=== PATIENT | male | born 1980 | race Caucasian/White ===

== ENCOUNTER 2018-05-19 19:47 | Emergency (ER) | payer OTHER, SELFPAY ==
[2018-05-19 19:50] VITALS: BP 134/93; PULSE 94; RESP 16; O2SAT 97
--- NOTE | 2018-05-19 20:09 | W.ED.GENAD ---
Discharge Plan Disposition Patient Disposition: HOME Condition: Good Discharge Details Chief Complaint: Headache Clinical Impression: HTN (hypertension), Acute tension headache Primary Care Provider: Roxann Mosher ED Provider: Quoc Ventura Home Meds and New Rx's Prescriptions: No Action cetirizine [Zyrtec] 10 MG capsule 10 mg PO DAILY RF: 0 Discharge Instructions Instructions: DASH Eating Plan (ED), Hypertension (ED) Additional Instructions: Please avoid salt in your diet. Please try to exercise regularly every day for at least one hour. Please try to lose 10-20 pounds over the next few months to improve your blood pressure. If you notice any worsening of your symptoms, or any new symptoms such as vomiting, diarrhea, fever, chills, shortness of breath, chest pain, numbness, weakness, or fainting , please return immediately to the emergency department for reevaluation. Please follow up with your primary care provider as soon as possible for reassessment and reevaluation. As always, it was a pleasure participating in your medical care today. Referrals: Roxann Mosher [Primary Care Provider] - Medical Decision Making This is a very pleasant 37-year-old male who presents for evaluation of hypertension. At home his systolic was in the 140s and diastolic in the 90s. He had a mildly associated headache, which she took Tylenol and is aspirin and had complete eventual resolution of the headache immediately prior to arrival. On arrival with repeat blood pressure assessment his blood pressure was in the 120s over the 80s. He demonstrates no focal neurologic deficits. His headache is resolved. He demonstrates no red flags for potential concerning headache. The headache was mainly in the posterior aspect of the neck. It was improved with massage. No evidence of meningitis. No systemic symptoms of fever numbness tingling or neurologic deficit. 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 He states that things have been extremely crazy over the last 1-2 weeks. He feels that this is part of his symptoms which I do agree with. He has been monitoring his salt intake, but admits that he has not been doing as well as he should. He denies any family history of myocardial infarction, intracranial aneurysm or stroke. He demonstrates no neurologic deficits at this time. I feel that his symptoms are most likely secondary to mild obesity, stress, salt intake, which inadvertently lead to a headache with his stress and worsening of his blood pressure. With normal blood pressure here, I feel that he can be safely discharged home with close follow-up with his primary care provider. I recommended follow-up for potential antihypertensive medication, as well as diet change recommendations, lifestyle changes, weight loss and exercise. I have extensively reviewed the treatment plan and discharge instructions with the patient and their family. I have addressed all patient concerns at this time. The patient and family was made aware of what symptoms to monitor for that would warrant a return to the emergency department. Discussed the plan with the patient and family, they demonstrate verbal understanding and agreement with our assessment and plan at this time. HPI General Date/Time Provider Initiated Documentation: 05/19/18 20:08. HPI Narrative: This is a 37-year-old male with no significant past medical history except for a Pj fundoplication secondary to GERD. He presents todayOut of concern for elevated blood pressure. 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 He states that he developed a mild headache earlier this morning. It was gradual in onset, not the worst headache of his life. He had no other associated symptoms of visual changes, fever, chills, thunderclap component, numbness, tingling, or weakness. The patient did take his blood pressure at home and noticed his systolic to be in the 130s and 140s, and his diastolic to be in the 90s. He came in for evaluation. He did take 2 Tylenol and 2 aspirin prior to arrival. Since then his headache has completely resolved, and he has no other complaints of pain or headache. When the patient did arrive he did check on his home blood pressure cuff and his blood pressure had returned to normal, this correlated with our machine with a systolic in the 120s and a diastolic in the 80s. Patient denies any previous cardiac history. He denies any family history of stroke, myocardial infarction, intracranial aneurysm, intracranial bleed, aortic aneurysm, aortic dissection. Patient denies any tobacco use. He states that he has been monitoring his regular salt intake as of late. Patient denies any cocaine, IV, or illicit drug use. Related Data Home Medications Medication Instructions Recorded Confirmed cetirizine [Zyrtec] 10 mg PO DAILY 12/14/15 02/05/17 Allergies Allergy/AdvReac Type Severity Reaction Status Date / Time apples Allergy Intermediate throat Uncoded 02/05/17 00:19 itching white birch pollen Allergy Intermediate Uncoded 02/05/17 00:19 General Stated Complaint: Headache RONDA: 3 Review of Systems Review of Systems All systems reviewed & are unremarkable except as noted in HPI and below PFSH Social History Smoking/Tobacco Use Status: Never Exam Narrative Exam Narrative: 1.Const: Well-nourished, Well-developed, appearing stated age 2.Eyes: PERRL, no conjunctival injection, and symmetrical lids. 3.ENT: Atraumatic external nose and ears. Moist MM. Neck: Symmetric, trachea midline, No thyromegaly. Patient demonstrates good movement of cervical neck. There is no nuchal rigidity, no nuchal tenderness. Patient is able to flex the neck without any difficulty or significant pain. Negative Kernig's and Brudzinski sign. 4.CVS: +S1/S2, No murmurs or gallops. Peripheral pulses 2+ and equal in all extremities. Brisk capillary refill in all extremities.Radial pulses +2 bilaterally specifically. 5.RESP: Unlabored respiratory effort. Clear to auscultation bilaterally. No wheezes rales or rhonchi 6.GI: Soft, Nontender/Nondistended, No hepatosplenomegaly. No guarding or rebound. 7.MSK: Normocephalic/Atraumatic, Extremities w/o deformity or ttp No cyanosis or clubbing, Normal movement of all extremities 8.Skin: Warm, Dry. No rashes or lesions. 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 Sensation grossly intact, no focal neurologic deficits. All 6 cardinal planes of vision or fully intact. No evidence of horizontal or vertical nystagmus. The patient demonstrated a normal [id number], good dexterity. There was no evidence of dysdiadochokinesia. Patient was able to ambulate without difficulty. There was no wide-based gait. Romberg, and [id number] are both normal on testing. Sensation was intact bilaterally as well as muscle strength bilaterally for all extremities. Patient was able to verbalize butter cup with no slurring, or miss pronunciation. 10.Psych: (AAO) x3. Appropriate mood and affect Course Vital Signs Pulse 94 H 05/19/18 19:50 Respiratory Rate 16 05/19/18 19:50 Blood Pressure 134/93 H 05/19/18 19:50 Pulse Oximetry 97 05/19/18 19:50 Pulse 94 H 05/19/18 19:50 Respiratory Rate 16 05/19/18 19:50 Respiratory Effort 05/19/18 19:55 Blood Pressure 134/93 H 05/19/18 19:50 Blood Pressure Position Sitting 05/19/18 19:50 Pulse Oximetry 97 05/19/18 19:50 Oxygen Delivery Method Room Air 05/19/18 19:50 Oxygen Flow Rate 0 05/19/18 19:50 Pain Level 4 05/19/18 19:57
--- NOTE | 2018-05-19 20:19 | ED.GENADUL_ITS ---
Discharge Plan Disposition Patient Disposition: HOME Condition: Good Discharge Details Chief Complaint: Headache Clinical Impression: HTN (hypertension), Acute tension headache Primary Care Provider: Roxann Mosher ED Provider: Quoc Ventura Home Meds and New Rx's Prescriptions: No Action cetirizine [Zyrtec] 10 MG capsule 10 mg PO DAILY RF: 0 Discharge Instructions Instructions: DASH Eating Plan (ED), Hypertension (ED) Additional Instructions: Please avoid salt in your diet. Please try to exercise regularly every day for at least one hour. Please try to lose 10-20 pounds over the next few months to improve your blood pressure. If you notice any worsening of your symptoms, or any new symptoms such as vomiting, diarrhea, fever, chills, shortness of breath , chest pain, numbness, weakness, or fainting , please return immediately to the emergency department for reevaluation. Please follow up with your primary care provider as soon as possible for reassessment and reevaluation. As always, it was a pleasure participating in your medical care today. Referrals: Roxann Mosher [Primary Care Provider] - Medical Decision Making This is a very pleasant 37-year-old male who presents for evaluation of hypertension. At home his systolic was in the 140s and diastolic in the 90s. He had a mildly associated headache, which she took Tylenol and is aspirin and had complete eventual resolution of the headache immediately prior to arrival. On arrival with repeat blood pressure assessment his blood pressure was in the 120s over the 80s. He demonstrates no focal neurologic deficits. His headache is resolved. He demonstrates no red flags for potential concerning headache. The headache was mainly in the posterior aspect of the neck. It was improved with massage. No evidence of meningitis. No systemic symptoms of fever numbness tingling or neurologic deficit. 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 He states that things have been extremely crazy over the last 1-2 weeks. He feels that this is part of his symptoms which I do agree with. He has been monitoring his salt intake, but admits that he has not been doing as well as he should. He denies any family history of myocardial infarction, intracranial aneurysm or stroke. He demonstrates no neurologic deficits at this time. I feel that his symptoms are most likely secondary to mild obesity, stress, salt intake, which inadvertently lead to a headache with his stress and worsening of his blood pressure. With normal blood pressure here, I feel that he can be safely discharged home with close follow-up with his primary care provider. I recommended follow-up for potential antihypertensive medication, as well as diet change recommendations, lifestyle changes, weight loss and exercise. I have extensively reviewed the treatment plan and discharge instructions with the patient and their family. I have addressed all patient concerns at this time. The patient and family was made aware of what symptoms to monitor for that would warrant a return to the emergency department. Discussed the plan with the patient and family, they demonstrate verbal understanding and agreement with our assessment and plan at this time. HPI General Date/Time Provider Initiated Documentation: 05/19/18 20:08 . HPI Narrative: This is a 37-year-old male with no significant past medical history except for a Pj fundoplication secondary to GERD. He presents todayOut of concern for elevated blood pressure. 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 He states that he developed a mild headache earlier this morning. It was gradual in onset, not the worst headache of his life. He had no other associated symptoms of visual changes, fever, chills, thunderclap component, numbness, tingling, or weakness. The patient did take his blood pressure at home and noticed his systolic to be in the 130s and 140s, and his diastolic to be in the 90s. He came in for evaluation. He did take 2 Tylenol and 2 aspirin prior to arrival. Since then his headache has completely resolved, and he has no other complaints of pain or headache. When the patient did arrive he did check on his home blood pressure cuff and his blood pressure had returned to normal, this correlated with our machine with a systolic in the 120s and a diastolic in the 80s. Patient denies any previous cardiac history. He denies any family history of stroke, myocardial infarction, intracranial aneurysm, intracranial bleed, aortic aneurysm, aortic dissection. Patient denies any tobacco use. He states that he has been monitoring his regular salt intake as of late. Patient denies any cocaine, IV, or illicit drug use. Related Data Home Medications Medication Instructions Recorded Confirmed cetirizine [Zyrtec] 10 mg PO DAILY 12/14/15 02/05/17 Allergies Allergy/AdvReac Type Severity Reaction Status Date / Time apples Allergy Intermediate throat Uncoded 02/05/17 00:19 itching white birch pollen Allergy Intermediate Uncoded 02/05/17 00:19 General Stated Complaint: Headache RONDA: 3 Review of Systems Review of Systems All systems reviewed & are unremarkable except as noted in HPI and below PFSH Social History Smoking/Tobacco Use Status: Never Exam Narrative Exam Narrative: 1.Const: Well-nourished, Well-developed, appearing stated age 2.Eyes: PERRL, no conjunctival injection, and symmetrical lids. 3.ENT: Atraumatic external nose and ears. Moist MM. Neck: Symmetric, trachea midline, No thyromegaly. Patient demonstrates good movement of cervical neck. There is no nuchal rigidity, no nuchal tenderness. Patient is able to flex the neck without any difficulty or significant pain. Negative Kernig's and Brudzinski sign. 4.CVS: +S1/S2, No murmurs or gallops. Peripheral pulses 2+ and equal in all extremities. Brisk capillary refill in all extremities.Radial pulses +2 bilaterally specifically. 5.RESP: Unlabored respiratory effort. Clear to auscultation bilaterally. No wheezes rales or rhonchi 6.GI: Soft, Nontender/Nondistended, No hepatosplenomegaly. No guarding or rebound. 7.MSK: Normocephalic/Atraumatic, Extremities w/o deformity or ttp No cyanosis or clubbing, Normal movement of all extremities 8.Skin: Warm, Dry. No rashes or lesions. 9.Neuro: vocational rehabilitation supervisor II-XII grossly intact. Sensation grossly intact, no focal neurologic deficits. All 6 cardinal planes of vision or fully intact. No evidence of horizontal or vertical nystagmus. The patient demonstrated a normal cnabrq-ejok-sshyvr, good dexterity. There was no evidence of dysdiadochokinesia. Patient was able to ambulate without difficulty. There was no wide-based gait. Romberg, and jqee-yp-vopl are both normal on testing. Sensation was intact bilaterally as well as muscle strength bilaterally for all extremities. Patient was able to verbalize butter cup with no slurring, or miss pronunciation. 10.Psych: (AAO) x3. Appropriate mood and affect Course Vital Signs Pulse 94 H 05/19/18 19:50 Respiratory Rate 16 05/19/18 19:50 Blood Pressure 134/93 H 05/19/18 19:50 Pulse Oximetry 97 05/19/18 19:50 Pulse 94 H 05/19/18 19:50 Respiratory Rate 16 05/19/18 19:50 Respiratory Effort 05/19/18 19:55 Blood Pressure 134/93 H 05/19/18 19:50 Blood Pressure Position Sitting 05/19/18 19:50 Pulse Oximetry 97 05/19/18 19:50 Oxygen Delivery Method Room Air 05/19/18 19:50 Oxygen Flow Rate 0 05/19/18 19:50 Pain Level 4 05/19/18 19:57
[2018-05-19 20:20] VITALS: BP 122/80
== END 2018-05-19 20:28 | disposition home or self-care (01) ==
LOC: ER 20:27
PROVIDERS: Emergency Provider Student in an Organized Health Care Education/Training Program; PCP Family Medicine
DX: G44.209 Tension-type headache, unspecified, not intractable (principal); I10 Essential (primary) hypertension
CPT/HCPCS: 99282

== ENCOUNTER 2021-05-05 06:20 | Emergency (ER) | payer OTHER, SELFPAY ==
[2021-05-05] VITALS (16 sets, daily range): BP systolic 106–127; BP diastolic 76–89; PULSE 74–96; RESP 9–25; TEMP 36.1–36.4; O2SAT 95–98
--- NOTE | 2021-05-05 06:30 | RT.EKG_ITS ---
APPROVED REPORT Exam: Resting ECG Reason for Exam: chest pain Patient Location: E HR:86 bpm ECG Measurements Heart Rate 86 AXIS LA 181 P 45 QRSd 95 QRS 24 QT 351 T 17 QTc 420 Conclusion Sinus rhythm...normal P axis, V-rate 60- 99 ST elev, probable normal early repol pattern...ST elevation, age<55 Physician: Rate 86, sinus rhythm, intervals stable, no significant ST elevation or depression, or the patient does have a Q wave and inverted T wave in lead III. Review of EKG from 2016 demonstrate sim mal findings
--- NOTE | 2021-05-05 06:37 | ED.GENADUL_ITS ---
Discharge Plan Disposition Patient Disposition: HOME Condition: Stable Discharge Details Clinical Impression: Abdominal pain, Back pain Primary Care Provider: Roxann Mosher ED Provider: Lashell Rahman Home Meds and New Rx's Prescriptions: New lidocaine [Lidoderm] 5 % adhesive patch,medicated 1 patch topical DAILY Qty: 15 RF: 0 No Action Zyrtec 10 MG capsule 10 mg PO DAILY RF: 0 atomoxetine [Strattera] 80 mg Capsule 80 mg PO DAILY RF: 0 Discharge Instructions Instructions: Biliary Colic (ED), Abdominal Pain (ED), Back Pain (ED) Additional Instructions: Please return immediately to the emergency department if you develop any new or worsening symptoms, if your condition does not improve as expected, or if you become otherwise concerned. It is extremely important that you call soon as possible to make an appointment to be seen in follow-up for this visit by your primary care doctor. Referrals: Roxann Mosher [Primary Care Provider] - Medical Decision Making <Quoc Ventura DO - Last Filed: 05/05/21 06:51> 40-year-old male with past medical history of ADHD presents today for evaluation of chest pain. Patient states that for the last 24 hours he developed a bandlike sensation around his chest, primarily on the right-hand side but some also on the left-hand side. It occurred at rest, and has continued on and off since then. He woke up this morning out of sleep with a notable worsening of the pain. Pain is also present with deep breathing and she feels like there is enhanced pain in his deepest breath. He denies history of cardiac disease, tobacco abuse. Denies PE risk factors such as recent long car rides, immobilization, recent surgery, prior history of DVT or PE, family history of PE or DVT, morbid obesity, exogenous estrogen and smoking, hem optysis, history of cancer. Patient did not take any medications for the pain today, and this pain is otherwise not changed. He denies any greasy food as the cause of her pain. Past surgical history is positive for Pj fundoplication 2016. Exam is relatively unremarkable, no rash or shingles, negative Humphries sign but he does have slight tenderness on deep inspiration in the right upper quadrant. Bedside ultrasound demonstrates the gallbladder wall which appears to be less than 3 mm. Questionable single large gallstone. Differential includes biliary colic, cardiac etiology, less likely PE. Will get D-dimer, give aspirin Toradol, monitor closely and reassess. Patient will be signed out to my colleague Dr. Adalgisa Rahman for final reassessment after labs and imaging return. EKG 6: 43 Rate 86, sinus rhythm, intervals stable, no significant ST elevation or depression, or the patient does have a Q wave and inverted T wave in lead III. Review of EKG from 2016 demonstrate similar findings. <Lashell Rahman MD - Last Filed: 05/05/21 12:15> Patient signed out to me at time of shift change by Dr. Ventura with chest x-ray, CT abdomen/pelvis pending. CT and CXR resulted as negative. On my assessment patient reports pain is mild. He reports pain just below/medial to his right shoulder blade, wrapping around into his right upper quadrant, significantly improved from his initial presentation. He denies any other pain or any other symptoms to me. There is a positive Humphries sign with mild right upper quadrant tenderness to palpation. No tenderness of the right thoracic or lumbar paraspinals, no tenderness of the right scapula. Concern for muscular skeletal pain versus biliary colic. Exam/hx at this time not c/w acute cholecystitis or other acute emergent biliary process. Patient is low risk for pulmonary embolism, I discussed discussed risks and benefits of CT chest with patient, with joint decision-making for plan for discharge to home at this point with return to emergency department for any worsening symptoms. Patient had not been taking any pain medication at home, plan for 400 mg ibuprofen 3 times daily as n eeded, will also prescribe Lidoderm patch. I had a lengthy discussion with Patient regarding return to emergency department precautions, home care, and importance of outpatient follow-up. Pt verbalizes understanding of the plan and is amenable. Patient discharged to home with clear plan for outpatient follow- up. All questions were answered. Disposition decision was made weighing the risks and benefits of hospitalization versus outpatient treatment, the risk for further decompensation, and the patient's wishes. Medical Records Medical records reviewed: Yes I reviewed the patient's medical records. Imaging Data Radiologic Study: Attestation: I personally reviewed and interpreted this imaging study as follows: Radiologist's impression: EXAM: XR CHEST 2V PA LATERAL CLINICAL HISTORY: chest pain TECHNIQUE: 2D digital imaging was performed. COMPARISON: CT RENAL COLIC WO CONTRAST from 04/25/[address] ABDOMEN PELVIS W from 05/05/2021 FINDINGS: MEDIASTINUM: Normal. HEART: Normal. PULMONARY VASCULATURE: Normal. LUNGS: Clear. PLEURAL SPACE: No pleural effusion or pneumothorax. BONE:Unremarkable for age. IMPRESSION: No acute abnormality. EXAM: CT ABDOMEN PELVIS W CLINICAL HISTORY: ruq pain, eval GB. TECHNIQUE: Imaging Protocol: Axial computed tomography images with coronal and sagittal reformatted images were created and reviewed CONTRAST MATERIAL: Intravenous: Omnipaque 350 Contrast volume:100 ml Oral: / no COMPARISON: CT RENAL COLIC WO CONTRAST from 04/25/2014 FINDINGS: ABDOMEN: Lung Bases: Normal where visualized. Liver: Normal density. No measurable mass. Gallbladder and biliary tract: No radiodense calculus or dilation. Pancreas: Normal density, no abnormal calcifications or inflammatory process. Spleen: Normal. Kidneys: Normal size, contour and axis. Two small nonobstructing stones right kidney. No obstructive uropathy. No masses seen. Adrenal glands: No masses seen. Abdominal Aorta: Abdominal portion non-dilated. Stomach: Hiatal hernia and fundoplication. PELVIS: Bladder: No gross wall thickening. No calculi.No focal mass. Bowel: No obstruction or bowel wall thickening. Appendix normal. Peritoneal cavity: No ascites, collection or mesenteric inflammatory response. Bones: Within normal limits for age. Reproductive organs: Within normal limits. Lymph nodes: Unremarkable. Impression: No acute abnormality. Gallbladder unremarkable by CT. Lab Data Lab results reviewed: Yes I reviewed the patient's lab results. ECG Data Attestation: I personally reviewed and interpreted this ECG (s) as follows: Interpretation: EKG shows sinus rhythm at 73, normal axis, no major change from prior 06:43 05/05/2021, no STEMI, nondiagnostic EKG HPI <Quoc Ventura DO - Last Filed: 05/05/21 06:51> General Date/Time Provider Initiated Documentation: 05/05/21 06:22 . HPI Narrative: 40-year-old male with past medical history of ADHD presents today for evaluation of chest pain. Patient states that for the last 24 hours he developed a bandlike sensation around his chest, primarily on the right-hand si de but some also on the left-hand side. It occurred at rest, and has continued on and off since then. He woke up this morning out of sleep with a notable worsening of the pain. Pain is also present with deep breathing and she feels like there is enhanced pain in his deepest breath. He denies history of cardiac disease, tobacco abuse. Denies PE risk factors such as recent long car rides, immobilization, recent surgery, prior history of DVT or PE, family history of PE or DVT, morbid obesity, exogenous estrogen and smoking, hemoptysis, history of cancer. Patient did not take any medications for the pain today, and this pain is otherwise not changed. He denies any greasy food as the cause of her pain. Past surgical history is positive for Pj fundoplication 2016. Related Data Home Medications Medication Instructions Recorded Confirmed Zyrtec 10 mg PO DAILY 12/14/15 05/05/21 atomoxetine [Strattera] 80 mg PO DAILY 05/05/21 05/05/21 lidocaine [Lidoderm] 1 patch TOPICAL DAILY #15 ea 05/05/21 Previous Rx's Medication Instructions Recorded lidocaine [Lidoderm] 1 patch TOPICAL DAILY #15 ea 05/05/21 Allergies Allergy/AdvReac Type Severity Reaction Status Date / Time apples Allergy Intermediate throat Uncoded 05/05/21 06:33 itching white birch pollen Allergy Intermediate Uncoded 05/05/21 06:33 General Stated Complaint: Nk/Back Pain RONDA: 2 Review of Systems <Quoc Ventura DO - Last Filed: 05/05/21 06:51> All systems reviewed & are unremarkable except as noted in HPI and below PFSH <Quoc Ventura DO - Last Filed: 05/05/21 06:51> Social History Smoking/Tobacco Use Status: Never Smoking risk assessment performed?: Yes Alcohol Intake: current Alcohol Intake frequency: holidays/special occasions only Drug use: Never Substance use type: does not use Do you feel safe at home: Yes Do you feel safe in your relationship?: Yes Exam <Quoc Ventura DO - Last Filed: 05/05/21 06:51> Narrative Exam Narrative: 1.Const: Well-nourished, Well-developed, appearing stated age 2.Eyes: PERRL, no conjunctival injection, and symmetrical lids. 3.ENT: Atraumatic external nose and ears. Moist MM. Neck: Symmetric, trachea midline, No thyromegaly. 4.CVS: +S1/S2, No murmurs or gallops. Peripheral pulses 2+ and equal in all extremities. Brisk capillary refill in all extremities. 5.RESP: Unlabored respiratory effort. Clear to auscultation bilaterally. No wheezes rales or rhonchi 6.GI: Soft, Nontender/Nondistended, No hepatosplenomegaly. No guarding or rebound. On deepest inspiration the patient has mild tenderness in the right upper quadrant, but otherwise negative Humphries sign. 7.MSK: Normocephalic/Atraumatic, Extremities w/o deformity or ttp No cyanosis or clubbing, Normal movement of all extremities 8.Skin: Warm, Dry. No rashes or lesions. 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 Sensation grossly intact, no focal neurologic deficits. 10.Psych: (AAO) x3. Appropriate mood and affect Course <Quoc Ventura DO - Last Filed: 05/05/21 06:51> Vital Signs Vital signs: Vital Signs Temperature 36.1 C L 05/05/21 06:25 Pulse 87 05/05/21 06:25 Respiratory Rate 14 05/05/21 06:25 Blood Pressure 122/85 05/05/21 06:25 Pulse Oximetry 98 05/05/21 06:25 Temperature 36.1 C L 05/05/21 06:25 Temperature Source Skin 05/05/21 06:25 Pulse 87 05/05/21 06:25 Respiratory Rate 14 05/05/21 06:25 Blood Pressure 122/85 05/05/21 06:25 Blood Pressure Position Sitting 05/05/21 06:25 Pulse Oximetry 98 05/05/21 06:25 Oxygen Delivery Method Room Air 05/05/21 06:25 Oxygen Flow Rate 0 05/05/21 06:25 Sign Out <Quoc Ventura DO - Last Filed: 05/05/21 06:51> Sign Out Data: Sign Out Comment: Bandlike chest pain, mild, pending labs, D-dimer imaging Last updated by Quoc Ventura DO at 05/05/21 07:07
[2021-05-05] MEDS: Aspirin 81 MG CHEW 324 MG CH (06:45)
[2021-05-05] MEDS: Ketorolac 15 MG/ML VIAL IVP (06:57)
[2021-05-05 07:03] LABS: Abs Immature Grans 0.01 10^3/uL (0.0-0.06); Absolute Basophil Count 0.03 10^3/uL (0.0-0.2); Absolute Eosinophil Count 0.17 10^3/uL (0.0-0.7); Absolute Lymphocyte Count 1.89 10^3/uL (1.2-3.4); Absolute Neutrophil Count 3.05 10^3/uL (1.2-6.7); Basophils % 0.5; HCT 50.8 % (40.0-50.0); HGB 17.4 g/dL (13.5-17.5); Immature Grans % 0.2; Lymphocytes % 32.9; MCH 30.7 pg (27.0-33.0); MCHC 34.3 % (32.0-36.0); MCV 89.8 fL (80-95); MPV 9.6 fL (8.0-11.0); Monocytes % 10.4; Nucleated RBC 0 %; Platelet Count 172 10^3/uL (130-400); RBC 5.66 10^6/uL (4.36-5.78); RDW-SD 39.2 fL; WBC 5.75 10^3/uL (4.4-10.8)
[2021-05-05 07:24] LABS: ALT 48 U/L (16-63); AST 21 U/L (15-37); Albumin 4.2 g/dL (3.4-5.0); Alkaline Phosphatase 67 U/L (46-116); Anion Gap 5.9 mmol/L (3-11); BUN 23 mg/dL (7-18); Bilirubin, Direct 0.2 mg/dL (0.0-0.2); Bilirubin, Total 0.9 mg/dL (0.2-1.0); CO2 31.1 mmol/L (21.0-32.0); CREATININE 1.3 mg/dL (0.70-1.30); Calcium 9.5 mg/dL (8.5-10.1); Chloride 103 mmol/L (98-107); Glucose 103 mg/dL (74-106); Lipase 169 U/L (73-393); Potassium 4.1 mmol/L (3.5-5.1); Sodium 140 mmol/L (136-145); Total Protein 7.7 g/dL (6.4-8.2)
[2021-05-05 07:26] LABS: Troponin I < 0.05 ng/mL (<0.06)
--- NOTE | 2021-05-05 07:30 | DI.CT_ITS ---
Exam(s) CT ABDOMEN PELVIS W EXAM: CT ABDOMEN PELVIS W CLINICAL HISTORY: ruq pain, eval GB. TECHNIQUE: Imaging Protocol: Axial computed tomography images with coronal and sagittal reformatted images were created and reviewed CONTRAST MATERIAL: Intravenous: Omnipaque 350 Contrast volume:100 ml Oral: / no COMPARISON: CT RENAL COLIC WO CONTRAST from 04/25/2014 FINDINGS: ABDOMEN: Lung Bases: Normal where visualized. Liver: Normal density. No measurable mass. Gallbladder and biliary tract: No radiodense calculus or dilation. Pancreas: Normal density, no abnormal calcifications or inflammatory process. Spleen: Normal. Kidneys: Normal size, contour and axis. Two small nonobstructing stones right kidney. No obstructiv e uropathy. No masses seen. Adrenal glands: No masses seen. Abdominal Aorta: Abdominal portion non-dilated. Stomach: Hiatal hernia and fundoplication. PELVIS: Bladder: No gross wall thickening. No calculi.No focal mass. Bowel: No obstruction or bowel wall thickening. Appendix normal. Peritoneal cavity: No ascites, collection or mesenteric inflammatory response. Bones: Within normal limits for age. Reproductive organs: Within normal limits. Lymph nodes: Unremarkable. Impression: No acute abnormality. Gallbladder unremarkable by CT.. RADIATION DOSE DELIVERED: 782.78mGy.cm Total DLP DATA REPOSITORY: All CT scans at this facility are submitted to the National Radiology Data Registry (NRDR) Dose Index Registry (DIR) with the [employer] (ACR). RADIATION OPTIMIZATION: All CT scans at this facility use at least one of these dose optimization te chniques: automated exposure control; mA and/or kV adjustment per patient size (includes targeted exa ms where dose is matched to clinical indication); or iterative reconstruction.
--- NOTE | 2021-05-05 07:30 | DI.RAD_ITS ---
Exam(s) XR CHEST 2V PA LATERAL EXAM: XR CHEST 2V PA LATERAL CLINICAL HISTORY: chest pain TECHNIQUE: 2D digital imaging was performed. COMPARISON: CT RENAL COLIC WO CONTRAST from 04/25/[address] ABDOMEN PELVIS W from 05/05/2021 FINDINGS: MEDIASTINUM: Normal. HEART: Normal. PULMONARY VASCULATURE: Normal. LUNGS: Clear. PLEURAL SPACE: No pleural effusion or pneumothorax. BONE:Unremarkable for age. IMPRESSION: No acute abnormality. DATA REPOSITORY: RADIATION DOSE DELIVERED:
[2021-05-05 07:38] LABS: D-Dimer 131 ng/mlFEU (<500)
[2021-05-05] MEDS: Omnipaque 350 MG/ML 100 ML BTL IJ (08:04)
[2021-05-05] MEDS: Normal Saline Flush 10 ML SYR IVP (08:05)
--- NOTE | 2021-05-05 09:15 | RT.EKG_ITS ---
APPROVED REPORT Exam: Resting ECG Reason for Exam: chest pain Patient Location: E HR:73 bpm ECG Measurements Heart Rate 73 AXIS NH 204 P 59 QRSd 80 QRS 30 QT 353 T 29 QTc 388 Conclusion Sinus rhythm...normal P axis, V-rate 60- 99 Borderline prolonged NH interval...NH >202, V-rate 50- 90 ST elev, probable normal early repol pattern...ST elevation, age<55 sinus rhythm at 73, normal axis, no major change from prior 06:43 05/05/2021, no STEMI, nondiagnostic EKG
[2021-05-05 09:55] LABS: Troponin I < 0.05 ng/mL (<0.06)
== END 2021-05-05 11:56 | disposition home or self-care (01) ==
PROVIDERS: Student in an Organized Health Care Education/Training Program; Emergency Provider Student in an Organized Health Care Education/Training Program; PCP Family Medicine
DX: R10.11 Right upper quadrant pain (principal); M54.9 Dorsalgia, unspecified; R07.9 Chest pain, unspecified
CPT/HCPCS: 36415; 80053; 83690; 93005; 96374; 99285; 71046; 74177; 82248; 84484; 85025; 85379; 93010; 99284; J1885; J3490

== ENCOUNTER 2022-06-14 21:52 | Emergency (ER) | payer OTHER, SELFPAY ==
[2022-06-14 21:57] VITALS: BP 132/91; PULSE 92; RESP 16; TEMP 36.8; O2SAT 100
--- NOTE | 2022-06-14 22:00 | DI.CT_ITS ---
Exam(s) CT RENAL COLIC WO EXAM: CT RENAL COLIC WO CLINICAL HISTORY: left flank pain. TECHNIQUE: Imaging Protocol: Axial computed tomography images with coronal and sagittal reformatted images were created and reviewed. CONTRAST MATERIAL: Noncontrast COMPARISON: CT CT ABDOMEN PELVIS W from 05/05/2021 FINDINGS: ABDOMEN: Lung Bases: Normal where visualized. Prior fundoplication with herniation of the Pj wrap through the hiatus. Liver: Normal attenuation. No measurable mass. Gallbladder and biliary tract: No radiodense calculus or dilation. Pancreas: Normal density, no calcifications or inflammatory process. Spleen: Normal. Kidneys: Normal size, contour and axis. 2 millimeter stone in distal left ureter causing mild hydrone phrosis. Additional tiny nonobstructing stone lower pole left kidney. 4 millimeter stone upper pole right kidney no masses seen. Adrenal glands: No masses seen. Abdominal Aorta: Abdominal portion non-dilated. PELVIS: Bladder: Symmetric distention, no gross wall thickening. No evidence of stones.No visible mass. Bowel: No obstruction or bowel wall thickening. Reproductive: Unremarkable. Peritoneal cavity: No ascites, collection or mesenteric inflammatory response. Bones: Unremarkable for age.. IMPRESSION: Mild left hydronephrosis secondary to 2 millimeter stone in the distal ureter. Additional bilateral nonobstructing stones. Hiatal hernia and prior fundoplication. RADIATION DOSE DELIVERED: 849.16mGy.cm Total DLP DATA REPOSITORY: All CT scans at this facility are submitted to the National Radiology Data Registry (NRDR) Dose Index Registry (DIR) with the [employer] (ACR). RADIATION OPTIMIZATION: All CT scans at this facility use at least one of these dose optimization te chniques: automated exposure control; mA and/or kV adjustment per patient size (includes targeted exa ms where dose is matched to clinical indication); or iterative reconstruction.
[2022-06-14 22:09] LABS: Bilirubin Negative (Negative); Blood Trace-intact (Negative); Clarity Clear (Clear); Glucose Negative (Negative); Ketones Negative (Negative); Leukocyte Esterase Negative (Negative); Nitrite Negative (Negative); Specific Gravity <= 1.005 (1.005-1.025); Urobilinogen 0.2 EU/dL (Up TO 0.2)
[2022-06-14 22:18] LABS: RBC 0-2 HPF (0-2); WBC 0-2 HPF (0-5)
--- NOTE | 2022-06-14 22:18 | ED.GENADUL_ITS ---
Discharge Plan Disposition Patient Disposition: HOME Condition: Stable Discharge Details Clinical Impression: Abdominal pain, Kidney stone Primary Care Provider: Roxann Mosher ED Provider: Jagjit Valdivia Home Meds and New Rx's Prescriptions: Continued Zyrtec 10 MG capsule 10 mg PO DAILY atomoxetine [Strattera] 80 mg Capsule 80 mg PO DAILY lidocaine [Lidoderm] 5 % adhesive patch,medicated 1 patch topical DAILY Qty: 15 0RF Rx Instructions: leave on most painful area for up to 12 hrs, use no more than one patch per 24 hour period Discharge Instructions Instructions: Kidney Stones (ED) Additional Instructions: you should be contacted with an appointment for urology if you develop severe uncontrolled pain, persistent vomiting or fevers return to the emergency department Medical Decision Making 41 yo male who states he has a history of kidney stones comes in with cc of left lower abdomen and back pain and states it feels like prior kidney stones that he has had. He states it started today, no vomiting or fever and no painful urination and hasn't noticed hematuria. HE localizes the pain to the left lower back and lower abdomen. He arrives stable and appears well speaking in full sentences. He has no abdominal tenderness, no testicle swelling or pain. No cva tenderness. Given his history and location of pain will obtain cbc, cmp, lipase and ct renal colic to further evaluate. labs unremarkable, ua shows no sign of infection, has a distal left 2mm ureter stone, prior pj fundolipication and hiatal hernia which patient states he has had chronically, no upper abdomen pain or other symptoms to suggest obstruction or mesenteric ischemia, no upper abdominal tenderness or distention. He feels significantly better and feels well enough for d/c. He declines prescriptions for opiates. He will be placed on urology follow up list to be seen as soon as possible, return precautions given Differential Diagnosis Differential Diagnosis: kidney stone, diverticulitis Imaging Data Radiologic Study: Attestation: I personally reviewed and interpreted this imaging study as follows: Imaging: CT Scan Radiologist's impression: IMPRESSION: 1. 2 mm obstructing stone in the distal left ureter 2. 3 mm x 4 mm nonobstructing right renal calculus. 3. Apparent prior Pj fundoplication. Correlation with surgical history recommended. 3.1 cm x 4.0 cm hiatal hernia with apparent herniation of the Pj wrap through the diaphragmatic hiatus. Lab Data Lab results reviewed: Yes I reviewed the patient's lab results. HPI General Mode of arrival: ambulatory . Date/Time Provider Initiated Documentation: 06/14/22 21:53 . Limitations to Documentation: no limitations . Information obtained by: patient . History of Present Illness 41 year old M presents to the emergency department with the chief complaint of left flank pain, described as moderate, with intensity rated at 4. Quality is described as stabbing and aching, and is localized to the abdomen. Patient reports radiation to back. Patient started experiencing this day(s) (1) and it has been intermittent. No relieving factors improve symptom(s), No exacerbating factors reported . Patient notes no other symptoms.; denies fever/chills. Patient did receive the following treatments prior to arrival, none Related Data Home Medications Medication Instructions Recorded Confirmed cetirizine 10 mg capsule (Zyrtec) 10 mg PO DAILY 12/14/15 06/14/22 atomoxetine 80 mg capsule 80 mg PO DAILY 05/05/21 06/14/22 (Strattera) lidocaine 5 % topical patch 1 patch topical DAILY #15 ea 05/05/21 06/14/22 (Lidoderm) Previous Rx's Medication Instructions Recorded lidocaine 5 % topical patch 1 patch topical DAILY #15 ea 05/05/21 (Lidoderm) Allergies Allergy/AdvReac Type Severity Reaction Status Date / Time apples Allergy Intermediate throat Uncoded 06/14/22 22:03 itching white birch pollen Allergy Intermediate Uncoded 06/14/22 22:03 General Stated Complaint: FlankPain RONDA: 3 Review of Systems All systems reviewed & are unremarkable except as noted in HPI and below Constitutional Constitutional: Denies chills, Denies fever(s) and Denies weakness Cardiovascular Cardiovascular: Denies chest pain and Denies dyspnea Respiratory Respiratory: Denies cough and Denies dyspnea Gastrointestinal Gastrointestinal: Denies vomiting Genitourinary Genitourinary: Denies dysuria Neurologic Neurologic: Denies weakness PFSH All Active Problems (Updated 06/14/22 @ 23:34 by Jagjit Valdivia MD) Abdominal pain (Acute) Back pain (Acute) Kidney stone (Chronic) Social History Smoking/Tobacco Use Status: Never Smoking risk assessment performed?: Yes Alcohol Intake: current Alcohol Intake frequency: holidays/special occasions only Drug use: Never Substance use type: does not use Do you feel safe at home: Yes Do you feel safe in your relationship?: Yes Exam Const General: no acute distress Orientation: alert HENMT Head: normal to inspection Ears: external ears normal General nose exam: external nose normal Mouth: moist mucous membranes Eyes General: appearance normal, both eyes and all related structures Neck Neck: normal visual inspection Resp Effort & Inspection: normal respiratory effort and able to speak in complete sentences Cardio Rate: regular rate GI Palpation: soft and nontender Skin General skin exam: no rashes or lesions noted Neuro General: patient alert and patient oriented x3 Extrem General: normal to inspection Psych Mental Status: mental status grossly normal Course Vital Signs Vital signs: Vital Signs Temperature 36.8 C 06/14/22 21:57 Pulse 92 H 06/14/22 21:57 Respiratory Rate 16 06/14/22 21:57 Blood Pressure 132/91 H 06/14/22 21:57 Pulse Oximetry 100 06/14/22 21:57 Temperature 36.8 C 06/14/22 21:57 Temperature Source Oral 06/14/22 21:57 Pulse 92 H 06/14/22 21:57 Respiratory Rate 16 06/14/22 21:57 Respiratory Effort 06/14/22 21:57 Blood Pressure 132/91 H 06/14/22 21:57 Blood Pressure Position Supine 06/14/22 21:57 Pulse Oximetry 100 06/14/22 21:57 Pain Level 4 06/14/22 22:07
[2022-06-14 22:19] LABS: Bacteria Rare HPF (Negative); C & S Indicated? No; Casts Negative LPF (Negative); Crystals Negative HPF (Negative); Epithelial Cells Negative HPF (Negative); Mucus Trace (Negative)
[2022-06-14] MEDS: Normal Saline 1,000 ML 1000 ML IV (22:25)
[2022-06-14] MEDS: Ketorolac 15 MG/ML VIAL IVP (22:31)
[2022-06-14 22:32] LABS: Abs Immature Grans 0.02 10^3/uL (0.0-0.06); Absolute Basophil Count 0.05 10^3/uL (0.0-0.2); Absolute Eosinophil Count 0.23 10^3/uL (0.0-0.7); Absolute Lymphocyte Count 2.03 10^3/uL (1.2-3.4); Absolute Monocyte Count 0.82 10^3/uL (0.1-0.8); Absolute Neutrophil Count 4.13 10^3/uL (1.2-6.7); Basophils % 0.7; Eosinophils % 3.2; HCT 46.2 % (40.0-50.0); HGB 16.3 g/dL (13.5-17.5); Immature Grans % 0.3; Lymphocytes % 27.9; MCH 31.2 pg (27.0-33.0); MCHC 35.3 % (32.0-36.0); MCV 89 fL (80-95); MPV 9.3 fL (8.0-11.0); Monocytes % 11.3; Neutrophils % 56.6; Platelet Count 192 10^3/uL (130-400); RBC 5.22 10^6/uL (4.36-5.78); RDW-SD 39.1 fL; WBC 7.28 10^3/uL (4.4-10.8)
[2022-06-14 22:48] LABS: ALT 47 U/L (16-63); AST 26 U/L (15-37); Albumin 4.1 g/dL (3.4-5.0); Alkaline Phosphatase 104 U/L (46-116); Anion Gap 6.1 mmol/L (3-11); BUN 15 mg/dL (7-18); Bilirubin, Total 0.4 mg/dL (0.2-1.0); CO2 29.9 mmol/L (21.0-32.0); Calcium 9.4 mg/dL (8.5-10.1); Chloride 105 mmol/L (98-107); Estimated GFR 96.37 (mL/min/1.73m2); Glucose 101 mg/dL (74-106); Lipase 127 U/L (73-393); Potassium 3.9 mmol/L (3.5-5.1); Sodium 141 mmol/L (136-145); Total Protein 7.5 g/dL (6.4-8.2)
--- NOTE | 2022-06-14 23:17 | DI.VRAD_ITS ---
PROCEDURE INFORMATION: Exam: CT Abdomen And Pelvis Without Contrast Exam date and time: 06/14/2022 10:49 PM Age: 41 years old Clinical indication: Abdominal pain; Flank; Lower; Additional info: Left flank pain TECHNIQUE: Imaging protocol: Computed tomography of the abdomen and pelvis without contrast. Radiation optimization: All CT scans at this facility use at least one of these dose optimization techniques: automated exposure control; mA and/or kV adjustment per patient size (includes targeted exams where dose is matched to clinical indication); or iterative reconstruction. COMPARISON: CT ABDOMEN PELVIS W 05/05/2021 8:07 AM FINDINGS: Lungs: Lung bases clear. Liver: Grossly unremarkable unenhanced liver. Gallbladder and bile ducts: Gallbladder partially collapsed. No calcified gallstones seen. No biliary dilatation. Pancreas: Grossly unremarkable unenhanced pancreas. Spleen: Grossly unremarkable unenhanced spleen. Adrenal glands: Normal appearing adrenal glands. Kidneys and ureters: 2 mm stone in the distal left ureter with upstream ureterectasis, periureteral edema, and mild hydronephrosis. 3 mm x 4 mm nonobstructing right renal calculus. No right-sided hydronephrosis or ureterectasis. Stomach and bowel: Suggestion of a prior Pj fundoplication. Correlation with surgical history recommended. 3.1 cm x 4.0 cm hiatal hernia with apparent herniation of the Pj wrap through the diaphragmatic hiatus. No oral contrast. Stomach partially distended with ingested material. No small bowel dilatation to suggest obstruction. Colon largely well evacuated of fecal material. No evidence of diverticulitis or colitis. Appendix: Normal appendix. Intraperitoneal space: No gross ascites or free air. Vasculature: Normal caliber abdominal aorta. Lymph nodes: No pathologically enlarged mesenteric, retroperitoneal, or pelvic sidewall lymph nodes. Urinary bladder: Normal appearing urinary bladder. Reproductive: Normal-appearing prostate gland and seminal vesicles. Bones/joints: No acute fracture seen among the bones of the abdomen or pelvis. Soft tissues: Small fat containing ventral hernia at the umbilicus. IMPRESSION: 1. 2 mm obstructing stone in the distal left ureter 2. 3 mm x 4 mm nonobstructing right renal calculus. 3. Apparent prior Pj fundoplication. Correlation with surgical history recommended. 3.1 cm x 4.0 cm hiatal hernia with apparent herniation of the Pj wrap through the diaphragmatic hiatus. Dictated and Authenticated by: Marv Garcia MD. Ordering:LYNN Danielson MD
[2022-06-14 23:39] VITALS: BP 118/76; PULSE 81; RESP 16; TEMP 36.8; O2SAT 98
--- NOTE | 2022-06-15 00:17 | NUR.NOTE ---
Referral faxed to [facility] Urology to f/u for kidney stone.Nursing Note:
== END 2022-06-14 23:40 | disposition home or self-care (01) ==
PROVIDERS: Emergency Provider Emergency Medicine; PCP Family Medicine
DX: N20.2 Calculus of kidney with calculus of ureter (principal)
CPT/HCPCS: 80053; 83690; 96361; 96374; 96375; 99284; 74176; 81003; 81015; 85025; J1885

== ENCOUNTER 2022-06-15 08:12 | Emergency (ER) | payer OTHER, SELFPAY ==
[2022-06-15 08:16] VITALS: BP 155/103; PULSE 77; RESP 18; TEMP 35.9; O2SAT 100
--- NOTE | 2022-06-15 08:53 | ED.GENADUL_ITS ---
Discharge Plan Disposition Patient Disposition: HOME Condition: Stable Discharge Details Clinical Impression: Kidney stone Primary Care Provider: Roxann Mosher ED Provider: Celi Morton Home Meds and New Rx's Prescriptions: New ketorolac 10 mg tablet 10 mg PO QID PRN (Reason: pain) 5 Days Qty: 14 0RF oxycodone 5 mg tablet 5 mg PO QID PRN (Reason: pain) Qty: 7 0RF tamsulosin [Flomax] 0.4 mg capsule 0.4 mg PO DAILY Qty: 7 0RF Rx Instructions: may stop after passage of ston Continued Zyrtec 10 MG capsule 10 mg PO DAILY atomoxetine [Strattera] 80 mg Capsule 80 mg PO DAILY lidocaine [Lidoderm] 5 % adhesive patch,medicated 1 patch topical DAILY Qty: 15 0RF Rx Instructions: leave on most painful area for up to 12 hrs, use no more than one patch per 24 hour period Discharge Instructions Instructions: Kidney Stones (ED) Additional Instructions: Concerned that your stone continues to cause you pain. Based on the migration of pain, does not like this is working its way down. To help with passage, you are given 1 dose of Flomax here today. Next dose will be due tomorrow. You may stop this medication after the passage of the stone. Please continue with Tylenol as needed for discomfort. You may also use ketorolac which an anti- inflammatory as prescribed for pain. Please do not take this more than 5 days. After that time, if pain persist you may switch to ibuprofen. Please do not use ibuprofen or other anti-inflammatory medications while taking the ketorolac. If this does not alleviate your discomfort to tolerable level, please use the oxycodone as prescribed. Do not drink alcohol or drive while taking this medication. Please encourage hydration. Urology will call you to schedule follow-up appointment. If you develop fever/chills, uncontrolled pain, inability stay hydrated or other new/worsening symptoms please seek care urgently once again. Referrals: Jignesh Montoya MD [ [facility] STAFF PHYSICIAN] - Discharge Data Discharge Date/Time-TO BE ENTERED AT DEPARTURE: 06/15/22 12:50 Medical Decision Making Patient is a pleasant 41-year-old male presenting today with severe pain to the left lower abdomen. He was seen here last night for the same. At that time, he was diagnosed with obstructing 2 mm stone. He states that he does have a history of kidney stones, last prior to this event, was about 10 years ago. He states that compared to last night, the pain significantly increased and is now rating it a 10 out of 10. He does have some nausea and vomiting through the night. Is also concerned that he has had decreased urinary output despite trying to increase his fluid intake. Denies any fevers or chills. Is not currently nauseated. Denies any change in bowel habits. On exam, patient appears uncomfortable. Lungs are clear, normal cardiac exam. He has no peritoneal findings on exam but he has pinpoint tenderness in the left lower quadrant as well as left CVA tenderness. We will give ketorolac to help with discomfort. Patient's been using acetaminophen at home. Will give fluids and recheck patient's kidney function. We will also begin the patient on Flomax. While the stone is quite small, there was obstructive features to this. Patient states that he has been on this in the past for similar stones. Patient states pain improved to some degree, still having more discomfort than if he can handle or would be able to sleep with. Will augment with dilaudid. Labs reviewed. Leukocytosis noted but no indication of infection on UA. This is likely associated with pain. Creatinine elevated at 1.4. Consulted with Cecelia Humphrey NP. We discussed workup and results. She advised that the size the flomax should allow this to pass. She advised that his last stone, that was about the same size, lasted about a month. She has asked her tea m to call with f/u appointment. She also advised to have him increase hydration, concerned this may be driving jennifer creatinine elevation. Discussed with patient. He is feeling signficantly better. He feels ready for d/c to home. Will have him continue with Ketoralac, advaised against other NSAIDS. Encouraged hydration. Gretchen navarroo send home with small prescription for opioids for breakthrough pain. Advised he not drive or drink ETOH while using this. Discussed safe usage. Return precautions discussed, all of his quesitons and concerns were addressed, he is in agreement with this plan. HPI General Date/Time Provider Initiated Documentation: 06/15/22 08:29 . Limitations to Documentation: no limitations . Information obtained by: patient, family, RN notes reviewed and old records reviewed . History of Present Illness 41 year old M presents to the emergency department with the chief complaint of LLQ pain, known kidney stone, described as severe, with intensity rated at 10. Quality is described as stabbing, and is localized to the abdomen. Patient reports no radiation. Patient started experiencing this day(s) and it has been constant. No relieving factors improve symptom(s), No exacerbating factors reported . Patient notes loss of appetite (nausea/vomiting); denies chest pain, cough, diaphoresis, fever/chills, nausea/vomiting, shortness of breath and weakness. Patient did receive the following treatments prior to arrival, none Related Data Home Medications Medication Instructions Recorded Confirmed cetirizine 10 mg capsule (Zyrtec) 10 mg PO DAILY 12/14/15 06/14/22 atomoxetine 80 mg capsule 80 mg PO DAILY 05/05/21 06/14/22 (Strattera) lidocaine 5 % topical patch 1 patch topical DAILY #15 ea 05/05/21 06/14/22 (Lidoderm) ketorolac 10 mg tablet 10 mg PO QID PRN pain 5 days #14 06/15/22 tabs oxycodone 5 mg tablet 5 mg PO QID PRN pain #7 tabs 06/15/22 tamsulosin 0.4 mg capsule (Flomax) 0.4 mg PO DAILY #7 caps 06/15/22 Previous Rx's Medication Instructions Recorded lidocaine 5 % topical patch 1 patch topical DAILY #15 ea 05/05/21 (Lidoderm) ketorolac 10 mg tablet 10 mg PO QID PRN pain 5 days #14 06/15/22 tabs oxycodone 5 mg tablet 5 mg PO QID PRN pain #7 tabs 06/15/22 tamsulosin 0.4 mg capsule (Flomax) 0.4 mg PO DAILY #7 caps 06/15/22 Allergies Allergy/AdvReac Type Severity Reaction Status Date / Time apples Allergy Intermediate throat Uncoded 06/15/22 08:18 itching white birch pollen Allergy Intermediate Uncoded 06/15/22 08:18 General Stated Complaint: Abd Prob RONDA: 3 Review of Systems Constitutional Constitutional: Reports as per HPI, Denies chills, Denies fever(s) and Denies headache(s) ENT Ears, Nose, Mouth, and Throat: Denies headache(s) Cardiovascular Cardiovascular: Reports as per HPI, Denies chest pain and Denies dyspnea Respiratory Respiratory: Reports as per HPI, Denies cough and Denies dyspnea Gastrointestinal Gastrointestinal: Reports as per HPI Genitourinary Genitourinary: Reports as per HPI Musculoskeletal Musculoskeletal: Reports as per HPI Neurologic Neurologic: Denies headache(s) PFSH All Active Problems (Updated 06/15/22 @ 12:40 by ADIN Tobias) Abdominal pain (Acute) Back pain (Acute) Kidney stone (Chronic) Social History Smoking/Tobacco Use Status: Never Smoking risk assessment performed?: Yes Alcohol Intake: current Alcohol Intake frequency: holidays/special occasions only Drug use: Never Substance use type: does not use Do you feel safe at home: Yes Do you feel safe in your relationship?: Yes Exam Const General: cooperative, healthy appearing, uncomfortable, no acute distress and well developed Nutritional Appearance: average body habitus and well nourished Orientation: alert and awake HENDE Mouth: moist mucous membranes Resp Effort & Inspection: normal respiratory effort and no respiratory distress Auscultation: clear to auscultation bilaterally, no rales, no rhonchi and no w heezes Cardio Rate: regular rate Rhythm: regular rhythm Heart Sounds: S1 normal and S2 normal GI Inspection: normal to inspection, no edema and non-distended Palpation: soft, no hepatosplenomegaly, no guarding, no hernias, no pulsatile masses and tender in the LLQ; obturator sign negative and psoas sign negative Percussion: normal to percussion Auscultation: normal bowel sounds Back/Spine/Pelvis Back: CVA tenderness (left) Skin General skin exam: no rashes or lesions noted Neuro General: patient alert and patient awake Cognition: normal cognition Speech: speech normal Gait: normal gait Psych Appearance: grossly normal and well kempt Mental Status: mental status grossly normal Speech and Movement: speech and movement normal Course Vital Signs Vital signs: Vital Signs Temperature 35.9 C L 06/15/22 08:16 Pulse 77 06/15/22 08:16 Respiratory Rate 18 06/15/22 08:16 Blood Pressure 155/103 H 06/15/22 08:16 Pulse Oximetry 100 06/15/22 08:16 Temperature 35.9 C L 06/15/22 08:16 Temperature Source Tympanic 06/15/22 08:16 Pulse 77 06/15/22 08:16 Respiratory Rate 18 06/15/22 08:16 Respiratory Effort Non-Labored 06/15/22 08:19 Blood Pressure 155/103 H 06/15/22 08:16 Blood Pressure Position Sitting 06/15/22 08:16 Pulse Oximetry 100 06/15/22 08:16 Oxygen Delivery Method Room Air 06/15/22 08:16 Oxygen Flow Rate 0 06/15/22 08:16 Pain Level 10 06/15/22 08:16
[2022-06-15 09:38] LABS: HCT 44.5 % (40.0-50.0); HGB 15.7 g/dL (13.5-17.5); MCH 31.3 pg (27.0-33.0); MCHC 35.3 % (32.0-36.0); MCV 89 fL (80-95); MPV 9.8 fL (8.0-11.0); Platelet Count 201 10^3/uL (130-400); RBC 5.02 10^6/uL (4.36-5.78); RDW 12.1 % (11.8-14.1); RDW-SD 39.3 fL; WBC 13.47 10^3/uL (4.4-10.8)
[2022-06-15] MEDS: Ketorolac 15 MG/ML VIAL IVP (09:43)
[2022-06-15] MEDS: Tamsulosin 0.4 MG CAPCR PO (09:43)
[2022-06-15] MEDS: Lactated Ringers 1,000 ML 1000 ML IV (09:44)
[2022-06-15 09:57] LABS: ALT 50 U/L (16-63); AST 21 U/L (15-37); Albumin 4.2 g/dL (3.4-5.0); Alkaline Phosphatase 82 U/L (46-116); Anion Gap 7.7 mmol/L (3-11); BUN 15 mg/dL (7-18); Bilirubin, Total 0.6 mg/dL (0.2-1.0); CO2 28.3 mmol/L (21.0-32.0); CREATININE 1.4 mg/dL (0.70-1.30); Calcium 9.1 mg/dL (8.5-10.1); Chloride 102 mmol/L (98-107); Estimated GFR 64.36 (mL/min/1.73m2); Glucose 134 mg/dL (74-106); Potassium 3.8 mmol/L (3.5-5.1); Sodium 138 mmol/L (136-145); Total Protein 7.5 g/dL (6.4-8.2)
[2022-06-15 10:35] LABS: Bilirubin Negative (Negative); Blood Trace-lysed (Negative); Clarity Clear (Clear); Glucose 250 mg/dL (Negative); Ketones 15 mg/dL (Negative); Leukocyte Esterase Negative (Negative); Nitrite Negative (Negative); Specific Gravity >= 1.030 (1.005-1.025); Urobilinogen 0.2 EU/dL (Up TO 0.2)
[2022-06-15 10:44] LABS: Bacteria Few HPF (Negative); C & S Indicated? Yes; Casts Negative LPF (Negative); Crystals Negative HPF (Negative); Epithelial Cells Rare HPF (Negative); Mucus Moderate (Negative); WBC 0-2 HPF (0-5)
[2022-06-15] MEDS: HYDROmorphone 2 MG/ML SYR 1 MG IVP (11:56)
[2022-06-15 12:43] VITALS: BP 140/79; PULSE 86; RESP 15; O2SAT 98
== END 2022-06-15 12:50 | disposition home or self-care (01) ==
PROVIDERS: Emergency Provider Physician Assistant; PCP Family Medicine
DX: N20.0 Calculus of kidney (principal); R39.12 Poor urinary stream
CPT/HCPCS: 36415; 80053; 85027; 96361; 96374; 96375; 99284; 81003; 81015; 87086; 99283; J1170; J1885

== ENCOUNTER 2022-07-17 18:23 | Emergency (ER) | payer OTHER, SELFPAY ==
[2022-07-17 18:28] VITALS: BP 145/87; PULSE 96; RESP 18; TEMP 37; O2SAT 100
--- NOTE | 2022-07-17 18:45 | DI.CT_ITS ---
Exam(s) CT RENAL COLIC WO EXAM: CT RENAL COLIC WO CLINICAL HISTORY: Hx of Right Kidney stone, RLQ pain, fever. TECHNIQUE: Imaging Protocol: Axial computed tomography images with coronal and sagittal reformatted images were created and reviewed. CONTRAST MATERIAL: Noncontrast COMPARISON: CT CT RENAL COLIC WO from 06/14/2022 FINDINGS: ABDOMEN: Lung Bases: Atelectasis. Small hiatal hernia. Apparent prior fundoplication. Liver: Fatty infiltration. No measurable mass. Gallbladder and biliary tract: No radiodense calculus or dilation. Pancreas: Normal density, no calcifications or inflammatory process. Spleen: Normal. Kidneys: Normal size, contour and axis. 7 millimeter stone in the distal right ureter causing modera te hydronephrosis. There is some perinephric stranding saw some stranding around the right ureter. No additional right sided calculi. Tiny nonobstructing left renal stone. No masses seen. Adrenal glands: No masses seen. Abdominal Aorta: Abdominal portion non-dilated. Soft tissues: Tiny fat containing umbilical hernia. PELVIS: Bladder: Symmetric distention, no gross wall thickening. No evidence of stones.No visible mass. Bowel: No obstruction or bowel wall thickening. Reproductive: Peritoneal cavity: Small amount of fluid low in the pelvis Bones: Unremarkable for age.. Soft tissues: Small fatty containing left inguinal hernia. IMPRESSION: 7 millimeter stone distal right ureter causing moderate right hydronephrosis. RADIATION DOSE DELIVERED: 789.15mGy.cm Total DLP DATA REPOSITORY: All CT scans at this facility are submitted to the National Radiology Data Registry (NRDR) Dose Index Registry (DIR) with the [employer] ([employer]). RADIATION OPTIMIZATION: All CT scans at this facility use at least one of these dose optimization te chniques: automated exposure control; mA and/or kV adjustment per patient size (includes targeted exa ms where dose is matched to clinical indication); or iterative reconstruction.
[2022-07-17 18:46] LABS: Bilirubin Negative (Negative); Blood Negative (Negative); Clarity Clear (Clear); Glucose 100 mg/dL (Negative); Ketones Negative (Negative); Leukocyte Esterase Negative (Negative); Nitrite Negative (Negative); Specific Gravity 1.015 (1.005-1.025); Urobilinogen 0.2 EU/dL (Up TO 0.2); pH 6.5 (5-8)
--- NOTE | 2022-07-17 18:50 | ED.GENADUL_ITS ---
Discharge Plan Disposition Patient Disposition: Home Condition: Stable Discharge Details Clinical Impression: Right ureteral stone Primary Care Provider: Roxann Mosher ED Provider: Lillian Mcqueen Home Meds and New Rx's Prescriptions: New ketorolac 10 mg tablet 10 mg PO TID PRN (Reason: pain) 5 Days Qty: 15 0RF ondansetron 4 mg tablet,disintegrating 4 mg PO Q8H PRN5 Days Qty: 15 0RF No Action tamsulosin [Flomax] 0.4 mg capsule 0.4 mg PO DAILY Qty: 14 0RF Rx Instructions: may stop after passage of ston Zyrtec 10 MG capsule 10 mg PO DAILY PRN oxycodone 5 mg tablet 5 mg PO QID PRN (Reason: pain) Qty: 7 0RF atomoxetine [Strattera] 80 mg Capsule 80 mg PO DAILY lidocaine [Lidoderm] 5 % adhesive patch,medicated 1 patch topical DAILY Qty: 15 0RF Rx Instructions: leave on most painful area for up to 12 hrs, use no more than one patch per 24 hour period ketorolac 10 mg tablet 10 mg PO QID PRN Label Comments: TAKE ONE TABLET BY MOUTH FOUR TIMES A DAY NEEDED FOR PAIN FOR FIVE DAYS ondansetron 4 mg Tablet,Disintegrating 4 mg PO TID PRN guanfacine 1 mg tablet 1 mg PO BID Label Comments: START WITH 1/2 TAB TWICE DAILY, THEN AFTER 1 WEEK INCREASE IF NO LOW BP Discharge Instructions Instructions: Kidney Stones (ED) Additional Instructions: CT is 7.5 mm stone in the distal ureter on the right. Please call the urology office Wednesday morning and let them of your visit in the ER. Follow up with Urology/ primary care provider in 3-5 days. Return to ED sooner if any worsening or concerns. Increase oral fluids. Please take Tylenol or Ibuprofen with food every 4-6 hours as needed for pain and swelling. Referrals: Jignesh Montoya MD [ [facility] STAFF PHYSICIAN] - 3 days Roxann Mosher [Primary Care Provider] - Medical Decision Making 47-year-old female presents to the ER with chief complaint of right flank pain. Patient has a known kidney stone which he is scheduled to have surgically removed on of next week. He reports that he began running fever of 101 today and had worsening pain over the last few days. He has been taking Flomax Toradol oxycodone Zofran with little to no relief. He reports that the pain has moved from his right flank to his right groin. Work-up ordered including CBC, CMP, urinalysis, lactate CT abdomen pelvis. CBC shows no leukocytosis, lactate 1.4, creatinine slightly elevated at 2.2 GFR 37.41 BUN is 16, glucose 122 urinalysis shows no leukocytes no nitrites. CT shows a 7.5 mm distal right ureteral stone. Discussed results with patient who verbalized understanding. I did instruct him to call urology Wednesday morning. Verbalized understanding. I did give him some additional Toradol, Zofran and was given 4 tablets of oxycodone to go. Patient appears much more comfortable and reports feeling much better after the medications administered here. This text was generated using [employer] system, please disregard any oddities of phrase or misspellings. Medical Records Medical records reviewed: Yes I reviewed the patient's medical records. Imaging Data Radiologic Study: Imaging: CT Scan Radiologist's impression: CT RENAL COLIC WO 06/14/2022 10:49 PM FINDINGS: Lungs: Mild atelectasis in the lung bases. Heart: Heart size normal. Mediastinal space: Prior fundoplication. Distal esophagus unremarkable. Stomach otherwise unremarkable. Liver: Normal contour. No mass lesions. No intrahepatic biliary ductal dilatation. Gallbladder and bile ducts: Normal. No calcified stones. No ductal dilation. Pancreas: Normal. No inflammatory changes or ductal dilation. Spleen: Normal. No splenomegaly. Adrenal glands: Normal. No adrenal mass. Kidneys and ureters: Moderate right hydronephrosis and hydroureter with a distal right ureteral stone measuring up to 7.5 mm in size, located about 6 cm proximal to the UVJ. Moderate right perinephric and periureteral stranding. Punctate 1.5 mm nonobstructive left renal stone. Stomach and bowel: The small bowel is nondilated with no gross abnormality. No acute colonic abnormalities. Appendix: The appendix is normal in caliber and demonstrates no evidence of appendicitis. Intraperitoneal space: Small volume intrapelvic free fluid measuring simple fluid density. No free air. Vasculature: No acute process. No abdominal aortic aneurysm. Lymph nodes: No adenopathy. Urinary bladder: Unremarkable as visualized. Reproductive: Unremarkable as visualized. Bones/joints: No acute osseous abnormalities. Mild- moderate disc degenerative changes L5-S1. Soft tissues: Small fatty umbilical hernia and small fatty left inguinal hernia. No evidence of associated bowel herniation or strangulation. IMPRESSION: 1. There is a 7.5 mm distal right ureteral stone with moderate right hydronephrosis and hydroureter. 2. There is a punctate 1.5 nonobstructive left renal stone. 3. There is small volume intrapelvic simple free fluid. Source uncertain. No free air. 4. Additional nonemergent findings detailed above. Lab Data Lab results reviewed: Yes I reviewed the patient's lab results. Labs: Laboratory Tests Range/Units 07/17/22 07/17/22 07/17/22 18:42 18:58 18:58 WBC (4.4-10.8) 10^3/uL RBC (4.36-5.78) 10^6/uL Hgb (13.5-17.5) g/dL Hct (40.0-50.0) % MCV (80-95) fL MCH (27.0-33.0) pg MCHC (32.0-36.0) % RDW (11.8-14.1) % Plt Count (130-400) 10^3/uL MPV (8.0-11.0) fL Immature Gran % Neutrophils % Lymphocytes % Monocytes % Eosinophils % Basophils % Nucleated RBC % (0.0-0.3) % Absolute Neutrophils (1.2-6.7) 10^3/uL Absolute Lymphocytes (1.2-3.4) 10^3/uL Absolute Monocytes (0.1-0.8) 10^3/uL Absolute Eosinophils (0.0-0.7) 10^3/uL Absolute Basophils (0.0-0.2) 10^3/uL VBG Lactate (0.6-1.4) mmol/L 1.4 Sodium (136-145) mmol/L 136 Potassium (3.5-5.1) mmol/L 3.6 Chloride (98-107) mmol/L 100 Carbon Dioxide (21.0-32.0) mmol/L 30.5 Anion Gap (3-11) mmol/L 5.5 BUN (7-18) mg/dL 16 Creatinine (0.70-1.30) mg/dL 2.2 H Est GFR (CKD-EPI 2020) (mL/min/1.73m2) 37.41 Glucose (74-106) mg/dL 122 H Calcium (8.5-10.1) mg/dL 9.1 Total Bilirubin (0.2-1.0) mg/dL 0.7 AST (15-37) U/L 15 ALT (16-63) U/L 30 Alkaline Phosphatase (46-116) U/L 77 Total Protein (6.4-8.2) g/dL 7.6 Albumin (3.4-5.0) g/dL 3.9 Urine Color (Yellow) Yellow Urine Clarity (Clear) Clear Urine pH (5-8) 6.5 Ur Specific [place] (1.005-1.025) 1.015 Urine Protein (Negative) mg/dL Negative Urine Ketones (Negative) mg/dL Negative Urine Blood (Negative) Negative Urine Nitrite (Negative) Negative Urine Bilirubin (Negative) Negative Urine Urobilinogen (Up TO 0.2) EU/dL 0.2 Ur Leukocyte Esterase (Negative) Negative Urine Glucose (Negative) mg/dL 100 Range/Units 07/17/22 18:58 WBC (4.4-10.8) 10^3/uL 8.93 RBC (4.36-5.78) 10^6/uL 4.92 Hgb (13.5-17.5) g/dL 15.3 Hct (40.0-50.0) % 44.1 MCV (80-95) fL 90 MCH (27.0-33.0) pg 31.1 MCHC (32.0-36.0) % 34.7 RDW (11.8-14.1) % 11.9 Plt Count (130-400) 10^3/uL 160 MPV (8.0-11.0) fL 8.9 Immature Gran % 0.2 Neutrophils % 76.6 Lymphocytes % 11.2 Monocytes % 10.2 Eosinophils % 1.6 Basophils % 0.2 Nucleated RBC % (0.0-0.3) % 0.0 Absolute Neutrophils (1.2-6.7) 10^3/uL 6.84 H Absolute Lymphocytes (1.2-3.4) 10^3/uL 1.00 L Absolute Monocytes (0.1-0.8) 10^3/uL 0.91 H Absolute Eosinophils (0.0-0.7) 10^3/uL 0.14 Absolute Basophils (0.0-0.2) 10^3/uL 0.02 VBG Lactate (0.6-1.4) mmol/L Sodium (136-145) mmol/L Potassium (3.5-5.1) mmol/L Chloride (98-107) mmol/L Carbon Dioxide (21.0-32.0) mmol/L Anion Gap (3-11) mmol/L BUN (7-18) mg/dL Creatinine (0.70-1.30) mg/dL Est GFR (CKD-EPI 2020) (mL/min/1.73m2) Glucose (74-106) mg/dL Calcium (8.5-10.1) mg/dL Total Bilirubin (0.2-1.0) mg/dL AST (15-37) U/L ALT (16-63) U/L Alkaline Phosphatase (46-116) U/L Total Protein (6.4-8.2) g/dL Albumin (3.4-5.0) g/dL Urine Color (Yellow) Urine Clarity (Clear) Urine pH (5-8) Ur Specific [place] (1.005-1.025) Urine Protein (Negative) mg/dL Urine Ketones (Negative) mg/dL Urine Blood (Negative) Urine Nitrite (Negative) Urine Bilirubin (Negative) Urine Urobilinogen (Up TO 0.2) EU/dL Ur Leukocyte Esterase (Negative) Urine Glucose (Negative) mg/dL Sign Out No HPI General Mode of arrival: ambulatory . Date/Time Provider Initiated Documentation: 07/17/22 18:36 . Limitations to Documentation: no limitations . Information obtained by: patient, RN notes reviewed and old records reviewed . HPI Narrative: 47-year-old female presents to the ER with chief complaint of right flank pain. Patient has a known kidney stone which he is scheduled to have surgically removed on of next week. He reports that he began running fever of 101 today and had worsening pain over the last few days. He has been taking Flomax Toradol oxycodone Zofran with little to no relief. He reports that the pain has moved from his right flank to his right groin. Related Data Home Medications Medication Instructions Recorded Confirmed cetirizine 10 mg capsule (Zyrtec) 10 mg PO DAILY PRN 12/14/15 07/17/22 atomoxetine 80 mg capsule 80 mg PO DAILY 05/05/21 07/17/22 (Strattera) lidocaine 5 % topical patch 1 patch topical DAILY #15 ea 05/05/21 07/17/22 (Lidoderm) oxycodone 5 mg tablet 5 mg PO QID PRN pain #7 tabs 06/15/22 07/17/22 tamsulosin 0.4 mg capsule (Flomax) 0.4 mg PO DAILY #14 caps 07/10/22 07/17/22 guanfacine 1 mg tablet 1 mg PO BID 07/17/22 07/17/22 ketorolac 10 mg tablet 10 mg PO QID PRN 07/17/22 07/17/22 ketorolac 10 mg tablet 10 mg PO TID PRN pain 5 days #15 07/17/22 tabs ondansetron 4 mg disintegrating 4 mg PO Q8H PRN 5 days #15 tabs 07/17/22 tablet ondansetron 4 mg disintegrating 4 mg PO TID PRN 07/17/22 07/17/22 tablet Previous Rx's Medication Instructions Recorded lidocaine 5 % topical patch 1 patch topical DAILY #15 ea 05/05/21 (Lidoderm) oxycodone 5 mg tablet 5 mg PO QID PRN pain #7 tabs 06/15/22 tamsulosin 0.4 mg capsule (Flomax) 0.4 mg PO DAILY #14 caps 07/10/22 ketorolac 10 mg tablet 10 mg PO TID PRN pain 5 days #15 07/17/22 tabs ondansetron 4 mg disintegrating 4 mg PO Q8H PRN 5 days #15 tabs 07/17/22 tablet Allergies Allergy/AdvReac Type Severity Reaction Status Date / Time apples Allergy Intermediate throat Uncoded 07/17/22 18:32 itching white birch pollen Allergy Intermediate Uncoded 07/17/22 18:32 General Stated Complaint: Urinary RONDA: 3 Review of Systems All systems reviewed & are unremarkable except as noted in HPI and below Constitutional Constitutional: Reports fever(s) Gastrointestinal Gastrointestinal: Denies diarrhea, Reports nausea and Denies vomiting Genitourinary Genitourinary: Reports as per HPI and Reports flank pain PFSH All Active Problems (Updated 07/17/22 @ 20:42 by Lillian Mcqueen NP) Right ureteral stone (Acute) Abdominal pain (Acute) Back pain (Acute) Medical History ADHD Surgical History History of Pj fundoplication Social History Smoking/Tobacco Use Status: Never Smoking risk assessment performed?: Yes Alcohol Intake: current Alcohol Intake frequency: holidays/special occasions only Drug use: Never Substance use type: does not use Do you feel safe at home: Yes Do you feel safe in your relationship?: Yes Exam Narrative Exam Narrative: Constitutional: Alert and oriented x3. Appears stated age. Normal body habitus. Head: Normocephalic, no trauma. Eyes: Pupils PERRL, Red reflex noted, EOM's intact. Eyelids symmetrical without lesions, discharge, or swelling. ENT: Bilateral TM's WNL, External ear normal to inspection, no mastoid TTP, swelling, or erythema, Nasal turbinates WNL, no nasal discharge. Normal dentition, Posterior pharynx WNL, no exudate. Chest: RRR, Normal S1, S2, distal pulses intact. Resp: Lungs clear to auscultation bilaterally, no wheezes, rales, or rhonchi. Abdomen: Soft, non-distended, Normoactive bowel sounds all 4 quads. Tender with palpation right lower quadrant. Musculoskeletal: Normal gait, 5/5 strength to all four extremities. Skin: No suspicious rashes or lesions. Capillary refill less than 2 sec. Neurologic: Cranial nerves II-XII intact. Alert and oriented x 3. Motor: No deficits noted. Sensory: Intact bilaterally all 4 extremities. Reflexes: DTR's intact bilaterally.. Hematologic/Lymphatic: No ecchymosis, no lymphadenopathy. Course Vital Signs Vital signs: Vital Signs Temperature 37 C 07/17/22 18:28 Pulse 96 H 07/17/22 18:28 Respiratory Rate 18 07/17/22 18:28 Blood Pressure 145/87 H 07/17/22 18:28 Pulse Oximetry 100 07/17/22 18:28 Temperature 37 C 07/17/22 18:28 Temperature Source Skin 07/17/22 18:28 Pulse 96 H 07/17/22 18:28 Respiratory Rate 18 07/17/22 18:28 Respiratory Effort 07/17/22 18:35 Blood Pressure 145/87 H 07/17/22 18:28 Pulse Oximetry 100 07/17/22 18:28 Oxygen Delivery Method Room Air 07/17/22 18:28 Oxygen Flow Rate 0 07/17/22 18:28 Pain Level 8 07/17/22 18:28 Lab/Test Results Lab/Test Results: Laboratory Tests Range/Units 07/17/22 18:42 Urine Color (Yellow) Yellow Urine Clarity (Clear) Clear Urine pH (5-8) 6.5 Ur Specific [place] (1.005-1.025) 1.015 Urine Protein (Negative) mg/dL Negative Urine Ketones (Negative) mg/dL Negative Urine Blood (Negative) Negative Urine Nitrite (Negative) Negative Urine Bilirubin (Negative) Negative Urine Urobilinogen (Up TO 0.2) EU/dL 0.2 Ur Leukocyte Esterase (Negative) Negative Urine Glucose (Negative) mg/dL 100
[2022-07-17 19:03] LABS: Lactate 1.4 mmol/L (0.6-1.4)
[2022-07-17 19:04] LABS: Abs Immature Grans 0.02 10^3/uL (0.0-0.06); Absolute Basophil Count 0.02 10^3/uL (0.0-0.2); Absolute Eosinophil Count 0.14 10^3/uL (0.0-0.7); Absolute Monocyte Count 0.91 10^3/uL (0.1-0.8); Absolute Neutrophil Count 6.84 10^3/uL (1.2-6.7); Basophils % 0.2; Eosinophils % 1.6; HCT 44.1 % (40.0-50.0); HGB 15.3 g/dL (13.5-17.5); Immature Grans % 0.2; Lymphocytes % 11.2; MCH 31.1 pg (27.0-33.0); MCHC 34.7 % (32.0-36.0); MCV 90 fL (80-95); MPV 8.9 fL (8.0-11.0); Monocytes % 10.2; Neutrophils % 76.6; Platelet Count 160 10^3/uL (130-400); RBC 4.92 10^6/uL (4.36-5.78); RDW 11.9 % (11.8-14.1); RDW-SD 38.6 fL; WBC 8.93 10^3/uL (4.4-10.8)
[2022-07-17] MEDS: HYDROmorphone 2 MG/ML SYR 0.5 MG IVP (19:05)
[2022-07-17] MEDS: Ondansetron 4 MG/2 ML VIAL IVP (19:06)
[2022-07-17 19:20] LABS: ALT 30 U/L (16-63); AST 15 U/L (15-37); Albumin 3.9 g/dL (3.4-5.0); Alkaline Phosphatase 77 U/L (46-116); Anion Gap 5.5 mmol/L (3-11); BUN 16 mg/dL (7-18); Bilirubin, Total 0.7 mg/dL (0.2-1.0); CO2 30.5 mmol/L (21.0-32.0); CREATININE 2.2 mg/dL (0.70-1.30); Calcium 9.1 mg/dL (8.5-10.1); Chloride 100 mmol/L (98-107); Estimated GFR 37.41 (mL/min/1.73m2); Glucose 122 mg/dL (74-106); Potassium 3.6 mmol/L (3.5-5.1); Sodium 136 mmol/L (136-145); Total Protein 7.6 g/dL (6.4-8.2)
--- NOTE | 2022-07-17 20:24 | DI.VRAD_ITS ---
PROCEDURE INFORMATION: Exam: CT Abdomen And Pelvis Without Contrast Exam date and time: 07/17/2022 7:47 PM Age: 41 years old Clinical indication: Other: HX of right kidney stone, rlq pain, fever TECHNIQUE: Imaging protocol: Computed tomography of the abdomen and pelvis without contrast. COMPARISON: CT RENAL COLIC WO 06/14/2022 10:49 PM FINDINGS: Lungs: Mild atelectasis in the lung bases. Heart: Heart size normal. Mediastinal space: Prior fundoplication. Distal esophagus unremarkable. Stomach otherwise unremarkable. Liver: Normal contour. No mass lesions. No intrahepatic biliary ductal dilatation. Gallbladder and bile ducts: Normal. No calcified stones. No ductal dilation. Pancreas: Normal. No inflammatory changes or ductal dilation. Spleen: Normal. No splenomegaly. Adrenal glands: Normal. No adrenal mass. Kidneys and ureters: Moderate right hydronephrosis and hydroureter with a distal right ureteral stone measuring up to 7.5 mm in size, located about 6 cm proximal to the UVJ. Moderate right perinephric and periureteral stranding. Punctate 1.5 mm nonobstructive left renal stone. Stomach and bowel: The small bowel is nondilated with no gross abnormality. No acute colonic abnormalities. Appendix: The appendix is normal in caliber and demonstrates no evidence of appendicitis. Intraperitoneal space: Small volume intrapelvic free fluid measuring simple fluid density. No free air. Vasculature: No acute process. No abdominal aortic aneurysm. Lymph nodes: No adenopathy. Urinary bladder: Unremarkable as visualized. Reproductive: Unremarkable as visualized. Bones/joints: No acute osseous abnormalities. Mild-moderate disc degenerative changes L5-S1. Soft tissues: Small fatty umbilical hernia and small fatty left inguinal hernia. No evidence of associated bowel herniation or strangulation. IMPRESSION: 1. There is a 7.5 mm distal right ureteral stone with moderate right hydronephrosis and hydroureter. 2. There is a punctate 1.5 nonobstructive left renal stone. 3. There is small volume intrapelvic simple free fluid. Source uncertain. No free air. 4. Additional nonemergent findings detailed above. Dictated and Authenticated by: Malik Bravo MD. Ordering:TORSTEN Snyder MD
[2022-07-17] MEDS: Ondansetron O.D.T. 4 MG TABEF, 3 TABS/BTL PO (20:48)
== END 2022-07-17 20:49 | disposition home or self-care (01) ==
PROVIDERS: Emergency Provider Registered Nurse Emergency; PCP Family Medicine
DX: N13.2 Hydronephrosis with renal and ureteral calculous obstruction (principal); R79.89 Other specified abnormal findings of blood chemistry
CPT/HCPCS: 80053; 96374; 96375; 99284; 74176; 81003; 83605; 85025; J1170; J2405; J3490

== ENCOUNTER 2022-07-21 07:03 | Day surgery (SDC) | payer OTHER, SELFPAY ==
--- NOTE | 2022-07-21 07:11 | W.PM.HP.N ---
Date of service: 07/21/22 Time of Service: 08:09 Assessment and Plan Assessment and plan (1) Right ureteral stone: Status: Acute Assessment and plan: Will plan for cystoscopy, right retrograde pyelogram, right semirigid ureteroscopy with holmium laser litotripsy and extraction of stone fragments. History of Present Illness History of Present Illness Chief Complaint: Right ureteral stone Narrative: This is a 41-year-old gentleman who was initially seen with right renal colic. At that time, he had a small right distal ureteral stone and a nonobstructing stone up in the kidney. He was able to pass the distal ureteral stone and we had made plans to electively treat the nonobstructing stone on the right. In the interim, he developed renal colic again and the previously nonobstructing stone was found to have migrated down to the right distal ureter. His symptoms have persisted in spite of conservative management. He has pain and a sensation of needing to void in spite of only small volumes being present. He presents for stone manipulation. Review of Systems Narrative: No fevers or chills Seasonal allergies. No vision change or dysphasia No diabetes or thyroid dysfunction No shortness of breath, cough or hemoptysis No chest pain or palpitations No hepatitis, ulcers, jaundice, diarrhea or constipation ADHD. No seizures or peripheral neuropathy No bleeding disorders or anemia No gout or arthralgia PFSH All Active Problems Abdominal pain (Acute) Back pain (Acute) Right ureteral stone (Acute) Medical History ADHD Back problem JEANNIE on CPAP Surgical History (Updated 07/21/22 @ 07:22 by Daphne Daily RN) History of colonoscopy History of esophagogastroduodenoscopy (EGD) History of Pj fundoplication Family History (Updated 07/20/22 @ 14:08 by Daphne Daily RN) Other Cancer Diabetes Social History Smoking/Tobacco Use Status: Never Smoking risk assessment performed?: Yes Alcohol Intake: current Alcohol Intake frequency: holidays/special occasions only Drug use: Never Substance use type: does not use Do you feel safe at home: Yes Do you feel safe in your relationship?: Yes Meds Allergies and Home Medications Allergies Allergy/AdvReac Type Severity Reaction Status Date / Time apples Allergy Intermediate throat Uncoded 07/21/22 07:17 itching white birch pollen Allergy Intermediate Uncoded 07/21/22 07:17 Home Medications Medication Instructions Recorded Confirmed Type cetirizine 10 mg capsule (Zyrtec) 10 mg PO DAILY PRN 12/14/15 07/21/22 History atomoxetine 80 mg capsule 80 mg PO DAILY 05/05/21 07/21/22 History (Strattera) lidocaine 5 % topical patch 1 patch topical DAILY #15 ea 05/05/21 07/17/22 Rx (Lidoderm) oxycodone 5 mg tablet 5 mg PO QID PRN pain #7 tabs 06/15/22 07/21/22 Rx tamsulosin 0.4 mg capsule (Flomax) 0.4 mg PO DAILY #14 caps 07/10/22 07/21/22 Rx guanfacine 1 mg tablet 1 mg PO BID 07/17/22 07/21/22 History ketorolac 10 mg tablet 10 mg PO QID PRN 07/17/22 07/21/22 History ketorolac 10 mg tablet 10 mg PO TID PRN pain 5 days #15 07/17/22 Rx tabs ondansetron 4 mg disintegrating 4 mg PO Q8H PRN 5 days #15 tabs 07/17/22 07/21/22 Rx tablet ondansetron 4 mg disintegrating 4 mg PO TID PRN 07/17/22 07/17/22 History tablet Exam Const General: cooperative Neck Neck: supple Resp Effort & Inspection: normal respiratory effort Auscultation: clear to auscultation bilaterally Cardio Rate: regular rate Rhythm: regular rhythm GI Palpation: soft Neuro General: patient alert, patient awake and patient oriented x3
[2022-07-21 07:22] VITALS: BP 135/95; PULSE 93; RESP 18; TEMP 36.2; O2SAT 97
[2022-07-21] MEDS: Lactated Ringers 1,000 ML 80 ML IV (07:48)
--- NOTE | 2022-07-21 08:27 | ANES.PREOP_ITS ---
General Info Date of Service Date Performed: 07/21/22 Height: 5 ft 10 in Weight: 85.275 kg Body Mass Index (BMI): 26.9 Surgical Procedure: Operation Date: 07/21/22 08:10 Proposed Procedure Side Surgeon p Cystoscopy/Laser/Retrograde/Ureteroscopy Right Jignesh Montoya MD Meds Allergies and Home Medications Allergies Allergy/AdvReac Type Severity Reaction Status Date / Time apples Allergy Intermediate throat Uncoded 07/21/22 07:17 itching white birch pollen Allergy Intermediate Uncoded 07/21/22 07:17 Home Medication Medication Instructions Recorded cetirizine 10 mg capsule (Zyrtec) 10 mg PO DAILY PRN 12/14/15 atomoxetine 80 mg capsule 80 mg PO DAILY 05/05/21 (Strattera) lidocaine 5 % topical patch 1 patch topical DAILY #15 ea 05/05/21 (Lidoderm) oxycodone 5 mg tablet 5 mg PO QID PRN pain #7 tabs 06/15/22 tamsulosin 0.4 mg capsule (Flomax) 0.4 mg PO DAILY #14 caps 07/10/22 guanfacine 1 mg tablet 1 mg PO BID 07/17/22 ketorolac 10 mg tablet 10 mg PO QID PRN 07/17/22 ketorolac 10 mg tablet 10 mg PO TID PRN pain 5 days #15 07/17/22 tabs ondansetron 4 mg disintegrating 4 mg PO Q8H PRN 5 days #15 tabs 07/17/22 tablet ondansetron 4 mg disintegrating 4 mg PO TID PRN 07/17/22 tablet Current Visit Medications: Current Medications Generic Name Dose Route Start Last Admin Trade Name Freq PRN Reason Stop Dose Admin Ringer's Solution 1,000 mls @ 80 mls/hr 07/21/22 06:00 07/21/22 07:48 IV 07/21/22 23:59 80 mls/hr INFUSION MARQUIS Administration Cefazolin Sodium/Dextrose 2 gm in 50 mls @ 100 mls/hr 07/21/22 06:00 Ancef Duplex IVPB 07/21/22 23:59 PREOP MARQUIS IV Miscellaneous Supplies 1 each 07/21/22 06:00 Iv Access IV 07/21/22 23:59 DIRECTED MARQUIS Sodium Chloride 0 ml 07/21/22 06:00 Normal Saline Flush 10 Ml Syr IV 07/21/22 23:59 PRN PRN Sodium Chloride 0 ml 07/21/22 06:00 Normal Saline 10 Ml Vial IJ 07/21/22 23:59 DIRECTED PRN Sterile Water 0 ml 07/21/22 06:00 Water,Injection,Sterile 10 Ml Vial IJ 07/21/22 23:59 DIRECTED PRN PFSH Active Problems Active Problems: Problem Status Onset Code Abdominal pain R10.9 Back pain M54.9 Right ureteral stone N20.1 Medical History Medical History ADHD Back problem JEANNIE on CPAP Surgical History Surgical History (Updated 07/21/22 @ 07:22 by Daphne Daily RN) History of colonoscopy History of esophagogastroduodenoscopy (EGD) History of Pj fundoplication Tobacco Smoking/Tobacco Use Status: Never Alcohol Alcohol Intake: current Alcohol intake frequency: holidays/special occasions only Substance Use Substance use: Never Substance use type: does not use Vital Signs and Lab Results Vital Signs Most Recent Vital Signs in EMR: Most Recent Vital Signs Temp Pulse Resp BP Pulse Ox 36.2 C L 93 H 18 135/95 H 97 07/21/22 07:22 07/21/22 07:22 07/21/22 07:22 07/21/22 07:22 07/21/22 07:22 Lab Results Blood Type / Crossmatch: No Data to Display Complete Blood Count: White Blood Count 8.93 10^3/uL (4.4-10.8) 07/17/22 18:58 Red Blood Count 4.92 10^6/uL (4.36-5.78) 07/17/22 18:58 Hemoglobin 15.3 g/dL (13.5-17.5) 07/17/22 18:58 Hematocrit 44.1 % (40.0-50.0) 07/17/22 18:58 Platelet Count 160 10^3/uL (130-400) 07/17/22 18:58 Venous Blood Lactate 1.4 mmol/L (0.6-1.4) 07/17/22 18:58 Complete Metabolic Panel: Sodium 136 mmol/L (136-145) 07/17/22 18:58 Potassium 3.6 mmol/L (3.5-5.1) 07/17/22 18:58 Chloride 100 mmol/L (98-107) 07/17/22 18:58 Carbon Dioxide 30.5 mmol/L (21.0-32.0) 07/17/22 18:58 BUN 16 mg/dL (7-18) 07/17/22 18:58 Creatinine 2.2 mg/dL (0.70-1.30) H 07/17/22 18:58 Est GFR (CKD-EPI 2020) 37.41 (mL/min/1.73m2) 07/17/22 18:58 Calcium 9.1 mg/dL (8.5-10.1) 07/17/22 18:58 Albumin 3.9 g/dL (3.4-5.0) 07/17/22 18:58 Glucose 122 mg/dL (74-106) H 07/17/22 18:58 Liver Function Panel: Alanine Aminotransferase (ALT/SGPT) 30 U/L (16-63) 07/17/22 18: 58 Aspartate Amino Transf (AST/SGOT) 15 U/L (15-37) 07/17/22 18:58 Coagulation Panel: No Data to Display Cardiac Panel: No Data to Display Arterial Blood Gas: No Data to Display Venous Blood Gas: No Data to Display Pancreas Panel: No Data to Display Thyroid Panel: No Data to Display Infectious Disease: No Data to Display Blood Cultures: No Data to Display Toxicology Panel: No Data to Display Anesthesia Assessment and Plan Anesthesia History Personal History: No History of Anesthesia Complications Family History: No Family History of Anesthesia Complications Exercise Tolerance Exercise Tolerance: Metabolic Equivalents>4 Pertinent Negatives Pertinent Negatives: No Symptoms of GERD (Well controlled after Pj Fundoplication), No Major Cardiovascular Symptoms or Complaints and No Major Pulmonary Symptoms or Complaints (JEANNIE uses CPAP every night ) Cardiac & Pulmonary Exam Cardiac Exam: Normal S1/S2 Heart Sounds Pulmonary Exam: Clear Bilateral Breath Sounds Implantable Cardiac Device Does patient have a Pacemaker or an ICD?: No Airway Exam Known Difficult Airway: No Mallampati Class: 1 Mouth Opening: Normal (> 3cm) Thyromental Distance: Greater than 3 cm Neck Range of Motion: Full ROM Neck Circumference: Normal Teeth Condition: Normal Dentition ASA Classification ASA Score: ASA 2 Emergency Case?: No NPO Status NPO Status: NPO Clears >2 hours, Solids >8 hours Anesthesia Plan Resuscitation Status: Full Code Anesthesia Technique: General Anesthesia Airway Planned: Natural Airway Monitors Used: Standard Monitors
[2022-07-21 08:30] VITALS: BMI 26.9
--- NOTE | 2022-07-21 08:45 | DI.RAD_ITS ---
Exam(s) XR RETROGRADE IN OR EXAM: XR RETROGRADE IN OR CLINICAL HISTORY: retrograde ureteroscopy/cystoscopy/laser TECHNIQUE: 2D and realtime digital imaging was performed. CONTRAST MATERIAL: Refer to procedure report. COMPARISON: No exams were available for comparison FINDINGS: Fluoroscopy was provided for Dr. Montoya during the performance of a retrograde evaluation of the anup l collecting system. Please refer to the procedure report for complete details. Ka,r=14.3 mGy IMPRESSION: RADIATION DOSE DELIVERED:
[2022-07-21] MEDS: ceFAZolin 2 GM/50 ML BAG IVPB (09:00)
[2022-07-21] MEDS: Omnipaque 300 MG/ML 50 ML BTL (09:10)
[2022-07-21] MEDS: Lidocaine 2% Jelly 6 ML SYR (09:10)
--- NOTE | 2022-07-21 09:43 | W.PM.DSUDISC ---
Date of service: 07/21/22 Time of Service: 09:43 Discharge Plan Disposition Patient Disposition: HOME Condition: Good Discharge Details Reason For Visit: ureteroscopy Attending Provider: Jignesh Montoya Primary Care Provider: Roxann Mosher Home Meds and New Rx's Prescriptions: No Action tamsulosin [Flomax] 0.4 mg capsule 0.4 mg PO DAILY Qty: 14 0RF Rx Instructions: may stop after passage of ston Zyrtec 10 MG capsule 10 mg PO DAILY PRN oxycodone 5 mg tablet 5 mg PO QID PRN (Reason: pain) Qty: 7 0RF atomoxetine [Strattera] 80 mg Capsule 80 mg PO DAILY lidocaine [Lidoderm] 5 % adhesive patch,medicated 1 patch topical DAILY Qty: 15 0RF Rx Instructions: leave on most painful area for up to 12 hrs, use no more than one patch per 24 hour period ketorolac 10 mg tablet 10 mg PO QID PRN Label Comments: TAKE ONE TABLET BY MOUTH FOUR TIMES A DAY NEEDED FOR PAIN FOR FIVE DAYS ondansetron 4 mg Tablet,Disintegrating 4 mg PO TID PRN guanfacine 1 mg tablet 1 mg PO BID Label Comments: START WITH 1/2 TAB TWICE DAILY, THEN AFTER 1 WEEK INCREASE IF NO LOW BP ketorolac 10 mg tablet 10 mg PO TID PRN (Reason: pain) 5 Days Qty: 15 0RF ondansetron 4 mg tablet,disintegrating 4 mg PO Q8H PRN5 Days Qty: 15 0RF Discharge Instructions Additional Instructions: no need to strain urine stent to be removed in 3 to 7 days - let my office know there is a string on stent - pt can either come into office to have stent removed or remove it himself at home followup appt @ 6 weeks with renal US Activity:: Activity as Tolerated Shower/Bathe:: 24 hours Activity:: Activity as Tolerated Equipment/Supplies:: No Equipment Needed Diet:: As Tolerated DS: Diagnosis Discharge Diagnosis (1) Right ureteral stone: Status: Acute
--- NOTE | 2022-07-21 09:46 | ROE_ITS ---
Date of service: 07/21/22 Time of Service: 09:46 Operative Note Operative Note DATE OF PROCEDURE: 07/21/22 PRE-OP DIAGNOSIS: right ureteral stone PROCEDURE: cystoscopy, right retrograde pyelogram, right ureteral dilation, right ureteroscopy with stone extraction, insert right ureteral stent SURGEON: Jignesh Montoya ANESTHESIA TYPE: General:No Airway Refer to Anesthesia Record ESTIMATED BLOOD LOSS: 10 PATHOLOGY: other (stone for chemical analysis) COMPLICATIONS: None Implants: 4.8 Nigerien by 22 to 30 cm right ureteral stent Indications: This is a 41-year-old gentleman who has a history of kidney stones. When I initially saw him, he had recently passed a small right ureteral stone but had a nonobstructing stone up in the right kidney. We made plans to address the n onobstructing stone electively. He then developed right renal colic and the nonobstructing stone had migrated down into the right distal ureter. The stone was causing hydronephrosis and symptoms. He is not benefited from conservative management. He presents for stone manipulation. Findings: Right distal ureteral stone Procedure Description: The patient was given preoperative IV antibiotics. He was brought to the operating room on 07/21/2022. His genitalia is prepped and draped. 2% Xylocaine jelly was instilled into the urethra to act as a local anesthetic. The 22 Nigerien rigid cystoscope was passed through the urethra into the bladder. The urethra and bladder were inspected with a 30 degree lens. The pendulous, bulbar and membranous urethra all appeared normal with no strictures. The prostatic urethra appeared normal as well. The bladder neck was entered and the bladder mucosa was inspected. No stone was seen within the lumen of the bladder. The right ureteral orifice was cannulated with a 5 Nigerien access catheter and a retrograde pyelogram was obtained by injecting Omnipaque through the access catheter under fluoroscopic guidance. A filling defect was outlined in the right distal ureter as expected. We then passed a guidewire through the access catheter and advanced the wire up the ureter. The access catheter was removed. We then dilated the distal ureter using a UroMax balloon. Once the ureter was dilated, we passed the semirigid ureteroscope through the urethra and into the bladder. The scope was maneuvered into the right ureteral orifice and advanced up to the level of the pelvic brim. A stone was visualized in that area. The stone was grasped in a Karol stone basket and removed in its entirety. We then replaced the access catheter and did a retrograde pyelogram. No extravasation of contrast was identified. I passed a 4.8 Nigerien variable length stent over the wire. The proximal end of the stent was positioned in the renal pelvis and the distal end was positioned in the bladder. The positioning was confirmed both fluoroscopically and cystoscopically. The safety string was left on the stent and brought through the patient's urethra. The safety string was anchored to the dorsum of the penis using a Steri-Strip. He tolerated this procedure with no complications.
[2022-07-21 09:53] VITALS: BP 138/91; PULSE 106; RESP 16; TEMP 36.3; O2SAT 93
--- NOTE | 2022-07-21 09:59 | W.ANESPOSTOP ---
Postoperative Evaluation Date, Time and Location Date Performed: 07/21/22 Time Performed: 09:58 Patient Location: Day Surgery Unit Vital Signs Most Recent Imported Vital Signs: Most Recent Vital Signs Temp Pulse Resp BP Pulse Ox 36.2 C L 93 H 18 135/95 H 97 07/21/22 07:22 07/21/22 07:22 07/21/22 07:22 07/21/22 07:22 07/21/22 07:22 Most Recent Manually Entered Vital Signs: Adult Blood Pressure: 138/91 Heart Rate: 102 Respirations: 14 Oxygen Saturation (%): 94 Temperature (C): 36.3 C Pain Score (0-10 Scale): 0 Pain Score Most Recent Pain Score: Most Recent Pain Score Pain Level 8 07/21/22 07:22 Assessment Mental Status: Awake (Alert & Oriented to Patient Baseline) Airway and Respiratory Function: Patent airway with normal (patient baseline) respiratory exam Cardiovascular Function: Hemodynamically Stable Hydration Status: Adequately Hydrated Nausea & Vomiting: No Nausea or Vomiting Pain: Pt. Denies Any Pain Peripheral Nerve Block: Patient did not receive a nerve block
[2022-07-21 10:00] VITALS: BP 138/91; PULSE 102; RESP 14; TEMPC 36.3; O2SAT 94
[2022-07-21] MEDS: Phenazopyridine 200 MG TAB PO (10:13)
[2022-07-21 10:28] VITALS: BP 132/96; PULSE 89; RESP 16; TEMP 36.3; O2SAT 97
[2022-07-23 15:53] LABS: Source: Right Kidney
== END 2022-07-21 11:15 | disposition home or self-care (01) ==
PROVIDERS: PCP Family Medicine; Visit Provider Urology
PROC: (CPT 52352; principal; 2022-07-21 08:00)
DX: N20.1 Calculus of ureter (principal); G47.33 Obstructive sleep apnea (adult) (pediatric)
CPT/HCPCS: 52352; 52332; 74420; 82365; J0690; J1100; J1885; J2250; J2405; Q9967

== ENCOUNTER 2023-05-18 00:29 | Emergency (ER) | payer OTHER, SELFPAY ==
--- NOTE | 2023-05-18 00:30 | DI.CT_ITS ---
Exam(s) CT ABDOMEN PELVIS WO EXAM: CT ABDOMEN PELVIS WO CLINICAL HISTORY: Bilateral flank pain, history of stones. TECHNIQUE: Imaging Protocol: Axial computed tomography images with coronal and sagittal reformatted images were created and reviewed. COMPARISON: CT CT RENAL COLIC WO from 07/17/2022 US US RENAL from 09/01/2022 FINDINGS: ABDOMEN: Lung Bases: Postsurgical changes are seen at the gastroesophageal junction. Liver: Normal density. No measurable mass. Gallbladder and biliary tract: No radiodense calculus or biliary ductal dilation. Pancreas: Normal density, no abnormal calcifications or inflammatory process. Spleen: Normal. Kidneys: Normal size, contour and axis.There is a nonobstructing 4 mm left lower pole calculus. Ther e is no hydronephrosis no masses seen. Adrenal glands: No mass is seen. Lymph nodes: Within normal limits. Abdominal Aorta: Abdominal portion non-dilated. Mild atherosclerosis. PELVIS: Bladder:There is diffuse thickening of the wall of the urinary bladder. Bowel: No obstruction or bowel wall thickening. Appendix is unremarkable. Peritoneal cavity: No ascites, collection or mesenteric inflammatory response. No free air. Reproductive organs: Unremarkable as visualized. Bones: Within normal limits. Soft Tissues: Within normal limits. IMPRESSION: 1. Left nephrolithiasis. No hydronephrosis. 2. Urinary bladder wall thickening. This may be due to underdistention. Cystitis cannot be excluded . Please correlate clinically. RADIATION DOSE DELIVERED: 854.55mGy.cm Total DLP DATA REPOSITORY: All CT scans at this facility are submitted to the National Radiology Data Registry (NRDR) Dose Index Registry (DIR) with the [employer] (ACR). RADIATION OPTIMIZATION: All CT scans at this facility use at least one of these dose optimization te chniques: automated exposure control; mA and/or kV adjustment per patient size (includes targeted exa ms where dose is matched to clinical indication); or iterative reconstruction.
[2023-05-18 00:35] VITALS: BP 161/114
[2023-05-18 00:36] VITALS: BP 193/128; PULSE 100; RESP 16; TEMP 36.4; O2SAT 99
[2023-05-18 00:46] VITALS: BP 152/112
[2023-05-18 01:11] LABS: Abs Immature Grans 0.02 10^3/uL (0.0-0.06); Absolute Basophil Count 0.05 10^3/uL (0.0-0.2); Absolute Eosinophil Count 0.39 10^3/uL (0.0-0.7); Absolute Lymphocyte Count 1.99 10^3/uL (1.2-3.4); Absolute Monocyte Count 0.69 10^3/uL (0.1-0.8); Absolute Neutrophil Count 4.46 10^3/uL (1.2-6.7); Basophils % 0.7; Eosinophils % 5.1; HGB 16.9 g/dL (13.5-17.5); Immature Grans % 0.3; Lymphocytes % 26.2; MCH 31.6 pg (27.0-33.0); MCHC 35.2 % (32.0-36.0); MCV 90 fL (80-95); MPV 9.3 fL (8.0-11.0); Monocytes % 9.1; Neutrophils % 58.6; Platelet Count 196 10^3/uL (130-400); RBC 5.35 10^6/uL (4.36-5.78); RDW 12.3 % (11.8-14.1); RDW-SD 40.2 fL
--- NOTE | 2023-05-18 01:14 | W.ED.GENAD ---
Discharge Plan Disposition Patient Disposition: Home Discharge Details Clinical Impression: Acute flank pain Primary Care Provider: Roxann Mosher ED Provider: Quoc Ventura Home Meds and New Rx's Prescriptions: No Action Zyrtec 10 MG capsule 10 mg PO DAILY PRN atomoxetine [Strattera] 80 mg Capsule 80 mg PO DAILY lidocaine [Lidoderm] 5 % adhesive patch,medicated 1 patch topical DAILY Qty: 15 0RF Rx Instructions: leave on most painful area for up to 12 hrs, use no more than one patch per 24 hour period guanfacine 1 mg tablet 1 mg PO BID Patient Comments: START WITH 1/2 TAB TWICE DAILY, THEN AFTER 1 WEEK INCREASE IF NO LOW BP Discharge Instructions Instructions: Flank Pain (ED) Additional Instructions: At this time thankfully your CAT scan does not show any evidence of kidney stone. Please take Tylenol or Motrin as needed for pain. If you notice any worsening of your symptoms, or any new symptoms such as vomiting, diarrhea, fever, chills, shortness of breath, chest pain, numbness, weakness, or fainting , please return immediately to the emergency department for reevaluation. Please follow up with your primary care provider as soon as possible for reassessment and reevaluation. As always, it was a pleasure participating in your medical care today. Do not hesitate to email me in regards to your search/path for medical school. Happy to help! [email or web address] Referrals: Roxann Mosher [Primary Care Provider] - Discharge Data Discharge Date/Time-TO BE ENTERED AT DEPARTURE: 05/18/23 04:24 Medical Decision Making This is a pleasant 42-year-old male with a past medical history of kidney stones who presents today for evaluation of bilateral flank pain. Symptoms have been present for the last 6 days. It started in his back, and has now radiated to his flanks bilaterally. He has also noticed associated cloudy urine. He does had blood in his urine. He denies any fever or chills. He did take some NSAIDs earlier this week, but has not taken any today. He states that the pain currently is mild. He denies any genital pain. He states that the pain feels somewhat similar to his previous kidney stones. No other complaints at this time. No other modifying factors. Physical exam demonstrates significant abdominal or CVA tenderness on palpation or percussion. No genital tenderness. Differential includes UTI, pyelonephritis, or kidney stone. Patient does not want anything for pain at this time. We will evaluate for these etiologies, monitor closely and reassess. CT scan negative for acute process. No evidence of obstructive uropathy. Laboratory work-up normal, urinalysis shows RBCs but no evidence of infection. Potential for passed stone. Patient otherwise feels well. He feels comfortable going home. Patient will be discharged. Discussed red flags for which to return. I have extensively reviewed the treatment plan and discharge instructions with the patient. I have addressed all patient concerns at this time. The patient was made aware of what symptoms to monitor for that would warrant a return to the emergency department. Discussed the plan with the patient, they demonstrate verbal understanding and agreement with our assessment and plan at this time. The documentation in this chart was dictated using [employer] dictation software. Please excuse any dictation errors. FINDINGS: Lower thorax: Bibasilar atelectasis/scarring. Status post Pj fundoplication. Liver: Normal. No mass. Gallbladder and bile ducts: Normal. No calcified stones. No ductal dilation. Pancreas: Normal. No ductal dilation. Spleen: Normal. No splenomegaly. Adrenal glands: Normal. No mass. Kidneys and ureters: Nonobstructing calculus in the left kidney. No hydronephrosis. No obstructing ureteral calculi. Stomach and bowel: No evidence of bowel obstruction. No mucosal thickening. Appendix: Normal appendix. Intraperitoneal space: Unremarkable. No free air. No significant fluid collection. Vasculature: Unremarkable. No abdominal aortic aneurysm. Lymph nodes: Unremarkable. No enlarged lymph nodes. Urinary bladder: Bladder wall thickening. Reproductive: Unremarkable as visualized. Bones/joints: Unremarkable. No acute fracture. Soft tissues: Unremarkable. IMPRESSION: 1. Left nephrolithiasis. No evidence of obstructive uropathy. 2. Bladder wall thickening. Correlate for cystitis. Thank you for allowing us to participate in the care of your patient. Dictated and Authenticated by: Oni Mujica MD 05/18/2023 4:00 AM Eastern Time ([place] & [place]) HPI General Date/Time Provider Initiated Documentation: 05/18/23 00:30. HPI Narrative: This is a pleasant 42-year-old male with a past medical history of kidney stones who presents today for evaluation of bilateral flank pain. Symptoms have been present for the last 6 days. It started in his back, and has now radiated to his flanks bilaterally. He has also noticed associated cloudy urine. He does had blood in his urine. He denies any fever or chills. He did take some NSAIDs earlier this week, but has not taken any today. He states that the pain currently is mild. He denies any genital pain. He states that the pain feels somewhat similar to his previous kidney stones. No other complaints at this time. No other modifying factors. Related Data Home Medications Medication Instructions Recorded Confirmed cetirizine 10 mg capsule (Zyrtec) 10 mg PO DAILY PRN 12/14/15 05/18/23 atomoxetine 80 mg capsule 80 mg PO DAILY 05/05/21 05/18/23 (Strattera) lidocaine 5 % topical patch 1 patch topical DAILY #15 ea 05/05/21 05/18/23 (Lidoderm) guanfacine 1 mg tablet 1 mg PO BID 07/17/22 05/18/23 Previous Rx's Medication Instructions Recorded lidocaine 5 % topical patch 1 patch topical DAILY #15 ea 05/05/21 (Lidoderm) Allergies Allergy/AdvReac Type Severity Reaction Status Date / Time apples Allergy Intermediate throat Uncoded 05/18/23 00:41 itching white birch pollen Allergy Intermediate Uncoded 05/18/23 00:41 General Stated Complaint: FlankPain RONDA: 3 Review of Systems All systems reviewed & are unremarkable except as noted in HPI and below PFSH All Active Problems (Updated 05/18/23 @ 04:03 by Quoc Ventura DO) Acute flank pain (Acute) Abdominal pain (Acute) Back pain (Acute) Medical History ADHD Back problem JEANNIE on CPAP Right distal ureteral calculus Surgical History History of colonoscopy History of esophagogastroduodenoscopy (EGD) History of Pj fundoplication Family History Other Cancer Diabetes Social History Smoking/Tobacco Use Status: Never Smoking risk assessment performed?: Yes Alcohol Intake: current Alcohol Intake frequency: holidays/special occasions only Drug use: Never Substance use type: does not use Do you feel safe at home: Yes Do you feel safe in your relationship?: Yes Exam Narrative Exam Narrative: 1.Const: Well-nourished, Well-developed, appearing stated age 2.Eyes: PERRL, no conjunctival injection, and symmetrical lids. 3.ENT: Atraumatic external nose and ears. Moist MM. Neck: Symmetric, trachea midline, No thyromegaly. 4.CVS: +S1/S2, No murmurs or gallops. Peripheral pulses 2+ and equal in all extremities. Brisk capillary refill in all extremities. 5.RESP: Unlabored respiratory effort. Clear to auscultation bilaterally. No wheezes rales or rhonchi 6.GI: Soft, Nontender/Nondistended, No hepatosplenomegaly. No guarding or rebound. No genital pain or tenderness 7.MSK: Normocephalic/Atraumatic, Extremities w/o deformity or ttp No cyanosis or clubbing, Normal movement of all extremities 8.Skin: Warm, Dry. No rashes or lesions. 9.Neuro: mud grinder II-XII grossly intact. Sensation grossly intact, no focal neurologic deficits. 10.Psych: (AAO) x3. Appropriate mood and affect Course Vital Signs Vital signs: Vital Signs Blood Pressure 161/114 H 05/18/23 00:35 Temperature 36.4 C L 05/18/23 00:36 Temperature Source Temporal Artery Scan 05/18/23 00:36 Pulse 100 H 05/18/23 00:36 Respiratory Rate 16 05/18/23 00:36 Respiratory Effort Normal, Non-Labored 05/18/23 00:43 Blood Pressure 152/112 H 05/18/23 00:46 Blood Pressure Position Sitting 05/18/23 00:36 Pulse Oximetry 99 05/18/23 00:36 Oxygen Delivery Method Room Air 05/18/23 00:36 Oxygen Flow Rate 0 05/18/23 00:36 Pain Level 5 05/18/23 00:36
[2023-05-18 01:22] LABS: Bilirubin Negative (Negative); Blood Small (Negative); Clarity Clear (Clear); Glucose Negative (Negative); Ketones Negative (Negative); Leukocyte Esterase Negative (Negative); Nitrite Negative (Negative); Specific Gravity 1.015 (1.005-1.025); pH 6.5 (5-8)
[2023-05-18 01:33] LABS: ALT 52 U/L (16-63); AST 25 U/L (15-37); Albumin 4.3 g/dL (3.4-5.0); Alkaline Phosphatase 81 U/L (46-116); Anion Gap 6.7 mmol/L (3-11); BUN 14 mg/dL (7-18); Bilirubin, Total 0.5 mg/dL (0.2-1.0); CO2 31.3 mmol/L (21.0-32.0); CREATININE 1.4 mg/dL (0.70-1.30); Calcium 9.5 mg/dL (8.5-10.1); Chloride 102 mmol/L (98-107); Estimated GFR 63.96 (mL/min/1.73m2); Glucose 103 mg/dL (74-106); Potassium 3.4 mmol/L (3.5-5.1); Sodium 140 mmol/L (136-145)
[2023-05-18 01:39] LABS: Bacteria Rare HPF (Negative); C & S Indicated? No; Crystals Negative HPF (Negative); Epithelial Cells Negative HPF (Negative); Mucus Negative (Negative); WBC 0-2 HPF (0-5)
--- NOTE | 2023-05-18 04:01 | DI.VRAD_ITS ---
PROCEDURE INFORMATION: Exam: CT Abdomen And Pelvis Without Contrast Exam date and time: 05/18/2023 1:11 AM Age: 42 years old Clinical indication: Prior surgery; Surgery date: 6+ months; Surgery type: Pj procedure; Patient HX: Bilateral flank pain, history of stones TECHNIQUE: Imaging protocol: Computed tomography of the abdomen and pelvis without contrast. Radiation optimization: All CT scans at this facility use at least one of these dose optimization techniques: automated exposure control; mA and/or kV adjustment per patient size (includes targeted exams where dose is matched to clinical indication); or iterative reconstruction. COMPARISON: CT ABDOMEN PELVIS W 05/05/2021 8:07 AM FINDINGS: Lower thorax: Bibasilar atelectasis/scarring. Status post Pj fundoplication. Liver: Normal. No mass. Gallbladder and bile ducts: Normal. No calcified stones. No ductal dilation. Pancreas: Normal. No ductal dilation. Spleen: Normal. No splenomegaly. Adrenal glands: Normal. No mass. Kidneys and ureters: Nonobstructing calculus in the left kidney. No hydronephrosis. No obstructing ureteral calculi. Stomach and bowel: No evidence of bowel obstruction. No mucosal thickening. Appendix: Normal appendix. Intraperitoneal space: Unremarkable. No free air. No significant fluid collection. Vasculature: Unremarkable. No abdominal aortic aneurysm. Lymph nodes: Unremarkable. No enlarged lymph nodes. Urinary bladder: Bladder wall thickening. Reproductive: Unremarkable as visualized. Bones/joints: Unremarkable. No acute fracture. Soft tissues: Unremarkable. IMPRESSION: 1. Left nephrolithiasis. No evidence of obstructive uropathy. 2. Bladder wall thickening. Correlate for cystitis. Dictated and Authenticated by: Oni Mujica MD. Ordering:DAE Kumari MD
[2023-05-18 04:18] VITALS: BP 148/97; PULSE 78; RESP 14; O2SAT 96
== END 2023-05-18 04:24 | disposition home or self-care (01) ==
PROVIDERS: Emergency Provider Student in an Organized Health Care Education/Training Program; PCP Family Medicine
DX: R10.9 Unspecified abdominal pain (principal); R31.9 Hematuria, unspecified; Z87.442 Personal history of urinary calculi
CPT/HCPCS: 80053; 99284; 74176; 81003; 81015; 85025

== ENCOUNTER 2023-08-27 09:02 | Day surgery (SDC) | payer OTHER, SELFPAY ==
--- NOTE | 2023-08-26 16:00 | W.PREOPHP ---
Assessment and Plan Assessment and plan (1) Bilateral inguinal hernia: Status: Acute Assessment and plan: We reviewed the plan for bilateral inguinal hernia repairs by way of an open approach today. I think he has a good understanding of the nature of the operation, what to expect in terms of recovery. History of Present Illness History of Present Illness Chief Complaint: Bilateral flank and groin to the Narrative: Nicholas is 42 years old. Sometime towards the end of the summer he began experiencing flank pain that was worse after standing. It radiated down towards his right groin, and the lateral aspect of his right thigh. In April, he began experiencing it more intensely, and was also appreciated on the left side. You underwent CAT scan of the abdomen and pelvis thinking that he may have had another episode of kidney stones. The CT scan was largely interpreted as normal, however, there is clearly evidence of bilateral inguinal hernias in retrospect. After discussing it with his primary care physician, he did also undergo an ultrasound of the right groin that did confirm the presence of at least a right inguinal hernia. He then met with Dr. Cunha in consultation for an inguinal hernia repair. Upon further questioning and examination, it was clear to the bilateral inguinal hernias here. Plans were made for an open operative repair, but because of some scheduling conflicts, Dr. Cunha is unable to perform the operation. In the interim, he has been in usual state of health. He does continue to have more frequent episodes of bilateral groin pain. As mentioned above, it is typically worse after long days of standing. He is some relief when he lies down. He denies any obstructive symptoms, or other signs or symptoms of incarceration or strangulation. [facility] All Active Problems (Updated 08/27/23 @ 10:22 by Asa Stapleton MD) Bilateral inguinal hernia (Acute) Bilateral direct inguinal hernia (Acute) Neuralgia neuritis, sciatic nerve (Acute) Abdominal pain (Acute) Back pain (Acute) Medical History Hx of headache tension type headaches Right inguinal hernia GERD (gastroesophageal reflux disease) Right distal ureteral calculus Back problem JEANNIE on CPAP ADHD inattentive type Surgical History History of colonoscopy History of esophagogastroduodenoscopy (EGD) History of Pj fundoplication Family History Other Cancer Diabetes Social History Smoking/Tobacco Use Status: Never Smoking risk assessment performed?: Yes Alcohol Intake: current Alcohol Intake frequency: holidays/special occasions only Drug use: Never Substance use type: does not use Housing: house Do you feel safe at home: Yes Do you feel safe in your relationship?: Yes Meds Allergies and Home Medications Allergies Allergy/AdvReac Type Severity Reaction Status Date / Time apples Allergy Intermediate throat Uncoded 08/27/23 09:22 itching white birch pollen Allergy Intermediate Uncoded 08/27/23 09:22 fluticasone propionate AdvReac Intermediate Epistaxis Uncoded 08/27/23 09:22 Home Medications Medication Instructions Recorded Confirmed Type lidocaine 5 % topical patch 1 patch topical DAILY #15 ea 05/05/21 08/27/23 Rx (Lidoderm) acetylcysteine 600 mg capsule (NAC) 600 mg PO BID 06/17/23 08/27/23 History cetirizine 10 mg capsule (Zyrtec) 10 mg PO DAILY PRN 06/17/23 08/27/23 History guanfacine 1 mg tablet,extended 1 mg PO BID 06/17/23 08/27/23 History release 24 hr multivitamin (Daily Multi-Vitamin 1 tab PO DAILY 06/17/23 08/27/23 History tablet) naproxen sodium 220 mg capsule 220 mg PO BID PRN 06/17/23 08/27/23 History (Aleve) omega 5-rtm-mez-fish oil 300 1 cap PO BID 06/17/23 08/27/23 History mg-1,000 mg capsule (Fish Oil) Exam Const General: cooperative, healthy appearing and not in acute distress Neck Neck: normal visual inspection, no lymphadenopathy and supple Thyroid: thyroid normal Resp Effort & Inspection: normal respiratory effort Auscultation: clear to auscultation bilaterally Cardio Jugular venous pressure: no JVD Rate: regular rate Rhythm: regular rhythm Heart Sounds: S1 normal and S2 normal GI Inspection: normal to inspection Palpation: soft, no guarding and nontender Percussion: normal to percussion Auscultation: normal bowel sounds Neuro General: patient alert, patient awake and patient oriented x3 Psych Appearance: grossly normal
[2023-08-27] VITALS (12 sets, daily range): BP systolic 91–132; BP diastolic 47–92; PULSE 66–83; RESP 12–21; TEMP 36.3–36.5; O2SAT 92–97; BMI 28.7
[2023-08-27] MEDS: Celecoxib 200 MG CAP PO (09:40)
[2023-08-27] MEDS: Acetaminophen 500 MG TAB 1000 MG PO (09:42)
[2023-08-27] MEDS: Gabapentin 300 MG CAP 600 MG PO (09:42)
[2023-08-27] MEDS: Lactated Ringers 1,000 ML 80 ML IV (09:52)
--- NOTE | 2023-08-27 10:22 | W.PM.DSUDISC ---
Date of service: 08/27/23 Time of Service: 10:22 Discharge Plan Disposition Patient Disposition: Home Condition: Good Discharge Details Reason For Visit: Open bilateral inguinal hernia repair with mesh Attending Provider: Asa Stapleton Primary Care Provider: Arlene Kumar Home Meds and New Rx's Prescriptions: New tramadol 50 mg tablet 50 mg PO Q8H PRNQty: 20 0RF Rx Instructions: Take 1 to 2 tablets by mouth up to every 8 hours if needed for severe pain. Continued naproxen sodium [Aleve] 220 mg capsule 220 mg PO BID PRN multivitamin [Daily Multi-Vitamin] Tablet 1 tab PO DAILY guanfacine 1 mg tablet extended release 24 hr 1 mg PO BID acetylcysteine [NAC] 600 mg capsule 600 mg PO BID Zyrtec 10 mg capsule 10 mg PO DAILY PRN omega 8-boo-deg-fish oil [Fish Oil] 300-1,000 mg capsule 1 cap PO BID lidocaine [Lidoderm] 5 % adhesive patch,medicated 1 patch topical DAILY Qty: 15 0RF Rx Instructions: leave on most painful area for up to 12 hrs, use no more than one patch per 24 hour period Discharge Instructions Instructions: Inguinal Hernia Repair (GEN) Additional Instructions: Nicholas, we were able to fix your knees today without any issues. The like we talked about beforehand, implanted permanent mesh is on both sides. The tissue surrounding it looks to very good, and hopefully these repairs will be durable over the course your life. I would not be surprised if you get some bruising in the area of the days to come. Do not be alarmed by that if that should occur. I would like to know if you notice any bright red skin changes or drainage from the wound. I also provided a prescription for some tramadol. It can be a little bit stronger, so we will use it only as needed. If you have any questions at all, please do not hesitate to call, otherwise we will see you in the office for your follow-up visit. 1. Resume all of your medications. 2. Use heating pads and ice packs over the area as needed for pain. I typically recommend about 15 minutes of therapy. This can be repeated as many times as needed throughout the course of the day 3. Okay to use tylenol and ibuprofen over the counter as needed. Use tramadol as needed for more severe pain. 4. Leave bandage in place for 24 hours, then remove. 5. Shower with warm soapy water. Pat dry. Use a bandaid if needed to protect your clothing. 6. No soaking or tub baths until I see you in the office. 7. No heavy lifting until I see you in the office. 8. Call the office (or go directly to the emergency room after hours) if you notice any of the following: Develop chills (warm to touch), or if you have a thermometer and your temperature is above 101 Difficulty breathing or difficultly swallowing Persistent vomiting Any bleeding ? exceeding one tablespoon 9. Call your physician if the site where your intravenous was started becomes red, swollen, painful, and warm to touch. Activity:: Activity as Tolerated Diet:: As Tolerated DS: Diagnosis Discharge Diagnosis (1) Bilateral inguinal hernia: Status: Acute Asessment and Plan: Through bilateral inguinal hernia repairs with mesh. Follow-up in the office
--- NOTE | 2023-08-27 10:25 | ROE_ITS ---
Date of service: 08/27/23 Time of Service: 13:07 Operative Note Operative Note DATE OF PROCEDURE: 08/27/23 PRE-OP DIAGNOSIS: Bilateral inguinal hernias PROCEDURE: Open bilateral inguinal herniorrhaphy with mesh SURGEON: Asa Stapleton MACHINIST CLASS B: Leonila Schultz ANESTHESIA TYPE: Local By Surgeon, General LMA/ETT and Other (Bilateral inguinal nerve blocks) Refer to Anesthesia Record PATHOLOGY: none sent COMPLICATIONS: None Patient was transported to: PACU Patient's condition: stable Implants: Bard PerFix light plug and patch on both sides Indications: Nicholas is a 42-year-old male with bilateral inguinal hernias that have caused increasing lower abdominal flank and groin pain Findings: Bilateral inguinal hernias Procedure Description: I began by confirming the correct site with the patient. Next, after induction of general anesthesia bilateral inguinal blocks were performed with real-time ultrasound guidance by the anesthesia team. The surgical site was then prepped and draped in the usual fashion. I began by making an oblique incision over the left inguinal region. I dissected down through the skin to the deep fascia. Next, I incised the fascia along the length of the inguinal canal to the external ring. I then carefully identified the ilioinguinal nerve and sharply divided it. Once this was complete, I bluntly dissected the shelving edge of the inguinal ligament down towards the pubic tubercle. Here, I encircled all cord structures with a Mic drain. Next, I began dissecting the specific cord structures. Great care was taken to spare the vas deferens and the blood supply to the testicle. Next, I isolated the hernia sac from the other inguinal structures. I reduced it back to its normal anatomic position. The floor of the inguinal canal was also a little bit patulous, but there was no discrete hernia defect here. I then used a Bard PerFix light large mesh plug to obliterate the defect at the internal ring. I fixed in place with interrupted Prolene stitches. Next, I buttressed the posterior floor of the inguinal canal with a large mesh patch. I started by fixing it to the pubic tubercle. Next, I used Prolene sutures to affix it to the shelving edge of the inguinal ligament a nd the conjoined tendon. Laterally I tacked it to the internal oblique fascia and reconstructed an internal ring without any strain on the cord structures. Once this was complete, I irrigated the surgical field. It appeared hemostatic. I then closed the anterior portion of the fascia to reconstruct the front wall of the inguinal canal. I did this with running Vicryl stitches. Once again, I irrigated the surgical field and inspected for hemostasis. Finally, I approximated the superficial fascia and the deep layers of the skin with absorbable suture. Skin was closed with running subcuticular stitches. This incision was then covered with a sterile towel, I turned my attention to the right side. Similar to the procedure on the left, I started with a incision over the right inguinal canal. I dissected down to the fascia and opened it sharply to the external ring. I then dissected the right inguinal cord structures just the same as the left. An indirect inguinal hernia sac was identified and dissected free. I reduced this back into the peritoneal space, and obliterated the space with another large Bard PerFix light plug. In a fashion identical to the left side, I secured the plug in place, and then reconstructed the floor of the inguinal canal with a mesh patch affixed to the pubic tubercle, shelving edge of the inguinal ligament, the conjoined tendon, and then around the internal oblique fascia. The site was also irrigated, the cord structures were returned to the normal anatomic positions, and external fascia was approximated creating the anterior wall of the canal. I should also mention that similar to the left side, I did sharply divided the ilioinguinal nerve on the right side as well. Skin and soft tissues were then closed in an identical fashion to the left side. Bandages were applied, the patient was awakened and transferred to the recovery unit.
--- NOTE | 2023-08-27 10:39 | W.ANESPRE ---
General Info Date of Service Date Performed: 08/27/23 Height: 5 ft 10 in Weight: 90.9 kg Body Mass Index (BMI): 28.7 Surgical Procedure: Operation Date: 08/27/23 10:25 Proposed Procedure Side Surgeon p Herniorrhaphy Inguinal w/Mesh Bilateral Asa Stapleton MD Meds Allergies and Home Medications Allergies Allergy/AdvReac Type Severity Reaction Status Date / Time apples Allergy Intermediate throat Uncoded 08/27/23 09:22 itching white birch pollen Allergy Intermediate Uncoded 08/27/23 09:22 fluticasone propionate AdvReac Intermediate Epistaxis Uncoded 08/27/23 09:22 Home Medication Medication Instructions Recorded lidocaine 5 % topical patch 1 patch topical DAILY #15 ea 05/05/21 (Lidoderm) acetylcysteine 600 mg capsule (NAC) 600 mg PO BID 06/17/23 cetirizine 10 mg capsule (Zyrtec) 10 mg PO DAILY PRN 06/17/23 guanfacine 1 mg tablet,extended 1 mg PO BID 06/17/23 release 24 hr multivitamin (Daily Multi-Vitamin 1 tab PO DAILY 06/17/23 tablet) naproxen sodium 220 mg capsule 220 mg PO BID PRN 06/17/23 (Aleve) omega 9-omo-xbf-fish oil 300 1 cap PO BID 06/17/23 mg-1,000 mg capsule (Fish Oil) tramadol 100 mg tablet 100 mg PO Q8H PRN #15 tabs 08/27/23 Current Visit Medications: Current Medications Generic Name Dose Route Start Last Admin Trade Name Freq PRN Reason Stop Dose Admin Acetaminophen 1,000 mg 08/27/23 06:00 Acetaminophen 500 Mg Tab PO 08/27/23 23:59 PREOP MARQUIS Acetaminophen 1,000 mg 08/27/23 06:00 08/27/23 09:42 Acetaminophen 500 Mg Tab PO 08/27/23 23:59 1,000 mg PREOP MARQUIS Administration Celecoxib 200 mg 08/27/23 06:00 08/27/23 09:40 Celecoxib 200 Mg Cap PO 08/27/23 23:59 200 mg PREOP MARQUIS Administration Gabapentin 600 mg 08/27/23 06:00 Gabapentin 300 Mg Cap PO 08/27/23 23:59 PREOP MARQUIS Gabapentin 600 mg 08/27/23 06:00 08/27/23 09:42 Gabapentin 300 Mg Cap PO 08/27/23 23:59 600 mg PREOP MARQUIS Administration Ringer's Solution 1,000 mls @ 80 mls/hr 08/27/23 06:00 08/27/23 09:52 IV 08/27/23 23:59 80 mls/hr INFUSION MARQUIS Administration Cefazolin Sodium/Dextrose 2 gm in 50 mls @ 100 mls/hr 08/27/23 06:00 Ancef Duplex IVPB 08/27/23 23:59 PREOP MARQUIS Ringer's Solution 1,000 mls @ 80 mls/hr 08/27/23 06:00 IV 08/27/23 23:59 INFUSION MARQUIS Cefazolin Sodium/Dextrose 2 gm in 50 mls @ 100 mls/hr 08/27/23 06:00 Ancef Duplex IVPB 08/27/23 23:59 PREOP MARQUIS IV Miscellaneous Supplies 1 each 08/27/23 06:00 Iv Access IV 08/27/23 23:59 DIRECTED MARQUIS IV Miscellaneous Supplies 1 each 08/27/23 06:00 Iv Access IV 08/27/23 23:59 DIRECTED MARQUIS Sodium Chloride 0 ml 08/27/23 06:00 Normal Saline Flush 10 Ml Syr IV 08/27/23 23:59 PRN PRN Sodium Chloride 0 ml 08/27/23 06:00 Normal Saline 10 Ml Vial IJ 08/27/23 23:59 DIRECTED PRN Sodium Chloride 0 ml 08/27/23 06:00 Normal Saline Flush 10 Ml Syr IV 08/27/23 23:59 PRN PRN Sodium Chloride 0 ml 08/27/23 06:00 Normal Saline 10 Ml Vial IJ 08/27/23 23:59 DIRECTED PRN Sterile Water 0 ml 08/27/23 06:00 Water,Injection,Sterile 10 Ml Vial IJ 08/27/23 23:59 DIRECTED PRN Sterile Water 0 ml 08/27/23 06:00 Water,Injection,Sterile 10 Ml Vial IJ 08/27/23 23:59 DIRECTED PRN PFSH Active Problems Active Problems: Problem Status Onset Code Bilateral inguinal hernia K40.20 Bilateral direct inguinal hernia K40.20 Neuralgia neuritis, sciatic nerve M54.30 Abdominal pain R10.9 Back pain M54.9 Medical History Medical History Hx of headache tension type headaches Right inguinal hernia GERD (gastroesophageal reflux disease) Right distal ureteral calculus Back problem JEANNIE on CPAP ADHD inattentive type Surgical History Surgical History History of colonoscopy History of esophagogastroduodenoscopy (EGD) History of Pj fundoplication Tobacco Smoking/Tobacco Use Status: Never Alcohol Alcohol Intake: current Alcohol intake frequency: holidays/special occasions only Substance Use Substance use: Never Substance use type: does not use Vital Signs and Lab Results Vital Signs Most Recent Vital Signs in EMR: Most Recent Vital Signs Temp Pulse Resp BP Pulse Ox 36.4 C L 83 20 132/92 H 97 08/27/23 09:36 08/27/23 09:36 08/27/23 09:36 08/27/23 09:36 08/27/23 09:36 Lab Results Blood Type / Crossmatch: No Data to Display Complete Blood Count: No Data to Display Complete Metabolic Panel: No Data to Display Liver Function Panel: No Data to Display Coagulation Panel: No Data to Display Cardiac Panel: No Data to Display Arterial Blood Gas: No Data to Display Venous Blood Gas: No Data to Display Pancreas Panel: No Data to Display Thyroid Panel: No Data to Display Infectious Disease: No Data to Display Blood Cultures: No Data to Display Toxicology Panel: No Data to Display Anesthesia Assessment and Plan Anesthesia History Personal History: No History of Anesthesia Complications Family History: No Family History of Anesthesia Complications Exercise Tolerance Exercise Tolerance: Metabolic Equivalents>4 Pertinent Negatives Pertinent Negatives: No Symptoms of GERD (Hx of Pj) Cardiac & Pulmonary Exam Cardiac Exam: Normal S1/S2 Heart Sounds Pulmonary Exam: Clear Bilateral Breath Sounds Implantable Cardiac Device Does patient have a Pacemaker or an ICD?: No Airway Exam Known Difficult Airway: No Mallampati Class: 2 Mouth Opening: Normal (> 3cm) Thyromental Distance: Greater than 3 cm Neck Range of Motion: Full ROM Neck Circumference: Normal Teeth Condition: Normal Dentition ASA Classification ASA Score: ASA 2 Emergency Case?: No NPO Status NPO Status: NPO Clears >2 hours, Solids >8 hours Anesthesia Plan Resuscitation Status: Full Code Anesthesia Technique: General Anesthesia Airway Planned: LMA Monitors Used: Standard Monitors, SedLine and POCUS
[2023-08-27] MEDS: ceFAZolin 2 GM/50 ML BAG IVPB (11:03)
--- NOTE | 2023-08-27 11:39 | W.ANESNERVE ---
Nerve Block Single Injection Procedure Date and Time Date Performed: 08/27/23 Procedure Start: 11:10 Location Where Procedure Performed Procedure Location: Operating Room Procedure Stop: 11:20 Reason Performed: Postoperative Analgesia Requesting Provider: Asa Stapleton Timeout Performed Timeout Performed: Yes Monitoring Used ECG, Blood Pressure, SpO2, ETCO2 and See EMR for corresponding vital signs Sterility Sterility: Hand Hygiene, Surgical Cap, Surgical Mask, Sterile Gloves, Eye Protection and Chlorhexidine Sedation Given During Procedure Sedation Given (Indicate Dose Given): No Sedation given Patient Mental Status Patient Mental Status: Performed under general anesthesia Nerve Block 1st Nerve Block: Laterality: Bilateral Block Type: TAP Bilateral Ultrasound Image Saved?: Yes Needle / Catheter Used: 100mm SonoPlex II Local Anesthetic Bolus (Indicate Dose Given): Injected in 3-5ml increments after negative blood aspiration, Half of Total block solution given into each side, Bupivacaine 0.5% Dose:: 0.5%/20cc (100mg) and Exparel Dose:: 1.33%/20cc (266mg) Additives (Indicate Dose Given): Epinephrine to make 1:400,000 (2.5mcg/ml) Dose:: 100mcg/40cc (1:400,000) Ultrasound: Sterile probe cover and gel used Nerve Stimulator: Not Used Paresthesia: None Procedure Tolerated: No Complications and Patient tolerated well Procedure Outcome: Successful Performed By: Jagjit Thompson
--- NOTE | 2023-08-27 15:07 | W.ANESPOSTOP ---
Postoperative Evaluation Date, Time and Location Date Performed: 08/27/23 Time Performed: 15:07 Patient Location: Day Surgery Unit Vital Signs Most Recent Imported Vital Signs: Most Recent Vital Signs Temp Pulse Resp BP Pulse Ox 36.4 C L 67 18 108/77 95 08/27/23 14:53 08/27/23 14:53 08/27/23 14:53 08/27/23 14:53 08/27/23 14:53 Pain Score Most Recent Pain Score: Most Recent Pain Score Pain Level 3 08/27/23 14:53 Assessment Mental Status: Awake (Alert & Oriented to Patient Baseline) Airway and Respiratory Function: Patent airway with normal (patient baseline) respiratory exam Cardiovascular Function: Hemodynamically Stable Hydration Status: Adequately Hydrated Nausea & Vomiting: No Nausea or Vomiting Pain: Pt. Denies Any Pain Peripheral Nerve Block: Patient did not receive a nerve block
== END 2023-08-27 15:25 | disposition home or self-care (01) ==
PROVIDERS: PCP Nurse Practitioner Family; Visit Provider Surgery
PROC: (CPT 49505; principal; 2023-08-27 10:15)
DX: K40.20 Bilateral inguinal hernia, without obstruction or gangrene, not specified as recurrent (principal); M54.31 Sciatica, right side
CPT/HCPCS: 49505; 76942; C1781; C9290; J0131; J0171; J0665; J0690; J1100; J1885; J2001; J2250; J2405; J2704

== ENCOUNTER 2023-12-29 18:49 | Emergency (ER) | payer OTHER, SELFPAY ==
--- NOTE | 2023-12-29 19:00 | DI.CT_ITS ---
Exam(s) CT RENAL COLIC WO EXAM: CT RENAL COLIC WO CLINICAL HISTORY: Left flank pain. TECHNIQUE: Imaging Protocol: Axial computed tomography images with coronal and sagittal reformatted images were created and reviewed. COMPARISON: CT CT RENAL COLIC WO from 07/17/[address] ABDOMEN PELVIS WO from 05/18/2023 FINDINGS: ABDOMEN: Lung Bases: There is a small hiatal hernia. Liver: There is fatty infiltration of the liver. No measurable mass. Gallbladder and biliary tract: No radiodense calculus or biliary ductal dilation. Pancreas: Normal density, no abnormal calcifications or inflammatory process. Spleen: Normal. Kidneys: Normal size, contour and axis.There is a 4 mm stone at the left UPJ causing moderate hydrone phrosis. No masses seen. Adrenal glands: No mass is seen. Lymph nodes: Within normal limits. Abdominal Aorta: Abdominal portion non-dilated. Minimal atherosclerotic calcification. PELVIS: Bladder:The urinary bladder is incompletely distended. There is thickening of the wall diffusely. T his may be due to underdistention. Cystitis cannot be excluded. Bowel: No obstruction or bowel wall thickening. Appendix is unremarkable. Peritoneal cavity: No ascites, collection or mesenteric inflammatory response. No free air. Reproductive organs: Unremarkable as visualized. Bones: Within normal limits. Soft Tissues: Small fat containing umbilical hernia. IMPRESSION: 1. 4 mm left UPJ obstruction causing moderate hydronephrosis. 2. Thickening of the wall of the urinary bladder. This may be due to underdistention. Cystitis desi ot be entirely excluded. Please correlate clinically. RADIATION DOSE DELIVERED: 910.72mGy.cm Total DLP DATA REPOSITORY: All CT scans at this facility are submitted to the National Radiology Data Registry (NRDR) Dose Index Registry (DIR) with the [employer] (ACR). RADIATION OPTIMIZATION: All CT scans at this facility use at least one of these dose optimization te chniques: automated exposure control; mA and/or kV adjustment per patient size (includes targeted exa ms where dose is matched to clinical indication); or iterative reconstruction.
[2023-12-29 19:01] VITALS: BP 179/109; PULSE 96; RESP 14; TEMP 37; O2SAT 99
[2023-12-29 19:24] VITALS: BP 179/109; PULSE 96; RESP 14; TEMP 37; O2SAT 99
[2023-12-29 19:28] LABS: Abs Immature Grans 0.04 10^3/uL (0.0-0.06); Absolute Basophil Count 0.02 10^3/uL (0.0-0.2); Absolute Lymphocyte Count 0.87 10^3/uL (1.2-3.4); Absolute Monocyte Count 0.63 10^3/uL (0.1-0.8); Basophils % 0.2 %; Eosinophils % 0.3 %; HCT 47.2 % (40.0-50.0); HGB 16.8 g/dL (13.5-17.5); Immature Grans % 0.3 %; Lymphocytes % 7.3 %; MCH 31.9 pg (27.0-33.0); MCHC 35.6 % (32.0-36.0); MCV 90 fL (80-95); Monocytes % 5.3 %; Neutrophils % 86.6 %; Platelet Count 174 10^3/uL (130-400); RBC 5.27 10^6/uL (4.36-5.78); RDW 11.9 % (11.8-14.1); RDW-SD 38.7 fL; WBC 11.91 10^3/uL (4.4-10.8)
[2023-12-29 19:29] LABS: Absolute Eosinophil Count 0.04 10^3/uL (0.0-0.7); Absolute Neutrophil Count 10.31 10^3/uL (1.2-6.7)
[2023-12-29 19:46] LABS: ALT 67 U/L (16-63); AST 31 U/L (15-37); Albumin 3.9 g/dL (3.4-5.0); Alkaline Phosphatase 69 U/L (46-116); Anion Gap 7.8 mmol/L (3-11); BUN 17 mg/dL (7-18); Bilirubin, Total 0.8 mg/dL (0.2-1.0); CO2 30.2 mmol/L (21.0-32.0); CREATININE 1.6 mg/dL (0.70-1.30); Chloride 101 mmol/L (98-107); Estimated GFR 54.15 (mL/min/1.73m2); Glucose 181 mg/dL (74-106); Potassium 3.9 mmol/L (3.5-5.1); Sodium 139 mmol/L (136-145); Total Protein 7.3 g/dL (6.4-8.2)
[2023-12-29 19:52] LABS: Bilirubin Negative (Negative); Blood Moderate (Negative); Clarity Clear (Clear); Glucose 250 mg/dL (Negative); Ketones Negative (Negative); Leukocyte Esterase Negative (Negative); Nitrite Negative (Negative); Urobilinogen 0.2 mg/dL (Up to 0.2)
--- NOTE | 2023-12-29 19:57 | ED.GENADUL_ITS ---
Discharge Plan Disposition Patient Disposition: Home Condition: Stable Discharge Details Clinical Impression: Hydronephrosis with ureteral calculus, Left ureteral stone Primary Care Provider: Arlene Kumar ED Provider: Lillian Mcqueen Home Meds and New Rx's Prescriptions: New tamsulosin 0.4 mg capsule 0.4 mg PO QHS 7 Days Qty: 7 0RF Rx Instructions: Take 1 capsule at bedtime for the next 7 days No Action naproxen sodium [Aleve] 220 mg capsule 220 mg PO BID PRN multivitamin [Daily Multi-Vitamin] Tablet 1 tab PO DAILY guanfacine 1 mg tablet extended release 24 hr 1 mg PO BID acetylcysteine [NAC] 600 mg capsule 600 mg PO BID Zyrtec 10 mg capsule 10 mg PO DAILY PRN omega 3-llm-jlr-fish oil [Fish Oil] 300-1,000 mg capsule 1 cap PO BID ondansetron 4 mg tablet,disintegrating 4 mg PO Q8H PRN (Reason: nausea and vomiting) 5 Days Qty: 15 0RF ketorolac 10 mg tablet 10 mg PO TID PRN (Reason: pain) 5 Days Qty: 15 0RF lidocaine [Lidoderm] 5 % adhesive patch,medicated 1 patch topical DAILY Qty: 15 0RF Rx Instructions: leave on most painful area for up to 12 hrs, use no more than one patch per 24 hour period dextroamphetamine-amphetamine 30 mg capsule,extended release 24hr 30 mg PO DAILY Discharge Instructions Instructions: Kidney Stones (ED) Additional Instructions: Please call urology office tomorrow morning you do have a obstructing kidney stone in your left ureter. Please continue take the Zofran and Toradol as previously prescribed. I am also giving you tamsulosin to help dilate your ureters. Take that once daily at bedtime. If you become overly dizzy do not continue taking it. Follow up with primary care provider/urology in 1 days. Return to ED sooner if any worsening or concerns. Stand Alone Forms: Work Release Referrals: Jignesh Montoya MD [ [facility] STAFF PHYSICIAN] - 1 day (Call to be seen in next couple of days) Arlene Kumar [Primary Care Provider] - 3 days Discharge Data Discharge Date/Time-TO BE ENTERED AT DEPARTURE: 12/29/23 21:44 HPI General Mode of arrival: ambulatory . Date/Time Provider Initiated Documentation: 12/29/23 19:10 . Limitations to Documentation: no limitations . Information obtained by: patient, family, RN notes reviewed and old records reviewed . HPI Narrative: 43-year-old male presents to the ER with a chief complaint of left flank pain which began on Wednesday worse since 9:00 this morning. He reports that he has had kidney stones in the past and had to have surgical intervention. He is also had a Flaco fundoplication in the past. He did take Zofran and Toradol prior to arrival to urology. He does complain of nausea. No other associated symptoms or complaints at this time. Other past medical history includes obstructive sleep apnea GERD and right inguinal hernia. Related Data Home Medications Medication Instructions Recorded Confirmed lidocaine 5 % topical patch 1 patch topical DAILY #15 ea 05/05/21 12/29/23 (Lidoderm) acetylcysteine 600 mg capsule (NAC) 600 mg PO BID 06/17/23 12/29/23 cetirizine 10 mg capsule (Zyrtec) 10 mg PO DAILY PRN 06/17/23 12/29/23 guanfacine 1 mg tablet,extended 1 mg PO BID 06/17/23 12/29/23 release 24 hr multivitamin (Daily Multi-Vitamin 1 tab PO DAILY 06/17/23 12/29/23 tablet) naproxen sodium 220 mg capsule 220 mg PO BID PRN 06/17/23 12/29/23 (Aleve) omega 5-dkj-awq-fish oil 300 1 cap PO BID 06/17/23 12/29/23 mg-1,000 mg capsule (Fish Oil) dextroamphetamine-amphetamine ER 30 mg PO DAILY 12/29/23 12/29/23 30 mg 24hr capsule,extend release ketorolac 10 mg tablet 10 mg PO TID PRN pain 5 days #15 12/29/23 12/29/23 tabs ondansetron 4 mg disintegrating 4 mg PO Q8H PRN nausea and 12/29/23 12/29/23 tablet vomiting 5 days #15 tabs tamsulosin 0.4 mg capsule 0.4 mg PO QHS kidney stone 7 days 12/29/23 #7 caps Previous Rx's Medication Instructions Recorded lidocaine 5 % topical patch 1 patch topical DAILY #15 ea 05/05/21 (Lidoderm) ketorolac 10 mg tablet 10 mg PO TID PRN pain 5 days #15 12/29/23 tabs ondansetron 4 mg disintegrating 4 mg PO Q8H PRN nausea and 12/29/23 tablet vomiting 5 days #15 tabs tamsulosin 0.4 mg capsule 0.4 mg PO QHS kidney stone 7 days 12/29/23 #7 caps Allergies Allergy/AdvReac Type Severity Reaction Status Date / Time apples Allergy Intermediate throat Uncoded 12/29/23 19:05 itching white birch pollen Allergy Intermediate Itching Uncoded 12/29/23 19:05 fluticasone propionate AdvReac Intermediate Epistaxis Uncoded 12/29/23 19:05 General Stated Complaint: FlankPain RONDA: 3 Review of Systems All systems reviewed & are unremarkable except as noted in HPI and below Genitourinary Genitourinary: Reports as per HPI and Reports flank pain Exam Narrative Exam Narrative: Constitutional: Alert and oriented x3. Appears stated age. Normal body habitus. Head: Normocephalic, no trauma. Eyes: Pupils PERRL, Red reflex noted, EOM's intact. Eyelids symmetrical without lesions, discharge, or swelling. ENT: Bilateral TM's WNL, External ear normal to inspection, no mastoid TTP, swelling, or erythema, Nasal turbinates WNL, no nasal discharge. Normal dentition, Posterior pharynx WNL, no exudate. Chest: RRR, Normal S1, S2, distal pulses intact. Resp: Lungs clear to auscultation bilaterally, no wheezes, rales, or rhonchi. Abdomen: Soft, non-distended, Normoactive bowel sounds all 4 quads. Musculoskeletal: Normal gait, Moves all 4 extremities without difficulty. Skin: No suspicious rashes or lesions. Capillary refill less than 2 sec. Neurologic: Cranial nerves II-XII intact. Alert and oriented x 3. Motor: No deficits noted. Sensory: Intact bilaterally all 4 extremities. Hematologic/Lymphatic: No ecchymosis, no lymphadenopathy. Course Vital Signs Vital signs: Vital Signs Temperature 37.0 C 12/29/23 19:01 Pulse 96 H 12/29/23 19:01 Respiratory Rate 14 12/29/23 19:01 Blood Pressure 179/109 H 12/29/23 19:01 Pulse Oximetry 99 12/29/23 19:01 Temperature 37.0 C 12/29/23 19:24 Temperature Source Skin 12/29/23 19:24 Pulse 96 H 12/29/23 19:24 Respiratory Rate 14 12/29/23 19:24 Respiratory Effort Normal, Non-Labored 12/29/23 19:04 Blood Pressure 179/109 H 12/29/23 19:24 Blood Pressure Position Sitting 12/29/23 19:24 Pulse Oximetry 99 12/29/23 19:24 Oxygen Delivery Method Room Air 12/29/23 19:24 Oxygen Flow Rate 0 12/29/23 19:24 Pain Level 6 12/29/23 19:24 Lab/Test Results Lab/Test Results: Laboratory Tests Range/Units 12/29/23 12/29/23 12/29/23 18:22 19:22 19:36 WBC (4.4-10.8) 10^3/uL 11.91 H RBC (4.36-5.78) 10^6/uL 5.27 Hgb (13.5-17.5) g/dL 16.8 Hct (40.0-50.0) % 47.2 MCV (80-95) fL 90 MCH (27.0-33.0) pg 31.9 MCHC (32.0-36.0) % 35.6 RDW (11.8-14.1) % 11.9 Plt Count (130-400) 10^3/uL 174 MPV (8.0-11.0) fL 9.0 Immature Gran % % 0.3 Neutrophils % % 86.6 Lymphocytes % % 7.3 Monocytes % % 5.3 Eosinophils % % 0.3 Basophils % % 0.2 Nucleated RBC % (0.0-0.3) % 0.0 Absolute Neutrophils (1.2-6.7) 10^3/uL 10.31 H Absolute Lymphocytes (1.2-3.4) 10^3/uL 0.87 L Absolute Monocytes (0.1-0.8) 10^3/uL 0.63 Absolute Eosinophils (0.0-0.7) 10^3/uL 0.04 Absolute Basophils (0.0-0.2) 10^3/uL 0.02 Sodium (136-145) mmol/L 139 Potassium (3.5-5.1) mmol/L 3.9 Chloride (98-107) mmol/L 101 Carbon Dioxide (21.0-32.0) mmol/L 30.2 Anion Gap (3-11) mmol/L 7.8 BUN (7-18) mg/dL 17 Creatinine (0.70-1.30) mg/dL 1.6 H Est GFR (CKD-EPI 2020) (mL/min/1.73m2) 54.15 Glucose (74-106) mg/dL 181 H Calcium (8.5-10.1) mg/dL 9.0 Total Bilirubin (0.2-1.0) mg/dL 0.8 AST (15-37) U/L 31 ALT (16-63) U/L 67 H Alkaline Phosphatase (46-116) U/L 69 Total Protein (6.4-8.2) g/dL 7.3 Albumin (3.4-5.0) g/dL 3.9 Urine Color (Yellow) Yellow Urine Clarity (Clear) Clear Urine pH (5-8) 6.0 Ur Specific [place] (1.005-1.025) 1.010 Urine Protein (Neg-Trace) mg/dL Negative Urine Ketones (Negative) mg/dL Negative Urine Blood (Negative) Moderate H Urine Nitrite (Negative) Negative Urine Bilirubin (Negative) Negative Urine Urobilinogen (Up to 0.2) mg/dL 0.2 Ur Leukocyte Esterase (Negative) Negative Urine Glucose (Negative) mg/dL 250 H Medical Decision Making 43-year-old male presents to the ER with a chief complaint of left flank pain which began on Wednesday worse since 9:00 this morning. He reports that he has had kidney stones in the past and had to have surgical intervention. He is also had a Flaco fundoplication in the past. He did take Zofran and Toradol prior to arrival to urology. He does complain of nausea. No other associated symptoms or complaints at this time. Other past medical history includes obstructive sleep apnea GERD and right inguinal hernia. Workup ordered including urinalysis CBC CMP CT renal colic. Differential diagnosis includes but not limited to kidney stone, pyelonephritis, musculoskeletal sprain. UTI. WBCs 11.91, creatinine 1.6 urinalysis shows moderate blood 250 glucose no leukocytes or nitrites noted. CT shows a 4 x 3 ureteral obstructing stone with some hydronephrosis, given tamsulosin and instructed on use. Placed on care management list for urology referral and discuss strict return instructions verbalized understanding. At this time there is no evidence of UTI or infected stone. Patient does have Toradol and Zofran at home which was prescribed previously I encouraged him to keep taking this. This text was generated using [employer] system, please disregard any oddities of phrase or misspellings. Medical Records Medical records reviewed: Yes I reviewed the patient's medical records. Lab Data Lab results reviewed: Yes I reviewed the patient's lab results. Labs: Laboratory Tests Range/Units 12/29/23 12/29/23 12/29/23 18:22 19:22 19:36 WBC (4.4-10.8) 10^3/uL 11.91 H RBC (4.36-5.78) 10^6/uL 5.27 Hgb (13.5-17.5) g/dL 16.8 Hct (40.0-50.0) % 47.2 MCV (80-95) fL 90 MCH (27.0-33.0) pg 31.9 MCHC (32.0-36.0) % 35.6 RDW (11.8-14.1) % 11.9 Plt Count (130-400) 10^3/uL 174 MPV (8.0-11.0) fL 9.0 Immature Gran % % 0.3 Neutrophils % % 86.6 Lymphocytes % % 7.3 Monocytes % % 5.3 Eosinophils % % 0.3 Basophils % % 0.2 Nucleated RBC % (0.0-0.3) % 0.0 Absolute Neutrophils (1.2-6.7) 10^3/uL 10.31 H Absolute Lymphocytes (1.2-3.4) 10^3/uL 0.87 L Absolute Monocytes (0.1-0.8) 10^3/uL 0.63 Absolute Eosinophils (0.0-0.7) 10^3/uL 0.04 Absolute Basophils (0.0-0.2) 10^3/uL 0.02 Sodium (136-145) mmol/L 139 Potassium (3.5-5.1) mmol/L 3.9 Chloride (98-107) mmol/L 101 Carbon Dioxide (21.0-32.0) mmol/L 30.2 Anion Gap (3-11) mmol/L 7.8 BUN (7-18) mg/dL 17 Creatinine (0.70-1.30) mg/dL 1.6 H Est GFR (CKD-EPI 2020) (mL/min/1.73m2) 54.15 Glucose (74-106) mg/dL 181 H Calcium (8.5-10.1) mg/dL 9.0 Total Bilirubin (0.2-1.0) mg/dL 0.8 AST (15-37) U/L 31 ALT (16-63) U/L 67 H Alkaline Phosphatase (46-116) U/L 69 Total Protein (6.4-8.2) g/dL 7.3 Albumin (3.4-5.0) g/dL 3.9 Urine Color (Yellow) Yellow Urine Clarity (Clear) Clear Urine pH (5-8) 6.0 Ur Specific [place] (1.005-1.025) 1.010 Urine Protein (Neg-Trace) mg/dL Negative Urine Ketones (Negative) mg/dL Negative Urine Blood (Negative) Moderate H Urine Nitrite (Negative) Negative Urine Bilirubin (Negative) Negative Urine Urobilinogen (Up to 0.2) mg/dL 0.2 Ur Leukocyte Esterase (Negative) Negative Urine RBC (0-2) HPF 3-5 H Urine WBC (0-5) HPF 0-2 Ur Epithelial Cells (Negative) HPF Negative Urine Crystals (Negative) HPF Negative Urine Bacteria (Negative) HPF Negative Urine Casts (Negative) LPF Negative Urine Mucus (Negative) Negative Ur Culture Indicated? No Urine Glucose (Negative) mg/dL 250 H Quality:SDOH Health Related Social Needs: No Data to Display PFSH All Active Problems (Updated 12/29/23 @ 21:31 by Lillian Mcqueen NP) Left ureteral stone (Acute) Hydronephrosis with ureteral calculus (Acute) Bilateral inguinal hernia (Acute ~08/2023) Bilateral direct inguinal hernia (Acute ~08/2023) Neuralgia neuritis, sciatic nerve (Acute) Abdominal pain (Acute) Back pain (Acute) Medical History Hx of headache tension type headaches Right inguinal hernia GERD (gastroesophageal reflux disease) Right distal ureteral calculus Back problem JEANNIE on CPAP ADHD inattentive type Surgical History History of colonoscopy History of esophagogastroduodenoscopy (EGD) History of Pj fundoplication Family History Other Cancer Diabetes Social History Smoking/Tobacco Use Status: Never Smoking risk assessment performed?: Yes Alcohol Intake: current Alcohol Intake frequency: holidays/special occasions only Drug use: Never Substance use type: does not use Housing: house Do you feel safe at home: Yes Do you feel safe in your relationship?: Yes
[2023-12-29 20:01] LABS: Bacteria Negative HPF (Negative); C & S Indicated? No; Casts Negative LPF (Negative); Crystals Negative HPF (Negative); Epithelial Cells Negative HPF (Negative); Mucus Negative (Negative); WBC 0-2 HPF (0-5)
[2023-12-29] MEDS: MORPHine 10 MG/ML VIAL 2 MG IVP (20:07)
[2023-12-29] MEDS: Normal Saline Flush 10 ML SYR IVP (20:08)
--- NOTE | 2023-12-29 21:24 | DI.VRAD_ITS ---
PROCEDURE INFORMATION: Exam: CT Abdomen And Pelvis Without Contrast Exam date and time: 12/29/2023 7:45 PM Age: 43 years old Clinical indication: Other: Left flank pain TECHNIQUE: Imaging protocol: Computed tomography of the abdomen and pelvis without contrast. COMPARISON: CT ABDOMEN PELVIS WO 05/18/2023 1:11 AM FINDINGS: Lungs: Streaky atelectasis at the lung bases. Liver: Diffuse fatty infiltration of the liver. Gallbladder and bile ducts: Normal appearing gallbladder. No calcified gallstones. No biliary dilatation. Pancreas: Grossly unremarkable unenhanced pancreas. Spleen: Grossly unremarkable unenhanced spleen. Adrenal glands: Normal appearing adrenal glands. Kidneys and ureters: 4 mm x 3 mm stone in the proximal left ureter with periureteral edema, upstream ureterectasis, moderate hydronephrosis, and perinephric edema in keeping with obstructive uropathy. No right-sided urinary tract stones or hydronephrosis. Stomach and bowel: Suspected prior Pj fundoplication. Correlation with surgical history recommended. 3.7 cm hiatal hernia with apparent herniation of the Pj wrap above the diaphragm. No oral contrast. Stomach moderately distended with fluid and gas. No small bowel dilatation to suggest obstruction. Colon largely well evacuated of fecal material and collapsed. No evidence of diverticulitis. Mild mural thickening throughout the collapsed segments of the colon. Artifact of underdistention is suspected. Acute colitis could probably produce a similar appearance. Clinical correlation is recommended. Appendix: Normal appendix. Intraperitoneal space: No gross ascites or free air. Vasculature: Normal caliber abdominal aorta. Lymph nodes: No pathologically enlarged mesenteric, retroperitoneal, or pelvic sidewall lymph nodes. Urinary bladder: Urinary bladder partially decompressed but circumferentially thick-walled. Reproductive: Normal-appearing prostate gland and seminal vesicles. Bones/joints: No acute fracture seen among the bones of the abdomen or pelvis. Moderate discogenic degeneration at L5-S1. Anterior vertebral osteophytes at several levels. Soft tissues: Tiny fat-containing ventral hernia at the umbilicus, doubtful clinical significance. Apparent prior bilateral inguinal herniorrhaphies. Correlation with surgical history recommended. IMPRESSION: 1. 4 mm x 3 mm obstructing proximal left ureteral calculus. 2. Diffuse fatty infiltration of the liver. 3. Suspected prior Pj fundoplication. Correlation with surgical history recommended. 3.7 cm hiatal hernia with apparent herniation of the Pj wrap above the diaphragm. 4. Mild mural thickening throughout the collapsed segments of the colon. Artifact of underdistention is suspected. Acute colitis could probably produce a similar appearance. Clinical correlation is recommended. 5. Circumferential bladder wall thickening, nonspecific. Artifact of incomplete distention, acute cystitis, or chronic outflow obstruction could produce this appearance. Dictated and Authenticated by: Marv Garcia MD. Ordering:TORSTEN Snyder MD
--- NOTE | 2023-12-29 21:31 | NUR.NOTE ---
Referral faxed to [facility] Urology to f/u for kidney stones ?1-2 days.Nursing Note:
[2023-12-29 21:36] VITALS: BP 152/101; PULSE 76; RESP 14; O2SAT 100
[2023-12-29] MEDS: Tamsulosin 0.4 MG CAPCR PO (21:36)
== END 2023-12-29 21:44 | disposition home or self-care (01) ==
PROVIDERS: Emergency Provider Registered Nurse Emergency; PCP Nurse Practitioner Family
DX: N13.2 Hydronephrosis with renal and ureteral calculous obstruction (principal); R10.32 Left lower quadrant pain
CPT/HCPCS: 36415; 80053; 96374; 99284; 74176; 81003; 81015; 85025; 99283; J2270

== ENCOUNTER 2024-01-06 07:21 | Day surgery (SDC) | payer OTHER, SELFPAY ==
[2024-01-06] VITALS (8 sets, daily range): BP systolic 115–138; BP diastolic 76–95; PULSE 62–78; RESP 11–18; TEMP 36.2–36.4; O2SAT 91–97; BMI 28.6
[2024-01-06] MEDS: Lactated Ringers 1,000 ML 80 ML IV (07:56)
--- NOTE | 2024-01-06 08:19 | ANES.PREOP_ITS ---
General Info Date of Service Date Performed: 01/06/24 Height: 5 ft 10 in Weight: 90.6 kg Body Mass Index (BMI): 28.6 Surgical Procedure: Operation Date: 01/06/24 09:25 Proposed Procedure Side Surgeon p Cystoscopy/Laser/Retrograde/Ureteroscopy/ ? Stent Left Jignesh Montoya MD Meds Allergies and Home Medications Allergies Allergy/AdvReac Type Severity Reaction Status Date / Time apples Allergy Intermediate throat Uncoded 01/06/24 07:40 itching white birch pollen Allergy Intermediate Itching Uncoded 01/06/24 07:40 fluticasone propionate AdvReac Intermediate Epistaxis Uncoded 01/06/24 07:40 Home Medication Medication Instructions Recorded lidocaine 5 % topical patch 1 patch topical DAILY #15 ea 05/05/21 (Lidoderm) acetylcysteine 600 mg capsule (NAC) 600 mg PO BID 06/17/23 cetirizine 10 mg capsule (Zyrtec) 10 mg PO DAILY PRN 06/17/23 guanfacine 1 mg tablet,extended 1 mg PO BID 06/17/23 release 24 hr multivitamin (Daily Multi-Vitamin 1 tab PO DAILY 06/17/23 tablet) naproxen sodium 220 mg capsule 220 mg PO BID PRN 06/17/23 (Aleve) omega 5-ifl-ffd-fish oil 300 1 cap PO BID 06/17/23 mg-1,000 mg capsule (Fish Oil) dextroamphetamine-amphetamine ER 30 mg PO DAILY 12/29/23 30 mg 24hr capsule,extend release ondansetron 4 mg disintegrating mg 01/06/24 tablet tamsulosin 0.4 mg capsule mg PO 01/06/24 Current Visit Medications: Current Medications Generic Name Dose Route Start Last Admin Trade Name Freq PRN Reason Stop Dose Admin Ringer's Solution 1,000 mls @ 80 mls/hr 01/06/24 06:00 01/06/24 07:56 IV 01/06/24 23:59 80 mls/hr INFUSION MARQUIS Administration Cefazolin Sodium/Dextrose 2 gm in 50 mls @ 100 mls/hr 01/06/24 06:00 Ancef Duplex IVPB 01/06/24 23:59 PREOP MARQUIS IV Miscellaneous Supplies 1 each 01/06/24 06:00 Iv Access IV 01/06/24 23:59 DIRECTED MARQUIS Sodium Chloride 0 ml 01/06/24 06:00 Normal Saline Flush 10 Ml Syr IV 01/06/24 23:59 PRN PRN Sodium Chloride 0 ml 01/06/24 06:00 Normal Saline 10 Ml Vial IJ 01/06/24 23:59 DIRECTED PRN Sterile Water 0 ml 01/06/24 06:00 Water,Injection,Sterile 10 Ml Vial IJ 01/06/24 23:59 DIRECTED PRN PFSH Active Problems Active Problems: Problem Status Onset Code Left ureteral stone N20.1 Hydronephrosis with ureteral calculus N13.2 Bilateral inguinal hernia ~08/2023 K40.20 Bilateral direct inguinal hernia ~08/2023 K40.20 Neuralgia neuritis, sciatic nerve M54.30 Abdominal pain R10.9 Back pain M54.9 Medical History Medical History Hx of headache tension type headaches Right inguinal hernia GERD (gastroesophageal reflux disease) Right distal ureteral calculus Back problem JEANNIE on CPAP ADHD inattentive type Surgical History Surgical History History of hernia surgery History of colonoscopy History of esophagogastroduodenoscopy (EGD) History of Pj fundoplication Tobacco Smoking/Tobacco Use Status: Never Alcohol Alcohol Intake: current Alcohol intake frequency: holidays/special occasions only Substance Use Substance use: Never Substance use type: does not use Vital Signs and Lab Results Vital Signs Most Recent Vital Signs in EMR: Most Recent Vital Signs Temp Pulse Resp BP Pulse Ox 36.4 C L 70 16 125/83 97 01/06/24 07:33 01/06/24 07:33 01/06/24 07:33 01/06/24 07:33 01/06/24 07:33 Lab Results Blood Type / Crossmatch: No Data to Display Complete Blood Count: White Blood Count 11.91 10^3/uL (4.4-10.8) H 12/29/23 19:22 Red Blood Count 5.27 10^6/uL (4.36-5.78) 12/29/23 19:22 Hemoglobin 16.8 g/dL (13.5-17.5) 12/29/23 19:22 Hematocrit 47.2 % (40.0-50.0) 12/29/23 19:22 Platelet Count 174 10^3/uL (130-400) 12/29/23 19:22 Complete Metabolic Panel: Sodium 139 mmol/L (136-145) 12/29/23 18:22 Potassium 3.9 mmol/L (3.5-5.1) 12/29/23 18:22 Chloride 101 mmol/L (98-107) 12/29/23 18:22 Carbon Dioxide 30.2 mmol/L (21.0-32.0) 12/29/23 18:22 BUN 17 mg/dL (7-18) 12/29/23 18:22 Creatinine 1.6 mg/dL (0.70-1.30) H 12/29/23 18:22 Est GFR (CKD-EPI 2020) 54.15 (mL/min/1.73m2) 12/29/23 18:22 Calcium 9.0 mg/dL (8.5-10.1) 12/29/23 18:22 Albumin 3.9 g/dL (3.4-5.0) 12/29/23 18:22 Glucose 181 mg/dL (74-106) H 12/29/23 18:22 Liver Function Panel: Alanine Aminotransferase (ALT/SGPT) 67 U/L (16-63) H 12/29/23 1 8:22 Aspartate Amino Transf (AST/SGOT) 31 U/L (15-37) 12/29/23 18:22 Coagulation Panel: No Data to Display Cardiac Panel: 2 No Data to Display Arterial Blood Gas: No Data to Display Venous Blood Gas: No Data to Display Pancreas Panel: No Data to Display Thyroid Panel: No Data to Display Infectious Disease: No Data to Display Blood Cultures: No Data to Display Toxicology Panel: No Data to Display Anesthesia Assessment and Plan Anesthesia History Personal History: No History of Anesthesia Complications Family History: No Family History of Anesthesia Complications Exercise Tolerance Exercise Tolerance: Metabolic Equivalents>4 Pertinent Negatives Pertinent Negatives: No Symptoms of GERD, No Major Cardiovascular Symptoms or Complaints and No History of CVA/TIA Cardiac & Pulmonary Exam Cardiac Exam: Normal S1/S2 Heart Sounds Pulmonary Exam: Clear Bilateral Breath Sounds Implantable Cardiac Device Does patient have a Pacemaker or an ICD?: No Airway Exam Known Difficult Airway: No Mallampati Class: 2 Mouth Opening: Normal (> 3cm) Thyromental Distance: Greater than 3 cm Neck Range of Motion: Full ROM Neck Circumference: Normal Teeth Condition: Normal Dentition ASA Classification ASA Score: ASA 2 Emergency Case?: No NPO Status NPO Status: NPO Clears >2 hours, Solids >8 hours Anesthesia Plan Resuscitation Status: Full Code Anesthesia Technique: General Anesthesia Airway Planned: Endotracheal Tube Monitors Used: Standard Monitors
--- NOTE | 2024-01-06 09:04 | W.PM.HP.N ---
Date of service: 01/06/24 Time of Service: 09:05 Assessment and Plan Assessment and plan (1) Left ureteral stone: Status: Acute Assessment and plan: We will make plans for cystoscopy and left retrograde pyelogram. Based on the location of the stone, we can choose either flexible ureteroscopy or semirigid ureteroscopy in an attempt to access and treat the stone. History of Present Illness History of Present Illness Chief Complaint: Left ureteral stone Narrative: This is a 43-year-old gentleman who does have a past history of kidney stones. Last year, he developed a right distal ureteral stone that was treated ureteroscopically. His imaging studies at that time also demonstrated a tiny nonobstructing stone in the left kidney. The stone composition was calcium based. He presents now with a months history of intermittent left flank pain nausea. He has no groin or testicular pain. He has not seen any gross hematuria. He was identified as having a left proximal ureteral stone. He has microscopic hematuria but no dysuria or episodes of retention. He has had some nausea. He has not had any fever or chills. Since he has failed conservative management, he presents for stone manipulation. Review of Systems Narrative: No fevers or chills No vision change or dysphasia No diabetes or thyroid dysfunction No shortness of breath, cough or hemoptysis No chest pain or palpitations GERD. No hepatitis, ulcers or jaundice No seizures, strokes or peripheral neuropathy No bleeding disorders or anemia No gout PFSH All Active Problems Left ureteral stone (Acute) Hydronephrosis with ureteral calculus (Acute) Bilateral inguinal hernia (Acute ~08/2023) Bilateral direct inguinal hernia (Acute ~08/2023) Neuralgia neuritis, sciatic nerve (Acute) Abdominal pain (Acute) Back pain (Acute) Medical History Hx of headache tension type headaches Right inguinal hernia GERD (gastroesophageal reflux disease) Right distal ureteral calculus Back problem JEANNIE on CPAP ADHD inattentive type Surgical History History of hernia surgery History of colonoscopy History of esophagogastroduodenoscopy (EGD) History of Pj fundoplication Family History Other Cancer Diabetes Social History Smoking/Tobacco Use Status: Never Smoking risk assessment performed?: Yes Alcohol Intake: current Alcohol Intake frequency: holidays/special occasions only Drug use: Never Substance use type: does not use Housing: house Do you feel safe at home: Yes Do you feel safe in your relationship?: Yes Meds Allergies and Home Medications Allergies Allergy/AdvReac Type Severity Reaction Status Date / Time apples Allergy Intermediate throat Uncoded 01/06/24 07:40 itching white birch pollen Allergy Intermediate Itching Uncoded 01/06/24 07:40 fluticasone propionate AdvReac Intermediate Epistaxis Uncoded 01/06/24 07:40 Home Medications Medication Instructions Recorded Confirmed Type lidocaine 5 % topical patch 1 patch topical DAILY #15 ea 05/05/21 01/06/24 Rx (Lidoderm) acetylcysteine 600 mg capsule (NAC) 600 mg PO BID 06/17/23 01/06/24 History cetirizine 10 mg capsule (Zyrtec) 10 mg PO DAILY PRN 06/17/23 01/06/24 History guanfacine 1 mg tablet,extended 1 mg PO BID 06/17/23 01/06/24 History release 24 hr multivitamin (Daily Multi-Vitamin 1 tab PO DAILY 06/17/23 01/06/24 History tablet) naproxen sodium 220 mg capsule 220 mg PO BID PRN 06/17/23 01/06/24 History (Aleve) omega 1-zga-vpl-fish oil 300 1 cap PO BID 06/17/23 01/06/24 History mg-1,000 mg capsule (Fish Oil) dextroamphetamine-amphetamine ER 30 mg PO DAILY 12/29/23 01/06/24 History 30 mg 24hr capsule,extend release ondansetron 4 mg disintegrating mg 01/06/24 History tablet tamsulosin 0.4 mg capsule mg PO 01/06/24 History Exam Const General: cooperative Neck Neck: supple Resp Effort & Inspection: normal respiratory effort Auscultation: clear to auscultation bilaterally Cardio Rate: regular rate Rhythm: regular rhythm GI Palpation: soft and no masses Neuro General: patient alert, patient awake and patient oriented x3 Results Imaging Additional studies: RUN DATE: 01/06/24 [facility] PAGE 1 RUN TIME: [id number] RUN USER: [place] [address] Jennifer Jim MD,PhD PATIENT REPORT PATIENT: Nicholas Méndez LOC: [facility] U #: [id number] /SX: 1980 M ROOM: RE07/21/[address]: SHAILA MEZA MD STATUS: DEP [facility] [place] BED: DIS: SPEC #: [id number] ADDI: 07/21/22 STATUS: COMP REQ #: [id number] RECD: 07/21/[address]: SHAILA MEZA MD ENTERED: 07/21/[address]: FAX #: ORDERED: Stone Anaylsis QUERIES: Source: Right Kidney Test Result Flag Reference Verified Kidney Stone Analysis Source: Right Kidney 07/23/22 Interpretation See Comment 07/23/22 60% Calcium oxalate monohydrate 30% Calcium oxalate dihydrate 10% Calcium phosphate (apatite) Test Performed by: [facility] [address] [place] [address] Instructional Design Technologist: Jus Rizvi M.D. 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
[2024-01-06] MEDS: ceFAZolin 2 GM/50 ML BAG IVPB (09:52)
[2024-01-06] MEDS: Lidocaine 2% Jelly 11 ML SYR (10:00)
[2024-01-06] MEDS: Omnipaque 300 MG/ML 50 ML BTL (10:00)
--- NOTE | 2024-01-06 10:29 | W.PM.DSUDISC ---
Date of service: 01/06/24 Time of Service: 10:29 Discharge Plan Disposition Patient Disposition: Home Condition: Stable Discharge Details Attending Provider: Jignesh Montoya Primary Care Provider: Arlene Kumar Home Meds and New Rx's Prescriptions: No Action naproxen sodium [Aleve] 220 mg capsule 220 mg PO BID PRN multivitamin [Daily Multi-Vitamin] Tablet 1 tab PO DAILY guanfacine 1 mg tablet extended release 24 hr 1 mg PO BID acetylcysteine [NAC] 600 mg capsule 600 mg PO BID Zyrtec 10 mg capsule 10 mg PO DAILY PRN omega 4-pke-tts-fish oil [Fish Oil] 300-1,000 mg capsule 1 cap PO BID lidocaine [Lidoderm] 5 % adhesive patch,medicated 1 patch topical DAILY Qty: 15 0RF Rx Instructions: leave on most painful area for up to 12 hrs, use no more than one patch per 24 hour period dextroamphetamine-amphetamine 30 mg capsule,extended release 24hr 30 mg PO DAILY tamsulosin 0.4 mg capsule PO Patient Comments: TAKE ONE CAPSULE BY MOUTH EVERY DAY AT BEDTIME FOR KIDNEY STONE FOR 7 DAYS ondansetron 4 mg tablet,disintegrating Patient Comments: 4 MG ORALLY EVERY 8 HOURS NEEDED FOR NAUSEA AND VOMITING FOR 5 DAYS Discharge Instructions Additional Instructions: You have a stent in place with a black string attached. The string is taped to the top of your penis. we will remove the stent in the office in about 1 week. It is not unusual to see blood in the urine and have discomfort when you urinate as long as the stent is in place Followup appt 1 week for stent removal. Additional followup appt 6 to 8 weeks with ultrasound ahead of time Activity:: Activity as Tolerated Shower/Bathe:: 24 hours Diet:: As Tolerated DS: Diagnosis Discharge Diagnosis (1) Left ureteral stone: Status: Acute
--- NOTE | 2024-01-06 10:35 | DI.RAD_ITS ---
Exam(s) XR RETROGRADE IN OR EXAM: XR RETROGRADE IN OR CLINICAL HISTORY: LEFT URETERAL STONE TECHNIQUE: 2D and realtime digital imaging was performed. CONTRAST MATERIAL: Refer to procedure report. COMPARISON: CT CT RENAL COLIC WO from 12/29/2023 FINDINGS: Fluoroscopy was provided for Dr. Montoya during the performance of a retrograde evaluation of the anup l collecting system. Please refer to the procedure report for complete details. Ka,r=8.26 mGy IMPRESSION: RADIATION DOSE DELIVERED: 0.0 0.0 0
--- NOTE | 2024-01-06 10:36 | W.PM.OP ---
Date of service: 01/06/24 Time of Service: 10:36 Operative Note Operative Note DATE OF PROCEDURE: 01/06/24 PRE-OP DIAGNOSIS: Left ureteral stone POST-OP DIAGNOSIS: same PROCEDURE: cystoscopy, left retrograde pyelogram, left ureteroscopy with holmium laser lithotripsy, extraction of stone fragments, insert left ureteral stent SURGEON: Jignesh Montoya ANESTHESIA TYPE: Local By Surgeon and General LMA/ETT Refer to Anesthesia Record ESTIMATED BLOOD LOSS: 5 PATHOLOGY: other (stone for chemical analysis) COMPLICATIONS: None Patient was transported to: PACU Patient's condition: stable Implants: 4.8 amharic by 22 to 30 cm left ureteral stent Indications: This is a 43-year-old gentleman who has a history of bilateral kidney stones. He has been having left flank pain and nausea and was found to have a left proximal ureteral stone. He failed conservative management and presents for stone manipulation Findings: left proximal ureteral stone Procedure Description: The patient was given preoperative antibiotics and brought to the operating room on 01/06/2024. After successful induction of general anesthesia, he was placed in the dorsal lithotomy position. His genitalia was prepped. 2% Xylocaine jelly was instilled into the urethra to act as a local anesthetic. A 22 Angolan rigid cystoscope was passed through the urethra into the bladder. The urethra and bladder were inspected with the 30 degree lens. The pendulous, membranous and bulbar urethra all appeared normal with no strictures. The prostatic urethra showed no papillary lesions or active bleeding. There was no significant median lobe of the prostate. The bladder neck was entered and the bladder mucosa was inspected. Both ureteral orifices appeared normal in configuration and location. The left orifice was cannulated with a 5 Angolan access catheter and a retrograde film was obtained by injecting Omnipaque through the access catheter under fluoroscopic guidance. A filling defect could be seen in the left proximal ureter. I was able to pass a guidewire through the lumen of the access catheter and advanced the wire up above the level of the stone. A dual-lumen catheter was then advanced and a second wire was positioned. We chose one of the wires as a safety wire and the other as a working wire. I passed a ureteral access sheath over the working wire and positioned the sheath such that the tip was in the mid ureter. I then passed the flexible ureteroscope through the lumen of the access sheath and advanced the scope up to the level of the stone. Once the stone was visualized, I treated the stone with a 272 ?m holmium laser fiber. We were able to break the stone into smaller fragments and grasped each of the fragments in a 0 tip stone basket. Each fragment was removed and sent to pathology for chemical analysis. At the completion of the procedure, no significant stone burden was identified. I removed the access sheath and ureteroscope. We passed a 4.8 Angolan variable length stent over the safety wire. The proximal end of the stent was curled in the renal pelvis and the distal end was curled in the bladder. The positioning of the stent was confirmed both fluoroscopically and cystoscopically. The safety string was left on the end of the stent and brought out through the urethra. The end of the safety string was anchored to the dorsum of the patient's penis using a Steri-Strip. The patient tolerated the procedure well with no complications.
[2024-01-06] MEDS: Phenazopyridine 200 MG TAB PO (11:39)
--- NOTE | 2024-01-06 12:32 | W.ANESPOSTOP ---
Postoperative Evaluation Date, Time and Location Date Performed: 01/06/24 Time Performed: 11:34 Patient Location: Day Surgery Unit Vital Signs Most Recent Imported Vital Signs: Most Recent Vital Signs Temp Pulse Resp BP Pulse Ox 36.4 C L 62 16 138/95 H 95 01/06/24 11:35 01/06/24 11:35 01/06/24 11:35 01/06/24 11:35 01/06/24 11:35 Pain Score Most Recent Pain Score: Most Recent Pain Score Pain Level 3 01/06/24 11:35 Assessment Mental Status: Awake (Alert & Oriented to Patient Baseline) Airway and Respiratory Function: Patent airway with normal (patient baseline) respiratory exam Cardiovascular Function: Hemodynamically Stable Hydration Status: Adequately Hydrated Nausea & Vomiting: No Nausea or Vomiting Pain: Pain is tolerable per patient Peripheral Nerve Block: Patient did not receive a nerve block
[2024-01-12 19:05] LABS: Source: Urethra
== END 2024-01-06 12:08 | disposition home or self-care (01) ==
PROVIDERS: PCP Nurse Practitioner Family; Visit Provider Urology
PROC: (CPT 52356; principal; 2024-01-06 09:15)
DX: N20.1 Calculus of ureter (principal); G47.33 Obstructive sleep apnea (adult) (pediatric); K21.9 Gastro-esophageal reflux disease without esophagitis
CPT/HCPCS: 52356; 74420; 82365; J0131; J0690; J1100; J2250; J2405; J2704; Q9967

== ENCOUNTER 2024-02-13 12:26 | Observation (INO) | payer OTHER, SELFPAY ==
[2024-02-13] VITALS (24 sets, daily range): BP systolic 113–152; BP diastolic 78–105; PULSE 65–92; RESP 8–18; TEMP 36.5–36.8; O2SAT 96–100
--- NOTE | 2024-02-13 12:15 | RT.EKG_ITS ---
APPROVED REPORT Exam: Resting ECG Reason for Exam: chest pain Patient Location: E HR:80 bpm ECG Measurements Heart Rate 80 AXIS TN 187 P 66 QRSd 98 QRS 55 QT 361 T 58 QTc 417 Conclusion Sinus rhythm...normal P axis, V-rate 60- 99 Physician: no stemi
--- NOTE | 2024-02-13 12:45 | DI.RAD_ITS ---
Exam(s) XR PORTABLE CHEST AP EXAM: XR PORTABLE CHEST AP CLINICAL HISTORY: chest pain TECHNIQUE: 2D digital imaging was performed. COMPARISON: CR XR CHEST 2V PA LATERAL from 05/05/2021 FINDINGS: Leads overlie the chest. LUNGS: Suboptimally inflated but clear. No pleural abnormality seen. HEART: Normal size. AORTA: Normal diameter. BONES: Unremarkable for age. Soft tissues: Unremarkable. IMPRESSION: No acute findings. DATA REPOSITORY: RADIATION DOSE DELIVERED:
[2024-02-13 12:51] LABS: Abs Immature Grans 0.02 10^3/uL (0.0-0.06); Absolute Basophil Count 0.03 10^3/uL (0.0-0.2); Absolute Eosinophil Count 0.16 10^3/uL (0.0-0.7); Absolute Lymphocyte Count 1.11 10^3/uL (1.2-3.4); Absolute Monocyte Count 0.46 10^3/uL (0.1-0.8); Absolute Neutrophil Count 3.33 10^3/uL (1.2-6.7); Basophils % 0.6 %; Eosinophils % 3.1 %; HGB 16.9 g/dL (13.5-17.5); Immature Grans % 0.4 %; Lymphocytes % 21.7 %; MCHC 35.2 % (32.0-36.0); MCV 91 fL (80-95); MPV 9.2 fL (8.0-11.0); Neutrophils % 65.2 %; Platelet Count 176 10^3/uL (130-400); RBC 5.28 10^6/uL (4.36-5.78); RDW 12.3 % (11.8-14.1); RDW-SD 40.5 fL; WBC 5.11 10^3/uL (4.4-10.8)
[2024-02-13 13:08] LABS: Bilirubin Negative (Negative); Blood Negative (Negative); Clarity Clear (Clear); Glucose Negative (Negative); Ketones Negative (Negative); Leukocyte Esterase Negative (Negative); Nitrite Negative (Negative); Specific Gravity 1.015 (1.005-1.025); Urobilinogen 0.2 mg/dL (Up to 0.2); pH 7.5 (5-8)
[2024-02-13 13:22] LABS: ALT 60 U/L (16-63); AST 28 U/L (15-37); Albumin 4.2 g/dL (3.4-5.0); Alkaline Phosphatase 80 U/L (46-116); Anion Gap 7.9 mmol/L (3-11); BUN 16 mg/dL (7-18); Bilirubin, Total 0.91 mg/dL (0.2-1.0); CO2 31.1 mmol/L (21.0-32.0); CREATININE 1.3 mg/dL (0.70-1.30); Calcium 9.4 mg/dL (8.5-10.1); Chloride 104 mmol/L (98-107); Estimated GFR 69.47 (mL/min/1.73m2); Glucose 123 mg/dL (74-106); NT-proBNP 18 pg/mL (<300); Potassium 3.7 mmol/L (3.5-5.1); Sodium 143 mmol/L (136-145); TSH (W/Ref FT4) 2.93 uIU/mL (0.36-3.74); Total Protein 7.7 g/dL (6.4-8.2); Troponin I < 50 ng/L (< or =60)
[2024-02-13 13:38] LABS: D-Dimer 261 ng/mlFEU (<500)
--- NOTE | 2024-02-13 14:06 | DI.VRAD_ITS ---
PROCEDURE INFORMATION: Exam: XR Chest Exam date and time: 02/13/2024 1:00 PM Age: 43 years old Clinical indication: Other: Chest pain TECHNIQUE: Imaging protocol: Radiologic exam of the chest. Views: 1 view. COMPARISON: CR XR CHEST 2V PA LATERAL 05/05/2021 8:04 AM FINDINGS: Lungs: Unremarkable. No consolidation. Pleural spaces: Unremarkable. No pleural effusion. No pneumothorax. Heart/Mediastinum: Unremarkable. No cardiomegaly. Bones/joints: Unremarkable. IMPRESSION: No acute findings. Dictated and Authenticated by: Guillermo Clark MD. Ordering:DAE Kumari MD
[2024-02-13 14:45] LABS: INR 1.1 (0.9-1.1)
--- NOTE | 2024-02-13 15:02 | ED.GENADUL_ITS ---
Discharge Plan Disposition Patient Disposition: Admit to [facility] Condition: Good Discharge Details Chief Complaint: Chest Pain Clinical Impression: Chest pain Primary Care Provider: Arlene Kumar ED Provider: Quoc Ventura Home Meds and New Rx's Prescriptions: No Action naproxen sodium [Aleve] 220 mg capsule 220 mg PO BID PRN multivitamin [Daily Multi-Vitamin] Tablet 1 tab PO DAILY guanfacine 1 mg tablet extended release 24 hr 1 mg PO BID acetylcysteine [NAC] 600 mg capsule 600 mg PO BID Zyrtec 10 mg capsule 10 mg PO DAILY PRN omega 0-len-ten-fish oil [Fish Oil] 300-1,000 mg capsule 1 cap PO BID dextroamphetamine-amphetamine 30 mg capsule,extended release 24hr 30 mg PO DAILY Patient Comments: hasn't been taking in the last few days tamsulosin 0.4 mg capsule 0.4 mg PO DAILY Hold Instructions: per pt, if I'm having a stone Patient Comments: TAKE ONE CAPSULE BY MOUTH EVERY DAY AT BEDTIME FOR KIDNEY STONE FOR 7 DAYS ondansetron 4 mg tablet,disintegrating 4 mg PO PRN Hold Instructions: per pt, if I'm having a stone Patient Comments: 4 MG ORALLY EVERY 8 HOURS NEEDED FOR NAUSEA AND VOMITING FOR 5 DAYS ketorolac 10 mg tablet 10 mg PO TID PRN Hold Instructions: per pt, if I'm having a stone Patient Comments: TAKE 1 TABLET ORALLY 3 TIMES A DAY NEEDED FOR PAIN FOR 5 DAYS TAKE IF R ENAL COLIC HAPPENS HPI General Date/Time Provider Initiated Documentation: 02/13/24 12:31 . HPI Narrative: This is a 43-year-old male with a past medical history of kidney stones, previous bilateral inguinal hernias, GERD, hypertension, known mild arterial disease, family history of strokes, Pj fundoplication, who is never smoked, and who does not drink, who presents today for evaluation of chest pain. Patient states that around 11 AM yesterday he developed mild chest tightness which initially started at rest, but was worsened with activity. He felt some lightheadedness at the time but no syncope. When he would get up walk around and ambulate it would make things worse, when he would rest it would get slightly better but not resolved at all. He does admit to some mild bilateral flank achiness, but denies any significant pain. He denies any pleuritic chest pain or severe shortness of breath but does admit to feeling mildly short of breath with activity. He denies any recent long trips, surgeries or procedures. He denies any vomiting or diarrhea. No other complaints at this time. No other modifying factors. He denies any tearing or ripping sensation in his chest. No arm neck or shoulder pain. Denies PE risk factors such as recent long car rides, immobilization, recent surgery, prior history of DVT or PE, family history of PE or DVT, morbid obesity, exogenous estrogen and smoking, hemoptysis, history of cancer. Related Data Home Medications Medication Instructions Recorded Confirmed acetylcysteine 600 mg capsule (NAC) 600 mg PO BID 06/17/23 02/13/24 cetirizine 10 mg capsule (Zyrtec) 10 mg PO DAILY PRN 06/17/23 02/13/24 guanfacine 1 mg tablet,extended 1 mg PO BID 06/17/23 02/13/24 release 24 hr multivitamin (Daily Multi-Vitamin 1 tab PO DAILY 06/17/23 02/13/24 tablet) naproxen sodium 220 mg capsule 220 mg PO BID PRN 06/17/23 02/13/24 (Aleve) omega 7-sfb-uvo-fish oil 300 1 cap PO BID 06/17/23 02/13/24 mg-1,000 mg capsule (Fish Oil) dextroamphetamine-amphetamine ER 30 mg PO DAILY 12/29/23 02/13/24 30 mg 24hr capsule,extend release ondansetron 4 mg disintegrating 4 mg PO PRN 01/06/24 02/13/24 tablet tamsulosin 0.4 mg capsule 0.4 mg PO DAILY 01/06/24 02/13/24 ketorolac 10 mg tablet 10 mg PO TID PRN 02/13/24 02/13/24 Allergies Allergy/AdvReac Type Severity Reaction Status Date / Time apples Allergy Intermediate throat Uncoded 02/13/24 12:34 itching white birch pollen Allergy Intermediate Itching Uncoded 02/13/24 12:34 fluticasone propionate AdvReac Intermediate Epistaxis Uncoded 02/13/24 12:34 General Stated Complaint: Chest Pain RONDA: 2 Review of Systems All systems reviewed & are unremarkable except as noted in HPI and below Exam Narrative Exam Narrative: 1.Const: Well-nourished, Well-developed, appearing stated age 2.Eyes: PERRL, no conjunctival injection, and symmetrical lids. 3.ENT: Atraumatic external nose and ears. Moist MM. Neck: Symmetric, trachea midline, No thyromegaly. 4.CVS: +S1/S2, No murmurs or gallops. Peripheral pulses 2+ and equal in all extremities. Brisk capillary refill in all extremities. 5.RESP: Unlabored respiratory effort. Clear to auscultation bilaterally. No wheezes rales or rhonchi 6.GI: Soft, Nontender/Nondistended, No hepatosplenomegaly. No guarding or rebound. 7.MSK: Normocephalic/Atraumatic, Extremities w/o deformity or ttp No cyanosis or clubbing, Normal movement of all extremities 8.Skin: Warm, Dry. No rashes or lesions. 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 Sensation grossly intact, no focal neurologic deficits. 10.Psych: (AAO) x3. Appropriate mood and affect Course Vital Signs Vital signs: Vital Signs Pulse 86 02/13/24 12:30 Respiratory Rate 18 02/13/24 12:30 Blood Pressure 152/105 H 02/13/24 12:30 Pulse Oximetry 100 02/13/24 12:30 Pulse 72 02/13/24 14:16 Pulse 77 02/13/24 14:16 Respiratory Rate 12 02/13/24 14:16 Respiratory Effort Normal, Non-Labored 02/13/24 12:34 Blood Pressure 125/88 02/13/24 14:16 Blood Pressure Mean 99 02/13/24 14:16 Blood Pressure Position Sitting 02/13/24 12:30 Pulse Oximetry 100 02/13/24 12:30 Oxygen Delivery Method Room Air 02/13/24 12:30 Oxygen Flow Rate 0 02/13/24 12:30 Lab/Test Results Lab/Test Results: Laboratory Tests Range/Units 02/13/24 02/13/24 12:35 12:50 WBC (4.4-10.8) 10^3/uL 5.11 RBC (4.36-5.78) 10^6/uL 5.28 Hgb (13.5-17.5) g/dL 16.9 Hct (40.0-50.0) % 48.0 MCV (80-95) fL 91 MCH (27.0-33.0) pg 32.0 MCHC (32.0-36.0) % 35.2 RDW (11.8-14.1) % 12.3 Plt Count (130-400) 10^3/uL 176 MPV (8.0-11.0) fL 9.2 Immature Gran % % 0.4 Neutrophils % % 65.2 Lymphocytes % % 21.7 Monocytes % % 9.0 Eosinophils % % 3.1 Basophils % % 0.6 Nucleated RBC % (0.0-0.3) % 0.0 Absolute Neutrophils (1.2-6.7) 10^3/uL 3.33 Absolute Lymphocytes (1.2-3.4) 10^3/uL 1.11 L Absolute Monocytes (0.1-0.8) 10^3/uL 0.46 Absolute Eosinophils (0.0-0.7) 10^3/uL 0.16 Absolute Basophils (0.0-0.2) 10^3/uL 0.03 PT (9.1-11.1) sec 11.0 INR (0.9-1.1) 1.1 APTT (23.6-32.8) sec 27.0 D-Dimer (<500) ng/mlFEU 261 Sodium (136-145) mmol/L 143 Potassium (3.5-5.1) mmol/L 3.7 Chloride (98-107) mmol/L 104 Carbon Dioxide (21.0-32.0) mmol/L 31.1 Anion Gap (3-11) mmol/L 7.9 BUN (7-18) mg/dL 16 Creatinine (0.70-1.30) mg/dL 1.3 Est GFR (CKD-EPI 2020) (mL/min/1.73m2) 69.47 Glucose (74-106) mg/dL 123 H Calcium (8.5-10.1) mg/dL 9.4 Total Bilirubin (0.2-1.0) mg/dL 0.91 AST (15-37) U/L 28 ALT (16-63) U/L 60 Alkaline Phosphatase (46-116) U/L 80 Troponin I (< or =60) ng/L < 50 NT-Pro-B Natriuret Pep (<300) pg/mL 18 Total Protein (6.4-8.2) g/dL 7.7 Albumin (3.4-5.0) g/dL 4.2 TSH (0.36-3.74) uIU/mL 2.93 Urine Color (Yellow) Yellow Urine Clarity (Clear) Clear Urine pH (5-8) 7.5 Ur Specific [place] (1.005-1.025) 1.015 Urine Protein (Neg-Trace) mg/dL Negative Urine Ketones (Negative) mg/dL Negative Urine Blood (Negative) Negative Urine Nitrite (Negative) Negative Urine Bilirubin (Negative) Negative Urine Urobilinogen (Up to 0.2) mg/dL 0.2 Ur Leukocyte Esterase (Negative) Negative Urine Glucose (Negative) mg/dL Negative Medical Decision Making This is a 43-year-old male with a past medical history of kidney stones, previous bilateral inguinal hernias, GERD, hypertension, known mild arterial disease, family history of strokes, Pj fundoplication, who is never smoked, and who does not drink, who presents today for evaluation of chest pain. Patient states that around 11 AM yesterday he developed mild chest tightness which initially started at rest, but was worsened with activity. He felt some lightheadedness at the time but no syncope. When he would get up walk around and ambulate it would make things worse, when he would rest it would get slightly better but not resolved at all. He does admit to some mild bilateral flank achiness, but denies any significant pain. He denies any pleuritic chest pain or severe shortness of breath but does admit to feeling mildly short of breath with activity. He denies any recent long trips, surgeries or procedures. He denies any vomiting or diarrhea. No other complaints at this time. No other modifying factors. He denies any tearing or ripping sensation in his chest. No arm neck or shoulder pain. Denies PE risk factors such as recent long car rides, immobilization, recent surgery, prior history of DVT or PE, family history of PE or DVT, morbid obesity, exogenous estrogen and smoking, hemoptysis, history of cancer. Exam demonstrates a well-appearing male, no acute distress, vital signs stable. Heart rate stable. Patient currently feels well while at rest here. With the patient's history, risk factors I am concerned for coronary artery disease, symptoms appear inconsistent with STEMI at this time, EKG is benign. PE is on the differential but less likely, dehydration, is of concern. Will get an x- ray, D-dimer, evaluate for concerning etiologies, monitor closely and reassess. 325 aspirin will be administered. 3:20 PM Laboratory workup has returned, D-dimer normal, no white count bandemia or left shift. Electrolytes normal, troponin normal. Thyroid function normal. No evidence of hypothyroidism. No evidence of urolithiasis or hematuria. Chest x- ray negative for acute process per radiology. Patient remained stable and asymptomatic at this time. Pending repeat troponin. 4:13 PM Repeat troponin has returned normal, pain is minimal. Patient is at 3 points for his heart score, if he is a year older he would be 4 points. With his risk factors, concerning history, and diagnosed arterial vascular disease on CTA of the head and neck just a month or so ago, I do have concern for present risk factors. We discussed risks and benefits of outpatient stress testing versus inpatient, he would like to proceed with inpatient testing. I do feel that this is a very reasonable and appropriate approach at this time. Discussed the case with hospitalist Dr. Allen, he agrees with the assessment and plan. Patient will be admitted. I have extensively reviewed the treatment plan with the patient. I have addressed all patient concerns at this time. I have also discussed the plan with the admitting physician and they agree with the current assessment and plan and have agreed to assume responsibility for the patient. All parties demonstrate verbal understanding and agreement with our assessment and plan at this time. The documentation in this chart was dictated using [employer] dictation software. Please excuse any dictation errors. FINDINGS: Lungs: Unremarkable. No consolidation. Pleural spaces: Unremarkable. No pleural effusion. No pneumothorax. Heart/Mediastinum: Unremarkable. No cardiomegaly. Bones/joints: Unremarkable. IMPRESSION: No acute findings. Thank you for allowing us to participate in the care of your patient. Dictated and Authenticated by: Guillermo Clark MD 02/13/2024 2:06 PM Eastern Time ([place] & [place]) Quality:SDOH Health Related Social Needs: No Data to Display PFSH All Active Problems (Updated 02/13/24 @ 16:15 by Quoc Ventura DO) Chest pain (Acute) Bilateral inguinal hernia (Acute ~08/2023) Bilateral direct inguinal hernia (Acute ~08/2023) Neuralgia neuritis, sciatic nerve (Acute) Abdominal pain (Acute) Back pain (Acute) Medical History (Updated 02/13/24 @ 16:15 by Quoc Ventura DO) Hx of headache tension type headaches Right inguinal hernia GERD (gastroesophageal reflux disease) Right distal ureteral calculus Back problem JEANNIE on CPAP ADHD inattentive type Surgical History History of hernia surgery History of colonoscopy History of esophagogastroduodenoscopy (EGD) History of Pj fundoplication Family History Other Cancer Diabetes Social History Smoking/Tobacco Use Status: Never Smoking risk assessment performed?: Yes Alcohol Intake: current Alcohol Intake frequency: holidays/special occasions only Drug use: Never Substance use type: does not use Housing: house Do you feel safe at home: Yes Do you feel safe in your relationship?: Yes
[2024-02-13] MEDS: Normal Saline 500 ML IV (15:33)
[2024-02-13 15:53] LABS: Troponin I < 50 ng/L (< or =60)
--- NOTE | 2024-02-13 16:07 | W.PM.HP.N ---
Date of service: 02/13/24 Time of Service: 16:05 Assessment and Plan Assessment and plan (1) Chest pain: Status: Acute Assessment and plan: Reproducible chest pain to left lower sternum Troponins negative X2, trending troponin Telemetry PRN EKG and troponin for chest pain MPI in AM pending negative troponins (2) GERD (gastroesophageal reflux disease): Assessment and plan: Pantoprazole 40 mg PO daily (3) ADHD: Assessment and plan: On home Guanfacine (4) On deep vein thrombosis (DVT) prophylaxis: Status: Acute Assessment and plan: On lovenox SC (5) Discharge planning issues: Status: Acute Assessment and plan: CM to F/u most likely to go home after negative MPI Discussed with Dr. Joaquin History of Present Illness History of Present Illness Chief Complaint: Chest pain Narrative: This 43 years old non-smoker male patient with past medical history of kidney stone , HTN, gradually increasing weight, past CTA mild -diffused atherosclerosis and reported stenosis, GERD with Pj fundoplication, and a family history of stroke, presented the to ED at [facility] via private vehicle with spouse for evaluation of chest discomfort starting at 11AM yesterday starting at rest and irradiating to back, worsening with activity slight alleviation without resolution at rest. The pain lingered overnight with an episode of transient left side arm, armpit and jaw pain. When waking up with this lingering mild pain the patient decided to come to the ED. The patient reported some lightheadedness at symptom onset and now with change in position without syncope, and intermittent alternating bilateral flank achiness. Relevant workup in the ED showed negative troponins x 2, unremarkable chemistry with a glucose of 123, and negative UA, unremarkable coags including D-dimer. Chest x-ray showed no acute findings. EKG did not show any acute ischemic changes. In the ED chest pain is now minimal. Due to past medical history and a HEART score around 3, the hospitalist was consulted and the patient admitted to the medical surgical floor for observation for evaluation and management of chest pain. When seen in the ED, the patient also reported mild transient nausea without diaphoresis. The patient denies diagnosis of immunosuppression or recent viral illness wears a N-95 mask d/t exposure to [place] and wanting to prevent COIVID-19 infection. Review of Systems All systems reviewed & are unremarkable except as noted in HPI and below PFSH All Active Problems (Updated 02/13/24 @ 17:49 by Vera Gibson APRN) Discharge planning issues (Acute) On deep vein thrombosis (DVT) prophylaxis (Acute) Chest pain (Acute) Bilateral inguinal hernia (Acute ~08/2023) Bilateral direct inguinal hernia (Acute ~08/2023) Neuralgia neuritis, sciatic nerve (Acute) Abdominal pain (Acute) Back pain (Acute) Medical History (Updated 02/13/24 @ 17:49 by Vera Gibson APRN) Hx of headache tension type headaches Right inguinal hernia GERD (gastroesophageal reflux disease) Right distal ureteral calculus Back problem JEANNIE on CPAP ADHD inattentive type Surgical History History of hernia surgery History of colonoscopy History of esophagogastroduodenoscopy (EGD) History of Pj fundoplication Family History Other Cancer Diabetes Social History Smoking/Tobacco Use Status: Never Smoking risk assessment performed?: Yes Alcohol Intake: current Alcohol Intake frequency: holidays/special occasions only Drug use: Never Substance use type: does not use Housing: house Do you feel safe at home: Yes Do you feel safe in your relationship?: Yes Meds Allergies and Home Medications Allergies Allergy/AdvReac Type Severity Reaction Status Date / Time apples Allergy Intermediate throat Uncoded 02/13/24 12:34 itching white birch pollen Allergy Intermediate Itching Uncoded 02/13/24 12:34 fluticasone propionate AdvReac Intermediate Epistaxis Uncoded 02/13/24 12:34 Home Medications Medication Instructions Recorded Confirmed Type acetylcysteine 600 mg capsule (NAC) 600 mg PO BID 06/17/23 02/13/24 History cetirizine 10 mg capsule (Zyrtec) 10 mg PO DAILY PRN 06/17/23 02/13/24 History guanfacine 1 mg tablet,extended 1 mg PO BID 06/17/23 02/13/24 History release 24 hr multivitamin (Daily Multi-Vitamin 1 tab PO DAILY 06/17/23 02/13/24 History tablet) naproxen sodium 220 mg capsule 220 mg PO BID PRN 06/17/23 02/13/24 History (Aleve) omega 6-uaa-elk-fish oil 300 1 cap PO BID 06/17/23 02/13/24 History mg-1,000 mg capsule (Fish Oil) dextroamphetamine-amphetamine ER 30 mg PO DAILY 12/29/23 02/13/24 History 30 mg 24hr capsule,extend release ondansetron 4 mg disintegrating 4 mg PO PRN 01/06/24 02/13/24 History tablet tamsulosin 0.4 mg capsule 0.4 mg PO DAILY 01/06/24 02/13/24 History ketorolac 10 mg tablet 10 mg PO TID PRN 02/13/24 02/13/24 History Exam Narrative Exam Narrative: Constitutional The patient is well groomed without acute distress, minimal chest pressure to left lower sternum / epigastric region that is reproducible HENMT: Head is atraumatic, normocephalic, no lymphadenopathy. Facial structures with normal appearance Eyes: Well aligned, intact ROM Neck: Normal ROM, no meningeal signs Neuro:alert and oriented to self, person, place, time and situation. No neurological focal deficit Chest:Chest is symmetrical and normal appearance Resp: Clear lung bilaterally with deep breathing Cardio:SR HR 71 , regular rhythm, S1, S2, no murmur, capillary refill<3 sec., bilateral radial and malleolar pulses are positive GI: No abdominal pain, non- acute abd : Negative Costovertebral angle tenderness Back/spine/Pelvis: No back tenderness, normal alignment Integumentary: No skin lesions or rash Extremities: strength 5/5 to bilateral lower and upper extremities Psych: RASS 0, congruent mood and normal affect. Results Labs 02/13/24 12:35 02/13/24 12:35 Labs: Laboratory Results - last 24 hr 02/13/24 02/13/24 02/13/24 12:35 12:50 15:30 WBC 5.11 RBC 5.28 Hgb 16.9 Hct 48.0 MCV 91 MCH 32.0 MCHC 35.2 RDW 12.3 Plt Count 176 MPV 9.2 Immature Gran % 0.4 Neutrophils % 65.2 Lymphocytes % 21.7 Monocytes % 9.0 Eosinophils % 3.1 Basophils % 0.6 Nucleated RBC % 0.0 Absolute Neutrophils 3.33 Absolute Lymphocytes 1.11 L Absolute Monocytes 0.46 Absolute Eosinophils 0.16 Absolute Basophils 0.03 PT 11.0 INR 1.1 APTT 27.0 D-Dimer 261 Sodium 143 Potassium 3.7 Chloride 104 Carbon Dioxide 31.1 Anion Gap 7.9 BUN 16 Creatinine 1.3 Est GFR (CKD-EPI 2020) 69.47 Glucose 123 H Calcium 9.4 Total Bilirubin 0.91 AST 28 ALT 60 Alkaline Phosphatase 80 Troponin I < 50 < 50 NT-Pro-B Natriuret Pep 18 Total Protein 7.7 Albumin 4.2 TSH 2.93 Urine Color Yellow Urine Clarity Clear Urine pH 7.5 Ur Specific [place] 1.015 Urine Protein Negative Urine Ketones Negative Urine Blood Negative Urine Nitrite Negative Urine Bilirubin Negative Urine Urobilinogen 0.2 Ur Leukocyte Esterase Negative Urine Glucose Negative Last Vital Signs Pulse 68 02/13/24 15:00 Resp 10 L 02/13/24 15:00 BP 119/85 02/13/24 15:00 Pulse Ox 100 02/13/24 12:30 Time Spent Time spent with Patient: >75 minutes Time was spent: preparing to see the patient(eg.review tests), obtaining and/or reviewing separately otained hiistory, ordering medications,tests, procedures, referring, communicating with other health adult care provider, indepentently interpreting results, counseling the patient and care coordination
[2024-02-13] MEDS: Aspirin 325 MG TAB PO (16:24)
[2024-02-13] MEDS: Enoxaparin 40 MG/0.4 ML SYR SC (18:05)
[2024-02-13] MEDS: Pantoprazole 40 MG TABCR PO (18:06)
[2024-02-13] MEDS: Normal Saline Flush 10 ML SYR IVP (20:00)
[2024-02-13] MEDS: Omega-3 Fatty Acids 1000 MG CAP PO (20:00)
--- NOTE | 2024-02-13 21:02 | RESPIRATORY ---
RT spoke with patient for JEANNIE. Pt. states that he does use CPAP machine called ResMed airsence 10 without supplemental of O2 which he did not bring it with him here. Pt. refused to use hospital's CPAP tonight and advised RT that he will be okay without it for a couple of night. RT informed pt. to bring HU if he is going to stay more nights in [facility].
[2024-02-13 21:59] LABS: Troponin I < 50 ng/L (< or =60)
[2024-02-14 00:01] VITALS: BP 121/88; PULSE 68; RESP 18; O2SAT 97
--- NOTE | 2024-02-14 06:00 | DI.NM_ITS ---
APPROVED REPORT Exam: Exercise Treadmill Patient Location: In-Patient Room/Bed: [facility] Stress Nurse: Dot Trujillo RN Ordering Provider:TAMEKA NELSON, Contact Number: BMI: 27.76 Baseline Rhythm: Sinus Rhythm Indications: Chest pain, Medical History Medical History: GERD, DVT prophylaxis, atherosclerosis, ADHD, JEANNIE on CPAP, HTN Cardiac Medications: Acetylcysteine, guanfacine, dextroamphetamine-amphetamine ER, zofran, tamsulosin , ketorolac Allergies: Apples, white birch, fluticasone propionate Cardiac Risk Factors: HTN, CVD Previous Cardiac Procedures: None Pretest Chest Pain Characteristics: None Exercise History: Indeterminate Physical Disabilities: None Lung Sounds: Clear to auscultation Heart Sounds: Regular Stress Test Details Test: Exercise stress testing was performed using a Randolph protocol. Nuclear Acquisition: Rest Tc-99m/Stress Tc-99m 1 day Rest Isotope: Tc-99m Sestamibi. Dose: 11.0 Date: 02/14/2024 Injection Time: 0930 Stress Isotope: Tc-99m Sestamibi. Dose: 31.0 Date: 02/14/2024 Injection Time: 1110 HR Resting HR Supine: 83 bpm Max Heart Rate (APMHR): 176.134975 bpm Resting HR Standin bpm Target HR (85% APMHR): 149.451867 bpm Max HR Achieved: 169 bpm % of APMHR: 96.02 Recovery HR: 96 bpm HR response to stress: Normal HR response to stress BP Resting BP Supine: 130/90 mmHg Resting BP Standin/90 mmHg Max BP: 168/98 mmHg Recovery BP: 126/82 mmHg BP response to stress: Normal blood pressure response to stress. ECG Resting ECG: Sinus Rhythm Ectopy: None Stress ECG: Sinus Tachycardia ST Change: No significant ST segment changes noted Arrhythmia: None Recovery ECG: Sinus Rhythm Recovery ST Change: No significant ST segment changes noted Recovery Arrhythmia: None Clinical Reason for Termination: Target HR Achieved, Fatigue Stress Symptoms: 2/10 chest tightness. fatigue Exercise duration: 07 min00 sec Highest Stage Reached: Stage 2: 2.5 mph at 12% grade. Exercise capacity: 8.58 METs Angina Score: None Cormier Treadmill Score: 2.4 Rate Pressure Product: [id number] Stress ECG Conclusion 1. Resting electrocardiogram was normal 2. Patient exercised on the Randolph protocol and completed a workload of 8.58 METS 3. Normal heart rate and blood pressure response to exercise. The patient achieved 96% of predicted heart rate for age 4. There was no electrocardiographic evidence of myocardial ischemia 5. See MPI report Cormier Treadmill Score is 2.4 which is Moderate risk. MPI Conclusion Myocardial perfusion is normal. There is no ischemia or evidence of prior infarction Ejection fraction is 61% with normal wall motion Radiologist Interpretation Radiologist Interpretation by: Ajith Stapleton MD Interpretation Date/Time: 02/14/2024 16:15:46
[2024-02-14 06:30] LABS: Abs Immature Grans 0.02 10^3/uL (0.0-0.06); Absolute Basophil Count 0.04 10^3/uL (0.0-0.2); Absolute Eosinophil Count 0.22 10^3/uL (0.0-0.7); Absolute Lymphocyte Count 1.68 10^3/uL (1.2-3.4); Absolute Monocyte Count 0.54 10^3/uL (0.1-0.8); Absolute Neutrophil Count 3.31 10^3/uL (1.2-6.7); Basophils % 0.7 %; Eosinophils % 3.8 %; HCT 46.4 % (40.0-50.0); HGB 16.1 g/dL (13.5-17.5); Immature Grans % 0.3 %; Lymphocytes % 28.9 %; MCH 31.8 pg (27.0-33.0); MCHC 34.7 % (32.0-36.0); MCV 92 fL (80-95); Monocytes % 9.3 %; Platelet Count 172 10^3/uL (130-400); RBC 5.06 10^6/uL (4.36-5.78); RDW 12.6 % (11.8-14.1); RDW-SD 41.9 fL; WBC 5.81 10^3/uL (4.4-10.8)
[2024-02-14 06:42] VITALS: BP 117/89; PULSE 71; RESP 18; TEMP 36.3; O2SAT 97
[2024-02-14 06:57] LABS: ALT 54 U/L (16-63); AST 27 U/L (15-37); Albumin 3.8 g/dL (3.4-5.0); Alkaline Phosphatase 69 U/L (46-116); Anion Gap 8.8 mmol/L (3-11); BUN 16 mg/dL (7-18); Bilirubin, Total 0.76 mg/dL (0.2-1.0); CO2 29.2 mmol/L (21.0-32.0); CREATININE 1.3 mg/dL (0.70-1.30); Calcium 8.6 mg/dL (8.5-10.1); Chloride 107 mmol/L (98-107); Estimated GFR 69.47 (mL/min/1.73m2); Glucose 97 mg/dL (74-106); Potassium 3.7 mmol/L (3.5-5.1); Sodium 145 mmol/L (136-145); Total Protein 6.9 g/dL (6.4-8.2)
[2024-02-14] MEDS: Pantoprazole 40 MG TABCR PO (08:03)
[2024-02-14] MEDS: Multivitamin TAB 1 TAB PO (08:03)
[2024-02-14] MEDS: Omega-3 Fatty Acids 1000 MG CAP PO (08:03)
[2024-02-14] MEDS: Acetylcysteine 600 MG CAP PO (08:36)
[2024-02-14] MEDS: Normal Saline Flush 10 ML SYR IVP (08:37)
[2024-02-14 12:38] VITALS: BP 134/98; PULSE 89; RESP 18; TEMP 36.3; O2SAT 96
--- NOTE | 2024-02-14 13:15 | DSE_ITS ---
Date of service: 02/14/24 Time of Service: 13:15 DS: Diagnosis Discharge Diagnosis (1) Chest pain: Status: Acute (2) GERD (gastroesophageal reflux disease): (3) ADHD: (4) On deep vein thrombosis (DVT) prophylaxis: Status: Acute (5) Discharge planning issues: Status: Acute Discharge Plan Disposition Patient Disposition: Home Condition: Good Discharge Details Reason For Visit: Chest Pain Admit Date/Time: 02/13/24 16:26 Admit Provider: Malik Joaquin Attending Provider: Malik Joaquin Primary Care Provider: Arlene Kumar [facility] Hospital Course: This is a 43 year old male patient with past medical history of hypertension, kidney stones, GERD with Pj fundoplication, and a family history of stroke who presented to the [facility] ED for evaluation of chest discomfort radiating to the back, associated with lightheadedness, transient left-sided arm, armpit, and jaw pain, as well as intermittent bilateral flank achiness. The chest discomfort started at rest yesterday at 11 AM, worsening with activity, and irradiating to the back. The pain lingered overnight with an episode of transient left-sided arm, armpit, and jaw pain. Quinn complained of lightheadedness at symptom onset, intermittent alternating bilateral flank achiness, and mild transient nausea without diaphoresis. Patient wears N-95 mask when out in public to prevent COVID-19 infection. Labs in the ED Troponins: Negative x 2; Chemistry: Unremarkable with glucose of 123; Urinalysis negative; Coagulation Studies: Unremarkable including D-dimer, Chest X-ray: as read by the radiologist, no acute findings; Electrocardiogram: No acute ischemic changes. Patient's heart score 3, moderate risk for major adverse cardiac event therefore patient was placed on observation status on the medical floor to trend troponin, watch overnight and do a stress test today. Patient is pain free and states he feels that the pain he felt could have been his GERD acting up. Stress test: Resting electrocardiogram was normal. Patient exercised on the Randolph protocol and completed a workload of 8.58 METS. Normal heart rate and blood pressure response to exercise. The patient achieved 96% of predicted heart rate for age. There was no electrocardiographic evidence of myocardial ischemia. Cormier Treadmill Score is 2.4 which is Moderate risk. Patients with a DTS indicating moderate risk typically require closer follow-up and may benefit from further diagnostic testing or interventions to manage their cardiovascular health. This might include lifestyle modifications, medication adjustments, or additional cardiac evaluation. Cardiology referral sent. Home Meds and New Rx's Prescriptions: Continued naproxen sodium [Aleve] 220 mg capsule 220 mg PO BID PRN multivitamin [Daily Multi-Vitamin] Tablet 1 tab PO DAILY guanfacine 1 mg tablet extended release 24 hr 1 mg PO BID acetylcysteine [NAC] 600 mg capsule 600 mg PO BID Zyrtec 10 mg capsule 10 mg PO DAILY PRN omega 8-cvm-uso-fish oil [Fish Oil] 300-1,000 mg capsule 1 cap PO BID dextroamphetamine-amphetamine 30 mg capsule,extended release 24hr 30 mg PO DAILY Patient Comments: hasn't been taking in the last few days Discontinued tamsulosin 0.4 mg capsule 0.4 mg PO DAILY Hold Instructions: per pt, if I'm having a stone Patient Comments: TAKE ONE CAPSULE BY MOUTH EVERY DAY AT BEDTIME FOR KIDNEY STONE FOR 7 DAYS ondansetron 4 mg tablet,disintegrating 4 mg PO PRN Hold Instructions: per pt, if I'm having a stone Patient Comments: 4 MG ORALLY EVERY 8 HOURS NEEDED FOR NAUSEA AND VOMITING FOR 5 DAYS ketorolac 10 mg tablet 10 mg PO TID PRN Hold Instructions: per pt, if I'm having a stone Patient Comments: TAKE 1 TABLET ORALLY 3 TIMES A DAY NEEDED FOR PAIN FOR 5 DAYS TAKE IF RENAL COLIC HAPPENS Discharge Instructions Instructions: Chest pain - Discharge instructions Additional Instructions: We sent a referral to cardiology. The decision to initiate aspirin therapy should consider a broader evaluation of your overall cardiovascular risk profile and medical history. Aspirin therapy is not without risks, particularly the risk of gastrointestinal bleeding and, less commonly, bleeding in the brain. The potential benefits of aspirin therapy in reducing cardiovascular events must be weighed against these risks, and your PCP and the track worker are the best providers to asses that and make recommendations. Heart healthy diet, walking is good for you. Stand Alone Forms: Nursing Discharge Form Referrals: Deysi Saunders MD [ [facility] STAFF PHYSICIAN] - (DTS indicates moderate risk ) Arlene Kumar [Primary Care Provider] - (1-2 weeks post in patient stay) Activity:: Activity as Tolerated Equipment/Supplies:: No Equipment Needed Diet:: As Tolerated Discharge Orders Discharge Orders: Discharge Order (Routine); Ordered 06/24/24 Ordered By: Candace Monae DS: Summary Time Spent with Patient providing and/or coordinating discharge services: Greater than 30 minutes Status at Discharge Functional status at discharge: independent ambulation Overall status at discharge: patient is back to baseline Mental Status: mental status grossly normal Speech and Movement: speech and movement normal Mood: congruent mood Affect: normal affect Quality:SDOH Health Related Social Needs: No Data to Display Exam Const General: cooperative, healthy appearing and not in acute distress Neck Neck: normal visual inspection, no lymphadenopathy and supple Thyroid: thyroid normal Resp Effort & Inspection: normal respiratory effort Auscultation: clear to auscultation bilaterally Cardio Jugular venous pressure: no JVD Rate: regular rate Rhythm: regular rhythm Heart Sounds: S1 normal and S2 normal GI Inspection: normal to inspection Palpation: soft, no guarding and nontender Percussion: normal to percussion Auscultation: normal bowel sounds Neuro General: patient alert, patient awake and patient oriented x3 Psych Appearance: grossly normal Mental Status: mental status grossly normal Speech and Movement: speech and movement normal Mood: congruent mood Affect: normal affect DS: Data Vitals/I&O Vitals and I&O: Vital Signs Temperature 36.3 C L 02/14/24 12:38 Temperature Source Skin 02/14/24 12:38 Pulse 89 02/14/24 12:38 Pulse Rhythm Regular 02/14/24 09:24 Pulse 69 02/13/24 17:16 Respiratory Rate 18 02/14/24 12:38 Respiratory Effort Normal, Non-Labored 02/14/24 09:24 Respiratory Depth Normal 02/14/24 09:24 Respiratory Pattern Normal 02/14/24 09:24 Blood Pressure 134/98 H 02/14/24 12:38 Blood Pressure Mean 105 02/13/24 17:16 Blood Pressure Position Sitting 02/13/24 12:30 Pulse Oximetry 96 02/14/24 12:38 Oxygen Delivery Method Room Air 02/14/24 12:38 Oxygen Flow Rate 0 02/14/24 12:38 Pain Level 0 02/14/24 12:38 Comment Patient returned to unit asymptomatic from stress test 02/14/24 12:38 Intake & Output 02/13/24 02/14/24 02/14/24 23:59 11:59 23:59 Intake Total 510 / 510 Balance 510 / 510 Weight 85.5 kg Intake: IV 510 / 510 Other: Urine Appearance Clear Comment Patient up to bathroom and voiding independently Data Completed and Pending Labs on day of discharge: Labs from last 24 hours 02/14/24 02/13/24 02/13/24 06:20 21:30 15:30 WBC 5.81 RBC 5.06 Hgb 16.1 Hct 46.4 MCV 92 MCH 31.8 MCHC 34.7 RDW 12.6 Plt Count 172 MPV 9.0 Immature Gran % 0.3 Neutrophils % 57.0 Lymphocytes % 28.9 Monocytes % 9.3 Eosinophils % 3.8 Basophils % 0.7 Nucleated RBC % 0.0 Absolute Neutrophils 3.31 Absolute Lymphocytes 1.68 Absolute Monocytes 0.54 Absolute Eosinophils 0.22 Absolute Basophils 0.04 PT INR APTT D-Dimer Sodium 145 Potassium 3.7 Chloride 107 Carbon Dioxide 29.2 Anion Gap 8.8 BUN 16 Creatinine 1.3 Est GFR (CKD-EPI 2020) 69.47 Glucose 97 Calcium 8.6 Total Bilirubin 0.76 AST 27 ALT 54 Alkaline Phosphatase 69 Troponin I < 50 < 50 NT-Pro-B Natriuret Pep Total Protein 6.9 Albumin 3.8 TSH 02/13/24 12:35 WBC RBC Hgb Hct MCV MCH MCHC RDW Plt Count MPV Immature Gran % Neutrophils % Lymphocytes % Monocytes % Eosinophils % Basophils % Nucleated RBC % Absolute Neutrophils Absolute Lymphocytes Absolute Monocytes Absolute Eosinophils Absolute Basophils PT 11.0 INR 1.1 APTT 27.0 D-Dimer 261 Sodium 143 Potassium 3.7 Chloride 104 Carbon Dioxide 31.1 Anion Gap 7.9 BUN 16 Creatinine 1.3 Est GFR (CKD-EPI 2020) 69.47 Glucose 123 H Calcium 9.4 Total Bilirubin 0.91 AST 28 ALT 60 Alkaline Phosphatase 80 Troponin I < 50 NT-Pro-B Natriuret Pep 18 Total Protein 7.7 Albumin 4.2 TSH 2.93 PFSH All Active Problems (Updated 02/13/24 @ 17:49 by Vera Gibson APRN) Discharge planning issues (Acute) On deep vein thrombosis (DVT) prophylaxis (Acute) Chest pain (Acute) Bilateral inguinal hernia (Acute ~08/2023) Bilateral direct inguinal hernia (Acute ~08/2023) Neuralgia neuritis, sciatic nerve (Acute) Abdominal pain (Acute) Back pain (Acute) Medical History (Updated 02/13/24 @ 17:49 by Vera Gibson APRN) Hx of headache tension type headaches Right inguinal hernia GERD (gastroesophageal reflux disease) Right distal ureteral calculus Back problem JENANIE on CPAP ADHD inattentive type Surgical History History of hernia surgery History of colonoscopy History of esophagogastroduodenoscopy (EGD) History of Pj fundoplication Family History Other Cancer Diabetes Social History Smoking/Tobacco Use Status: Never Smoking risk assessment performed?: Yes Alcohol Intake: current Alcohol Intake frequency: holidays/special occasions only Drug use: Never Substance use type: does not use Housing: house Do you feel safe at home: Yes Do you feel safe in your relationship?: Yes Time Spent with Patient Time Spent with Patient: 45-69 minutes Time was spent: preparing to see the patient(eg.review tests), ordering medications,tests, procedures, referring, communicating with other health career orientation teacher, indepentently interpreting results, counseling the patient and care coordination
--- NOTE | 2024-02-14 13:20 | PHA.REVIEW2 ---
Pharmacy Admission Review Admission Clinical Review Admission Pharmacy Review: Discharge planning issues (Acute) On deep vein thrombosis (DVT) prophylaxis (Acute) Chest pain (Acute) apples Allergy (Intermediate, Uncoded 02/13/24 12:34) throat itching white birch pollen Allergy (Intermediate, Uncoded 02/13/24 12:34) Itching fluticasone propionate Adverse Reaction (Intermediate, Uncoded 02/13/24 12:34) Epistaxis Resuscitation Status Full Code Height 5 ft 9 in Weight 85.5 kg Comments Comments/Follow Ups: Stress test today Pharmacy Admission Review Renal Dosing Renal Dosing: BUN 16 mg/dL (7-18) 02/14/24 06:20 Creatinine 1.3 mg/dL (0.70-1.30) 02/14/24 06:20 Medications needing adjustments: Reviewed (CrCl 78.5 mL/min) List of meds needing interventions: Current medications are okay Anticoagulation Anticoagulation: Hgb 16.1 g/dL (13.5-17.5) 02/14/24 06:20 Hct 46.4 % (40.0-50.0) 02/14/24 06:20 Plt Count 172 10^3/uL (130-400) 02/14/24 06:20 INR 1.1 (0.9-1.1) 02/13/24 12:35 Creatinine 1.3 mg/dL (0.70-1.30) 02/14/24 06:20 DVT Prophylaxis: Reviewed Medications: Enoxaparin (40mg daily) Relevant Labs Relevant Labs: Sodium 145 mmol/L (136-145) 02/14/24 06:20 Potassium 3.7 mmol/L (3.5-5.1) 02/14/24 06:20 Chloride 107 mmol/L (98-107) 02/14/24 06:20 Electrolytes, C-Reactive P, ESR: Reviewed Cardiac Review Cardiac Review: Troponin I < 50 ng/L (< or =60) 02/13/24 21:30 NT-Pro-B Natriuret Pep 18 pg/mL (<300) 02/13/24 12:35 Blood Pressure 134/98 1238 Blood Pressure 117/89 0642 BP, HR, EF%: Reviewed (BP 143/98 and HR WNL) QTc Review QTc: Reviewed (417 from 02/13/24) IV to PO Switch IV Medications: Reviewed Home Meds Home Med List reviewed: Reviewed Relevent Home Meds Not ordered & why?: Ketorolac (PRN for kidney stone), ondansetron (PRN for kidney stone) and tamsulosin (PRN for kidney stone) Guanfacine ER non-formulary. Put in as patient's own. Will call up and ask if this can be brought in if patient is not discharged today (per morning meeting patient is most likely being discharged) Current Meds Current Medication Order Review: Reviewed Comments Comments/Follow Ups: Stress test today
== END 2024-02-14 14:25 | disposition home or self-care (01) ==
LOC: ER 17:14 → MS 17:22
PROVIDERS: Nurse Practitioner Acute Care; Admitting Provider Family Medicine; Emergency Provider Student in an Organized Health Care Education/Training Program; PCP Nurse Practitioner Family; Visit Provider Family Medicine
DX: R07.89 Other chest pain (principal); R06.02 Shortness of breath; K21.9 Gastro-esophageal reflux disease without esophagitis; F90.9 Attention-deficit hyperactivity disorder, unspecified type; I10 Essential (primary) hypertension; Z82.3 Family history of stroke; G47.33 Obstructive sleep apnea (adult) (pediatric); Z87.442 Personal history of urinary calculi; Z79.899 Other long term (current) drug therapy
CPT/HCPCS: 00123; 36415; 78452; 80053; 93005; 96360; 96361; 96372; 99285; J1650; 71045; 81003; 83880; 84443; 84484; 85025; 85379; 85610; 85730; 93010; 93017; 99223; 99239; G0378